=== PATIENT | male | born 1945 | race Caucasian/White ===

== ENCOUNTER → 2017-04-09 | Outpatient (CLI) | payer MEDICARE, BC ==
[2016-08-09 18:34] VITALS: BMI 31.9
[~2017-04-09] MED LIST: ACE325 PO; ACET500T68 PO; ALBU8.5H IH; ALLO100T70 PO; AMOX1TAB9 PO; ASP325 PO; ASP81 PO; ASPI-1471 PO; ASPI-715 PO; AUG875 PO; AZIT-17 PO; BIS10S PR; BUPR-136 PO; BUPR200T18 PO; CA C1TAB85 PO; CAR3.125 PO; CAR6.25 PO; CASP50VI2 IV; CEFT2FRO4 IV; CELE-1 PO; CHOL200074 PO; CLIN300C99 PO; CLO75 PO; DEXL60CA6 PO; DIA10 PO; DIA5 PO; DIAZ-308 PO; DIAZ-311 PO; DICL1TAB85 PO; DOC100 PO; DULO30CA35 PO; DULO60CA51 PO; DULOXETINE; ENOX40DI8 SQ; ESOM40CA42 PO; FEXO180T74 PO; FLU IM; FLUC200T56 PO; FLUT12HF2 IH; FLUT16SP20 NS; FLUT1DIS28 IH; GABA-549 PO; HYDR-5517 PO; ITRA10SO2 PO; KET10 PO; LANS30CA63 PO; LANS30TA PO; LEV500 PO; LEVO-85 PO; LEVO750T44 PO; LID5T TOP; LIDO10VI16 IB; LIS5 PO; LISI5TAB25 PO; LOR10/500 PO; LOR5/325; LORA-630 PO; LOSA100T67 PO; MELO-205 PO; METR-1 PO; MOM PO; MORP-18 PO; MORP-20 PO; MORP-21 PO; MORP60TA50 PO; MULT1TAB64 PO; NIF10 PO; NIFS30 PO; NIT4 SL; NYST100016 PO; OMEP40CA48 PO; ONDA4TAB PO; OXYC-373 PO; OXYC-375 PO; OXYC-865 PO; OXYC-870 PO; OXYC20TA77 PO; OXYC20TA86 PO; OXYC30TA3 PO; OXYC60TA PO; OXYGENHOME INH; PAN40 PO; PANT40TA65 PO; PER PO; POLY17PO25 PO; PRE50 PO; PRED-420 PO; PRED20TA6 PO; RANI-320 PO; ROS10 PO; SIMV-42 PO; SIMV-49 PO; TAMS0.4C25 PO; TAMS0.4C70 PO; TIO18R INH; TRAZ-163 PO; TRAZ150T61 PO; TRAZ50 PO; TRI40I IART; TRILPIX PO; VALA100062 PO; ZOLP-350 PO; [UNRECOGNIZED DRUG - CODE] PO; [UNRECOGNIZED DRUG - CODE] PO; oxygen
[2017-04-09 11:31] LABS: PLATELET COUNT, AUTOMATED 329 K/uL (150-450)
--- NOTE | 2017-04-09 11:52 | RADIOLOGY IMAGING REPORT ---
[place] [facility] [place] NAME: Jaswinder Hall : 1945 MR: [id number] V: [id number] EXAM DATE: ORDERING PHYSICIAN: LEANNE DOWNING TECHNOLOGIST: Location: [facility] Patient: Jaswinder Hall : 1945 Visit/Account:[id number] Date of Sevice: 04/09/2017 CHEST PA AND LAT Additional pertinent History: COPD dyspnea hypertension COMPARISON STUDIES: 03/15/2017 FINDINGS: Support lines and catheters: Oxygen tubing. There are stimulator leads extending into the mid thoraci c spine Lungs and Pleura: There are pleural reactive atelectatic and scarring changes at the left lung base. Blunting of both costophrenic angles compatible with small effusions left greater than right. When compared to previous study a central perihilar engorgement and a perihilar interstitial reticula r-nodular lung change is shown improvement. This likely represents improvement in what had been an el ement of pulmonary vascular congestion and interstitial pulmonary edema. Alternatively, an atypical b ilateral perihilar pneumonitis resolution is a possibility as well. Heart and vasculature: Negative. Yumi and Mediastinum: Negative. Bones and Chest wall: Negative. Upper Abdomen: Negative. IMPRESSION: 1. Persistent atelectatic and pleural reactive/scarring changes noted in both lung bases left greater than right. Interval clearing of what appear to have been a pulmonary vascular congestion and perihi lar interstitial pulmonary edema pattern. Recommend clinical correlation appropriate follow-up. Report Dictated By: Bjorn Clemens MD at 04/09/2017 11:43 AM Report E-Signed By: Bjorn Clemens MD at 04/09/2017 11:46 AM WSN:[id number]
--- NOTE | 2017-04-09 12:11 | EKG ---
FACILITY: [facility] [place] PATIENT NAME: YVES HERRING : [id number] MR: [id number] V: [id number] EXAM DATE: ORDERING PHYSICIAN: LEANNE DOWNING TECHNOLOGIST: KEENA Test Reason : CAD Blood Pressure : / mmHG Vent. Rate : 054 BPM Atrial Rate : 054 BPM P-R Int : 172 ms QRS Dur : 090 ms QT Int : 458 ms P-R-T Axes : 048 043 035 degrees QTc Int : 434 ms Sinus bradycardia Otherwise normal ECG Referred By: SALINA Confirmed By:
== END ==
LOC: LAB 10:38
PROVIDERS: ATTEND Internal Medicine
DX: J98.11 Atelectasis (principal); J98.4 Other disorders of lung; R00.1 Bradycardia, unspecified; J44.9 Chronic obstructive pulmonary disease, unspecified; G89.29 Other chronic pain; R06.00 Dyspnea, unspecified; I10 Essential (primary) hypertension; I25.10 Atherosclerotic heart disease of native coronary artery without angina pectoris
CPT/HCPCS: 36415; 71046; 82040; 82247; 82310; 82374; 82435; 82565; 82947; 84075; 84132; 84155; 84295; 84443; 84450; 84460; 84520; 85025

== ENCOUNTER 2017-04-10 00:16 | Observation (INO) | payer MEDICARE, BC ==
[2017-04-10] VITALS (15 sets, daily range): BP systolic 111–153; BP diastolic 55–95
[~2017-04-10] VITALS: Ht 172.7 cm; Wt 82.3 kg
[2017-04-10] MEDS ORDERED: ROPIVACAINE 0.2% 20 ML VIAL ONE (06:47)
[2017-04-10] MEDS ORDERED: NORMOSOL R SOLN(*) 1000 ML BAG 1,000 ML IV PRN (12:00)
[2017-04-10] MEDS ORDERED: MIDAZOLAM 2 MG/2 ML VIAL IVP ONE (12:00)
[2017-04-10] MEDS ORDERED: LIDOCAINE/SOD BICARB 8.4% SYR ID ONE (12:00)
[2017-04-10] MEDS ORDERED: ceFAZolin(*) 2GM/D5W 50ML 50 ML IVPB ONE (12:00)
[2017-04-10] MEDS ORDERED: BACITRACIN OINT 15 GM TUBE TP ONE (13:05)
[2017-04-10] MEDS ORDERED: ALBUTEROL/IPRATROPIUM 3 ML NEB ONE (13:11)
[2017-04-10] MEDS ORDERED: ROPIVACAINE 0.5% 20 ML VIAL ONE (13:27)
[2017-04-10] MEDS ORDERED: LIDOCAINE MPF 1% 5 ML VIAL ONE (13:28)
[2017-04-10] MEDS ORDERED: PROPOFOL EMUL(*) 10MG/ML 20 ML 20 ML ONE (13:28)
[2017-04-10] MEDS ORDERED: MIDAZOLAM 2 MG/2 ML VIAL ONE (13:48)
[2017-04-10] MEDS ORDERED: KETAMINE HCL 200 MG/20 ML MDV ONE (14:22)
[2017-04-10] MEDS ORDERED: PROMETHAZINE 25 MG/ML 1 ML AMP IVP PRN (15:55)
[2017-04-10] MEDS ORDERED: ONDANSETRON 4 MG/2 ML VIAL IVP PRN (15:55)
[2017-04-10] MEDS ORDERED: FLUSH 10 ML SYR IVP PRN (15:55)
[2017-04-10] MEDS: MORPHINE 4 MG/ML SYR IVP PRN ×2 (19:50→22:10)
[2017-04-10] MEDS: ceFAZolin 1 GM VIAL IVP SCH (21:06)
[2017-04-10] MEDS ORDERED: GABAPENTIN 300 MG CAP PO SCH ×2 (22:20→22:56)
[2017-04-10] MEDS: SALMETEROL/FLUTIC 250/50 1 INH INH SCH (22:20)
[2017-04-10] MEDS ORDERED: traZODone HCL 50 MG TAB PO PRN (22:20)
[2017-04-10] MEDS ORDERED: ALBUTEROL 2.5 MG/3 ML NEB NEB PRN (22:20)
--- NOTE | 2017-04-10 22:35 | Hospitalist Progress Note ---
Subjective Progress Notes Subjective No cp/sob. 1100cc of crystalloid, ketamine and versed given intra-op. Physical Exam Vital Signs Date Time Temp Pulse Resp B/P (MAP) Pulse Ox O2 Delivery O2 Flow Rate FiO2 04/10/17 22:00 66 133/66 (88) 93 04/10/17 20:17 98.2 16 04/10/17 19:22 Nasal Cannula 4.0 Intake and Output 04/11/17 07:00 Intake Total 1250 ml Output Total 600 ml Balance 650 ml Intake IV Total 1250 ml Output Urine Total 600 ml # Voids 1 General Appearance: Alert, Awake, No Acute Distress Cardiovascular: Regular Rate and Rhythm Respiratory: Clear to Auscultation Extremities: No Edema Assessment and Plan Problems: (1) Bimalleolar ankle fracture Status: Acute Assessment & Plan: He had an ORIF of the left ankle. No CV/pulmonary issues. (2) COPD (chronic obstructive pulmonary disease) Status: Chronic Assessment & Plan: Lungs are clear. He is chronically on Spiriva and Advair. Will restart both and give the Advair tonight. He will get albuterol prn. (3) Chronic back pain Status: Chronic Assessment & Plan: Continue MS Contin, Percocet, and Gabapentin. (4) GERD (gastroesophageal reflux disease) Status: Chronic Assessment & Plan: Continue Protonix. (5) BPH (benign prostatic hyperplasia) Status: Chronic Assessment & Plan: Continue Flomax. (6) Hypertension, benign Onset Date: 02/13/2014 Status: Chronic Assessment & Plan: Continue Coreg with parameters. (7) Coronary artery disease Status: Chronic Assessment & Plan: Continue ASA. Will hold Simvastatin for now. (8) Depression Status: Chronic Assessment & Plan: Continue Cymbalta. (9) Gout, unspecified Status: Chronic Assessment & Plan: Continue Allopurinol. Copies to: LEANNE DOWNING MD Exam Sepsis Risk: No Definite Risk DARYL RING MD Apr 10, 2017 22:35
--- NOTE | 2017-04-10 23:00 | OPERATIVE REPORT 1 ---
EVENT DATE: April 10, 2017 SURGEON: Jose Best MD SAFETY PERSON: RITA Mendoza ANESTHESIOLOGIST: Jason Cavazos MD ANESTHESIA: General PREOPERATIVE DIAGNOSIS Left bimalleolar ankle fracture. POSTOPERATIVE DIAGNOSIS Left bimalleolar ankle fracture. PROCEDURE PERFORMED Open reduction and internal fixation bimalleolar ankle fracture. ESTIMATED BLOOD LOSS Minimum. TOURNIQUET TIME Less than an hour. DESCRIPTION OF OPERATION The patient was brought to the operating room and placed in the supine position. She had a bump placed under her left hip. Her left lower extremity was prepped and draped in the normal sterile fashion using Prevail and a sterile stockinette. A sterile U-drape and a sterile extremity drape were placed over the lower extremity. The stockinette was incised right above the knee and held with Coban. An Esmarch was then used to exsanguinate the lower extremity, and the tourniquet was turned up to 300 mmHg. The first incision that was made was over the lateral malleolus. The skin was incised with a 15 blade and taken down to subcutaneous tissue. The subcutaneous tissue was bluntly dissected down to the fracture. The fracture was identified. There was marked scarring being four weeks out. Therefore, we spent a lot of time debriding the fracture site and all the scarring around the fracture, but nothing had actually healed. Once I was able to open this up, I was able to get it out to length with no issue. I then turned my attention to the medial malleolus. I opened up the medial side. There was almost a complete ulcer on that side. There was no evidence of any gross infection or drainage. I made an incision just over the medial malleolus. The skin was incised with a 15 blade and carried down to the subcutaneous tissue. The subcutaneous tissue was bluntly dissected down to the fracture. I then debrided this fracture because there was a lot of scarring, and I could not get complete reduction until I removed it. Once I had all of the scar removed, I was easily able to reduce the medial side as well as the lateral side. On the lateral side, I then placed a six-hole one-third tubular plate. I locked the distal screws first using three locking distal screws. I then placed a push-pull screw just proximally and then used a lamina team otr truck driver to push the plate out just to get exactly the length I wanted, and then I locked the proximal screws. The last screw I placed was the lag screw between the fracture using a 3.5/2.5 lag technique. I brought fluoroscopy in, checked the AP and lateral, and found to have excellent alignment of the fracture with hardware in good position. I then turned my attention to fixing the medial side. I was able to reduce the medial side using a two-part reduction clamp. I brought fluoroscopy in, AP and lateral, and found to have excellent alignment. I then placed two screws in a lag technique across it, using a 3.5/2.5 lag technique, both 40 mm in length. I brought fluoroscopy in, AP and lateral, and found to have excellent alignment in the lateral and the anterior x-rays. I closed using 3-0 Monocryl and talat , Adaptic, 4 x 4's, and Kenneth. The patient went to recovery with no complications. ELGIN
[2017-04-10] MEDS: MORPHINE 60 MG PO SCH (23:01)
[2017-04-10] MEDS: PANTOPRAZOLE SOD 40 MG TABEC PO SCH (23:02)
[2017-04-10] MEDS: buPROPion SR 150 MG TABCR PO SCH (23:02)
[2017-04-11] VITALS: BP 131/54
[2017-04-11 03:45] VITALS: BP 100/52
[2017-04-11] MEDS: MORPHINE 4 MG/ML SYR IVP PRN ×3 (04:14→11:49)
[2017-04-11] MEDS: ceFAZolin 1 GM VIAL IVP SCH ×2 (05:15→13:18)
[2017-04-11] MEDS: SALMETEROL/FLUTIC 250/50 1 INH INH SCH (05:49)
[2017-04-11] MEDS: GABAPENTIN 300 MG CAP PO SCH ×2 (05:53→11:48)
[2017-04-11] MEDS ORDERED: TIOTROPIUM BROM INH 18 MCG/CAP INH SCH (06:00)
[2017-04-11 07:37] VITALS: BP 105/48
[2017-04-11] MEDS: MORPHINE 60 MG PO SCH (08:23)
[2017-04-11] MEDS: buPROPion SR 150 MG TABCR PO SCH (08:23)
[2017-04-11] MEDS: PANTOPRAZOLE SOD 40 MG TABEC PO SCH (08:23)
[2017-04-11] MEDS: CARVEDILOL 3.125 MG TAB PO SCH ×2 (08:23→08:26)
--- NOTE | 2017-04-11 08:52 | Hospitalist Progress Note ---
Subjective Progress Notes Subjective No cp/sob. He is having more chronic back pain and the ankle is more painful this morning. Physical Exam Vital Signs Date Time Temp Pulse Resp B/P (MAP) Pulse Ox O2 Delivery O2 Flow Rate FiO2 04/11/17 08:07 91 Nasal Cannula 4.0 04/11/17 07:37 97.8 67 20 105/48 (67) General Appearance: Alert, Awake, No Acute Distress Respiratory: Clear to Auscultation Assessment and Plan Problems: (1) Bimalleolar ankle fracture Status: Acute Assessment & Plan: He had an ORIF of the left ankle. No CV/pulmonary issues. (2) COPD (chronic obstructive pulmonary disease) Status: Chronic Assessment & Plan: Lungs are clear. He is chronically on Spiriva and Advair. He is on O2 at 3-4 liters at home, baseline. He will get albuterol prn while in the hospital. (3) Chronic back pain Status: Chronic Assessment & Plan: Continue MS Contin, Percocet, and Gabapentin. (4) GERD (gastroesophageal reflux disease) Status: Chronic Assessment & Plan: Continue Protonix. (5) BPH (benign prostatic hyperplasia) Status: Chronic Assessment & Plan: Continue Flomax. (6) Hypertension, benign Onset Date: 02/13/2014 Status: Chronic Assessment & Plan: Continue Coreg with parameters while in the hospital. He is to restart it in 2 days if he goes home today. (7) Coronary artery disease Status: Chronic Assessment & Plan: Continue ASA. Will hold Simvastatin for now. (8) Depression Status: Chronic Assessment & Plan: Continue Cymbalta. (9) Gout, unspecified Status: Chronic Assessment & Plan: Continue Allopurinol. Exam Sepsis Risk: No Definite Risk DARYL RING MD Apr 11, 2017 08:52
[2017-04-11] MEDS ORDERED: TAMSULOSIN HCL 0.4 MG CAP PO SCH (09:00)
[2017-04-11] MEDS ORDERED: ALLOPURINOL 100 MG TAB PO SCH (09:00)
[2017-04-11] MEDS ORDERED: ASPIRIN 81 MG ENTERIC COATED PO SCH (09:00)
[2017-04-11] MEDS ORDERED: DULoxetine HCL 30 MG CAPCR PO SCH (09:00)
[2017-04-11 09:56] VITALS: Ht 172.7 cm; Wt 82.3 kg
[2017-04-11] MEDS ORDERED: OXYC-870 PO (13:27)
[2017-04-12] MEDS ORDERED: DULO30CA35 PO (14:12)
[2017-04-17] MEDS ORDERED: OXYC-375 PO (12:59)
[2017-04-17] MEDS ORDERED: MORP60TA50 PO (12:59)
== END 2017-04-11 13:14 | disposition home health service (06) ==
LOC: OR 00:16 → MED 16:55 → INTOOBSV 16:55
PROVIDERS: ADMIT Orthopaedic Surgery; ATTEND Orthopaedic Surgery
DX: S82.845A Nondisplaced bimalleolar fracture of left lower leg, initial encounter for closed fracture (principal)
CPT/HCPCS: 27814; 76000; 76942; 94640; 97116; 97161; 97530; A9270; C1713; G0378; J0690; J2001; J2250; J2270; J2704; J2795; J3490; J3535; J7620

== ENCOUNTER 2017-08-30 11:15 | Outpatient (RCR) | payer MEDICARE, BC ==
--- NOTE | 2017-08-10 13:56 | PT INITIAL EVALUATION ---
MEDICAL DIAGNOSIS: Left Ankle Bimalleolar Fracture with Medial Joint Granuloma TREATMENT DIAGNOSIS: Left Ankle Bimalleolar Fracture with Medial Joint Granuloma DATE OF ONSET: 03/18/17 SUBJECTIVE: Jaswinder is a 71 year-old male presenting to physical therapy 4 MO following surgical intervention for a bimalleolar fracture of the L ankle. Pt broke his ankle on 03/18/17, and had surgery on 04/10/17. Healing was complicated by the formation of a granuloma along the medial malleolus. Pt has been working on his ROM and mobility independently and is now fully ambulatory with occasional use of a cane or walker for balance and stability. Pt reports that the ankle has no pain currently and only hurts when he walks for a long time, goes up stairs, or twists on it. Pt has high back pain today and has a history of back pain and COPD. REHAB PROBLEM LIST: Increased Pain Decreased ROM Decreased Strength Impaired Transfers Decreased Endurance Decreased Function Decreased ADL's Decreased Mobility Decreased Gait PREVIOUS MEDICAL HISTORY: See EMR OCCUPATION: Retired from [employer] OBJECTIVE: Pt is on oxygen throughout session. Posture: Significant forward trunk lean with increased thoracic kyphosis. ROM: Ankle ROM (L,R): PF: 30, 40, DF: 2,2, Ever: 15,16, Inv: 11, 30. Strength: LE MMT (L,R): Hip: Flex: 4,5, Ext: 4+, 4+, Abd: 4+, 4+, Add: 5, 5. Knee: Ext: 4+, 4+, Flex: 5, 5. Ankle: PF: 4, 4+, DF: 4+, 4+, Ever: 4+, 5, Inv: 4+, 4+ Palpation: Pt is tender to palpation along medial malleolus with significant restrictions surrounding incision and tightness of skin and swelling and a small scab remaining mid portion. Lateral incision has good mobility. Gait: Forward trunk lean with wide NATALIE without hip ext. Balance: 4 Stage Balance: Narrow NATALIE: 25 sec with significant AP sway and onset of back pain Other Objective Findings: FOTO Ankle/Knee: 42/50 ASSESSMENT: Pt shows signs and symptoms consistent with generalized weakness and decreased motion secondary to L ankle fx with surgical intervention. Physical therapy is indicated to address the above listed impairments to improve pt function with ADL's and ambulation. Short Term Goals In 3 weeks pt will increase L hip and knee strength to equal to that of the R hip and knee for improved function with ADL's. In 3 weeks pt will be able to hearing aid consultant tandem stance B for > 10 seconds for improved balance with ADL's. In 6 weeks pt will increase FOTO ankle score to 46/50 for improved function with ADL's. In 6 weeks pt will improve L ankle ROM to equal to that of the R side for improved function with ADL's. Patient's Goals Improve function, strength and mobility. PLAN: Patient to be seen for Manual Therapy/STM/MET Strengthening/condition Ice/Heat Range of Motion Spinal Stabilization Ultrasound Stretching Iontophoresis Neuromuscular Re-ed Closed Chain Program Electrical Stim Posture/Body mechanics Gait Trg/Balance Trg Biofeedback Home Exercise Program Mech./Manual Traction Therapeutic Activities 2x/Week for 6 Weeks If you have any questions, comments, or concerns about this report or plan, please contact me at . Thank you, Hannah Prakash, PT, DPT, CLT ELGIN
[~2017-08-30 11:15] MED LIST changes: +DULO60CA56 PO; -OXYC-375 PO; +OXYC1TAB78 PO
[2017-08-31] MEDS ORDERED: DULO60CA7 PO (11:05)
== END 2017-08-30 18:00 | disposition home or self-care (01) ==
LOC: PT 11:15
PROVIDERS: ATTEND Orthopaedic Surgery
DX: Z47.89 Encounter for other orthopedic aftercare (principal); S82.842S Displaced bimalleolar fracture of left lower leg, sequela; R20.2 Paresthesia of skin; M62.81 Muscle weakness (generalized); M54.9 Dorsalgia, unspecified; X58.XXXS Exposure to other specified factors, sequela
CPT/HCPCS: 97162

== ENCOUNTER 2017-09-02 15:50 | Inpatient (IN) | payer MEDICARE, BC ==
[~2017-09-02] VITALS: Ht 172.7 cm; Wt 86.6 kg
--- NOTE | 2017-09-02 15:54 | ER Report ---
History and Physical Time Seen By MD: 15:54 HPI/ROS CHIEF COMPLAINT: chest pain/sob HISTORY OF PRESENT ILLNESS: Pt states that today at 11am started with sharp r sided chest pain that makes it difficult for him to take a deep breath. Pt unable to get comfortable. Pt has copd and hx of heart ds but states this feels different. no leg pain. no recent travel. PT called ems since not improving. Symptoms constant. ems states he was in the 70s on his usual 5 liters oxygen at home so put him on nonrebreather to bring him up to 90. Pt states he tried inhaler at home no relief. pt asking for somethinh for pain. REVIEW OF SYSTEMS: Constitutional: No fever, no chills. Eyes: No discharge. ENT: No sore throat. Cardiovascular: + right sided chest pain, no palpitations. Respiratory: No cough, + shortness of breath. Gastrointestinal: No abdominal pain, no vomiting. Genitourinary: No hematuria. Musculoskeletal: No back pain. Skin: No rashes. Neurological: No headache. Allergies: Coded Allergies: cyclobenzaprine (Verified Adverse Reaction, Intermediate, felt very sleepy and confused. , 08/31/17) Home Meds Active Scripts Allopurinol (ALLOPURINOL) 100 Mg Tablet, 1 TAB PO QDAY, #90 TAB 4 Refills TAKE 1 TABLET BY MOUTH EVERY DAY Prov:LEANNE DOWNING MD 08/22/17 Bupropion Hcl (BUPROPION HCL SR) 150 Mg Tablet.er, 1 TAB PO QDAY, #90 TAB 1 Refill Prov:LEANNE DOWNING MD 08/06/17 Oxycodone Hcl/Acetaminophen (OXYCODONE-ACETAMINOPHEN 10-325) 1 Each Tablet, 1 EACH PO TID Y for pain, #90 TAB refill 10/14/2017 Prov:LEANNE DOWNING MD 08/06/17 Morphine Sulfate (MORPHINE SULFATE ER) 60 Mg Tablet.er, 60 MG PO BID, #60 TAB 10/14/2017 Prov:LEANNE DOWNING MD 08/06/17 Tamsulosin Hcl (TAMSULOSIN HCL) 0.4 Mg Cap.er.24h, 2 CAP PO DAILY, #180 CAP 1 Refill Prov:LEANNE DOWNING MD 07/31/17 Trazodone Hcl (TRAZODONE HCL) 100 Mg Tablet, 100 MG PO QHS Y for insomnia, #30 TAB 6 Refills Prov:LEANNE DOWNING MD 07/30/17 Pantoprazole Sodium (PANTOPRAZOLE SODIUM) 40 Mg Tablet., 40 MG PO BID, #180 TAB.SR 3 Refills Prov:LEANNE DOWNING MD 03/29/17 Carvedilol (CARVEDILOL) 3.125 Mg Tab, 1 TAB PO BID, #180 TAB 3 Refills TAKE 1 TABLET BY MOUTH TWICE A DAY Prov:LEANNE DOWNING MD 01/22/17 Gabapentin (GABAPENTIN) 300 Mg Capsule, 300 MG PO TID, #120 CAPSULE 6 Refills Prov:ROBB RUSH JR, MD 11/24/16 Simvastatin (SIMVASTATIN) 20 Mg Tablet, 1 TAB PO HS, #60 TAB 6 Refills Prov:LEANNE DOWNING MD 07/20/16 Oxygen (OXYGEN) Inha, 4-5 L INH q daily, #4 L Oxygen at 4-5L continuous and may increase to 6L with activity Prov:AURE CUENCA MD 12/29/15 Reported Medications Duloxetine HCl (Duloxetine HCl) 60 Mg Capsule.dr, 1 TAB PO BID 08/31/17 Fluticasone/Salmeterol (ADVAIR HFA 115-21 MCG INHALER) 12 Gm Hfa.aer.ad, 2 PUFF IH BID 04/09/17 Aspirin (ASPIR 81) 81 Mg Tablet.dr, 81 MG PO QDAY, TAB 03/15/17 Tiotropium [place] (SPIRIVA) 18 Mcg/Cap Inh, 18 MCG INH DAILY, INH 12/28/15 Multivitamin (MULTI VITAMIN DAILY) 1 Each Tablet, 1 EACH PO DAILY 07/17/14 Discontinued Scripts Duloxetine Hcl (CYMBALTA) 60 Mg Capsule., 60 MG PO QDAY, #90 CAP 1 Refill Prov:LEANNE DOWNING MD 08/06/17 Past Medical/Surgical History Pmhx: depression, alcoholism, chronic renal insuff with CR 1.5, barretts esophagus, gerd, sciatica, cad, mi, htn, hyperlipid, copd, back pain Pshx: PTCA (2 stents 2007), wilfrido, esophageus dilatation, rectal fistula Reviewed Nurses Notes: Yes Old Medical Records Reviewed: Yes Hx Smoking: Yes (SMOKED 1 PPD FOR 30 YEARS) Smoking Status: Former Smoker Exposure to Second Hand Smoke?: No Hx Substance Use Disorder: No Hx Alcohol Use: Yes Constitutional Vital Sign - Last 24 Hours 09/02/17 09/02/17 09/02/17 09/02/17 15:50 15:54 15:54 16:00 Temp 97.5 Pulse ??? 105 Resp 20 B/P (MAP) 112/60 (77) 112/60 104/65 (78) Pulse Ox 95 O2 Delivery Non-Rebreather 09/02/17 09/02/17 09/02/17 09/02/17 16:05 16:16 16:20 16:30 Pulse 104 110 Resp 23 32 B/P (MAP) 119/66 (83) Pulse Ox 90 87 O2 Flow Rate 10.0 09/02/17 09/02/17 09/02/17 09/02/17 16:35 16:50 16:57 16:59 Pulse 101 108 Resp 35 29 B/P (MAP) 124/78 (93) 126/85 (99) Pulse Ox 92 09/02/17 09/02/17 09/02/17 09/02/17 17:05 17:08 17:20 17:30 Pulse 100 101 Resp 20 37 B/P (MAP) 110/61 (77) 109/60 (76) Pulse Ox 92 90 General Appearance: The patient is alert, has no immediate need for airway protection and no signs of toxicity. Eyes: Pupils equal and round no pallor or injection, EOMI ENT: no pharyngeal erythema or exudates, Mucous membranes are moist Respiratory: There are no retractions, lungs are clear to auscultation. Cardiovascular: Regular rate and rhythm. pulses are equal and symmetrical Gastrointestinal: Abdomen is soft and non tender, no masses, bowel sounds normal, no guarding, no rigidity or rebound Neurological: Cranial nerves II-XII grossly intact, no sensory or motor loss Skin: Warm and dry, no rashes. Musculoskeletal: Neck is supple non tender, no vertebral tenderness Extremities are nontender, non swollen and have full range of motion. DIFFERENTIAL DIAGNOSIS: After history and physical exam differential diagnosis was considered for pneumothorax, PE, pleurisy, cad, esophageal rupture Medical Decision Making Data Points Result Diagram: 09/02/17 1550 09/02/17 1550 Laboratory Hematology Test 09/02/17 15:50 Red Blood Count 3.79 M/uL (4.00-5.60) Mean Corpuscular Volume 88.3 fL (80.0-96.0) Mean Corpuscular Hemoglobin 29.3 pg (26.0-33.0) Mean Corpuscular Hemoglobin Concent 33.2 g/dL (32.0-36.0) Red Cell Distribution Width 17.6 % (11.5-14.5) Mean Platelet Volume 6.8 fL (7.2-11.1) Neutrophils (%) (Auto) 90.8 % (39.4-72.5) Lymphocytes (%) (Auto) 5.8 % (17.6-49.6) Monocytes (%) (Auto) 3.0 % (4.1-12.4) Eosinophils (%) (Auto) 0.1 % (0.4-6.7) Basophils (%) (Auto) 0.3 % (0.3-1.4) Nucleated RBC Relative Count (auto) 0.0 /100WBC Neutrophils # (Auto) 14.7 K/uL (2.0-7.4) Lymphocytes # (Auto) 0.9 K/uL (1.3-3.6) Monocytes # (Auto) 0.5 K/uL (0.3-1.0) Eosinophils # (Auto) 0.0 K/uL (0.0-0.5) Basophils # (Auto) 0.0 K/uL (0.0-0.1) Nucleated RBC Absolute Count (auto) 0.00 K/uL Prothrombin Time 14.1 seconds (12.0-14.4) Prothromb Time International Ratio 1.08 Activated Partial Thromboplast Time 30 seconds (23-35) D-Dimer Quantitative (PE/DVT) 2.61 ug/ml (0-0.50) Sodium Level 138 mmol/L (137-145) Potassium Level 3.9 mmol/L (3.5-5.0) Chloride Level 96 mmol/L (98-107) Carbon Dioxide Level 29 mmol/L (22-30) Blood Urea Nitrogen 12 mg/dl (9-21) Creatinine 0.90 mg/dl (0.66-1.25) Glomerular Filtration Rate Calc > 60.0 Random Glucose 126 mg/dl (75-110) Calcium Level 9.5 mg/dl (8.4-10.2) Total Bilirubin 0.5 mg/dl (0.2-1.3) Aspartate Amino Transf (AST/SGOT) 13 U/L (0-35) Alanine Aminotransferase (ALT/SGPT) 16 U/L (0-56) Alkaline Phosphatase 124 U/L (0-126) Troponin I < 0.012 ng/ml Total Protein 7.9 gm/dl (6.3-8.2) Albumin 3.6 g/dl (3.5-5.0) Chemistry Test 09/02/17 15:50 White Blood Count 16.2 k/uL (4.5-11.0) Red Blood Count 3.79 M/uL (4.00-5.60) Hemoglobin 11.1 g/dL (14.0-18.0) Hematocrit 33.5 % (42.0-52.0) Mean Corpuscular Volume 88.3 fL (80.0-96.0) Mean Corpuscular Hemoglobin 29.3 pg (26.0-33.0) Mean Corpuscular Hemoglobin Concent 33.2 g/dL (32.0-36.0) Red Cell Distribution Width 17.6 % (11.5-14.5) Platelet Count 403 K/uL (150-450) Mean Platelet Volume 6.8 fL (7.2-11.1) Neutrophils (%) (Auto) 90.8 % (39.4-72.5) Lymphocytes (%) (Auto) 5.8 % (17.6-49.6) Monocytes (%) (Auto) 3.0 % (4.1-12.4) Eosinophils (%) (Auto) 0.1 % (0.4-6.7) Basophils (%) (Auto) 0.3 % (0.3-1.4) Nucleated RBC Relative Count (auto) 0.0 /100WBC Neutrophils # (Auto) 14.7 K/uL (2.0-7.4) Lymphocytes # (Auto) 0.9 K/uL (1.3-3.6) Monocytes # (Auto) 0.5 K/uL (0.3-1.0) Eosinophils # (Auto) 0.0 K/uL (0.0-0.5) Basophils # (Auto) 0.0 K/uL (0.0-0.1) Nucleated RBC Absolute Count (auto) 0.00 K/uL Prothrombin Time 14.1 seconds (12.0-14.4) Prothromb Time International Ratio 1.08 Activated Partial Thromboplast Time 30 seconds (23-35) D-Dimer Quantitative (PE/DVT) 2.61 ug/ml (0-0.50) Glomerular Filtration Rate Calc > 60.0 Calcium Level 9.5 mg/dl (8.4-10.2) Total Bilirubin 0.5 mg/dl (0.2-1.3) Aspartate Amino Transf (AST/SGOT) 13 U/L (0-35) Alanine Aminotransferase (ALT/SGPT) 16 U/L (0-56) Alkaline Phosphatase 124 U/L (0-126) Troponin I < 0.012 ng/ml Total Protein 7.9 gm/dl (6.3-8.2) Albumin 3.6 g/dl (3.5-5.0) Coagulation Test 09/02/17 15:50 Prothrombin Time 14.1 seconds Prothromb Time International Ratio 1.08 Activated Partial Thromboplast Time 30 seconds D-Dimer Quantitative (PE/DVT) 2.61 ug/ml EKG/Imaging EKG Interpretation Sinus tach @104 with possible left atrial enlagement and incomplete RBBB; similar to prior however rate is now tachy compared to 03/2017 and 04/2017 Imaging cxr: pleural effusion right base CT: R lower lobe extensive colsolidation is suspicious pneumonia, no PE. moderate righ tpleural effusion, emphysema ED Course/Re-evaluation Clinical Indication for ER IV: IV Access ED Course 09/02/2017 4:27:31 pm Pts creatine is stable. will order the ct to rule out pe. Pt still having pain and unable to lie flat due to pain will remedicate patient and sent to ct. 09/02/2017 5:49:[address] shows pleural effusion and consolidation. Ordered blood cultures. Spoke with Dr. Cuenca who prefers us to hold antibiotics in the emergency department until he sees the patient up on the floor. Decision to Disposition Date: Sep 02, 2017 Decision to Disposition Time: 17:55 Depart Departure Latest Vital Signs Vital Signs Date Time Temp Pulse Resp B/P (MAP) Pulse Ox O2 Delivery O2 Flow Rate FiO2 09/02/17 17:30 109/60 (76) 09/02/17 17:20 101 37 90 09/02/17 16:16 10.0 09/02/17 15:54 97.5 Non-Rebreather Impression: Primary Impression: Pneumonia Additional Impressions: Pleural effusion on right Pleuritic chest pain Condition: Condition Unchanged Disposition: Admitted from ER Referrals: LEANNE DOWNING MD (PCP) Problem Qualifiers Primary Impression: Pneumonia Pneumonia type: due to unspecified organism Laterality: right Lung location : upper lobe of lung Qualified Codes: J18.1 - Lobar pneumonia, unspecified organism MIRNA MARK DO Sep 02, 2017 15:54
[2017-09-02] MEDS ORDERED: NS(*) 0.9% 500 ML BAG 500 ML IV ONE (15:58)
[2017-09-02] MEDS ORDERED: fentaNYL CITR 100 MCG/2 ML AMP IVP ONE ×2 (16:00→16:25)
[2017-09-02] MEDS ORDERED: ASPIRIN 81 MG CHEW PO ONE (16:00)
[2017-09-02 16:06] LABS: PLATELET COUNT, AUTOMATED 403 K/uL (150-450)
--- NOTE | 2017-09-02 16:24 | RADIOLOGY IMAGING REPORT ---
FACILITY: [facility] PATIENT NAME: Jaswinder Hall : 1945 MR: [id number] V: [id number] EXAM DATE: ORDERING PHYSICIAN: MIRNA MARK TECHNOLOGIST: Location: [facility] [place] Patient: Jaswinder Hall : 1945 Visit/Account:[id number] Date of Sevice: 09/02/2017 Examination: CHEST SINGLE AP Comparison: 04/09/2017 and earlier. History: Chest pain. Findings: Cardiac and hilar contour is mildly enlarged. Small moderate right and small left pleural e ffusions. The right pleural effusion has developed in the interval. Vascular congestion with indistin ctness of the vascular margins suggestive of edema. Right lung base density is favored to be volume l oss, less likely consolidation. No pneumothorax. Spinal cord stimulator leads as before. Osseous stru ctures are intact. IMPRESSION: The radiographic findings are most suggestive of congestive failure. Pneumonia is thought to be less likely. Report Dictated By: Oraico Arriola MD at 09/02/2017 4:17 PM Report E-Signed By: Oracio Arriola MD at 09/02/2017 4:20 PM WSN:[id number]
[2017-09-02 16:25] LABS: INR 1.08
[2017-09-02] MEDS ORDERED: KETAMINE HCL 200 MG/20 ML MDV IVP ONE (16:25)
[2017-09-02] MEDS ORDERED: NS 0.9% 25 ML BAG 50 ML ONE (16:41)
[2017-09-02] MEDS ORDERED: IOPAMIDOL 76% 75 ML INFUS BTL 75 ML ONE (16:41)
[2017-09-02] MEDS ORDERED: HYDROmorphone* 1 MG/ML 1 MG/ML ML IVP ONE (17:05)
--- NOTE | 2017-09-02 17:29 | RADIOLOGY IMAGING REPORT ---
FACILITY: [facility] - [place] PATIENT NAME: Jaswinder Hall : 1945 MR: [id number] V: [id number] EXAM DATE: ORDERING PHYSICIAN: MIRNA MARK TECHNOLOGIST: Location: [facility] Patient: Jaswinder Hall : 1945 Visit/Account:[id number] Date of Sevice: 09/02/2017 EXAMINATION: CT CHEST PULMONARY ANGIOGRAM COMPARISON: Chest x-ray same day and earlier. Chest CT 11/17/2016. HISTORY: Pleuritic chest pain. PROCEDURE: Pulmonary arterial phase imaging of the chest with 75 mL intravenous Isovue 370. Reconstru ction of the source data set includes multiplanar 2D in the sagittal and coronal planes, and 3D recon structed coronal slab MIP series. One of the following dose optimization techniques was utilized in the performance of this exam: Autom ated exposure control; adjustment of the mA and/or kV according to the patient's size; or use of an i terative reconstruction technique. Specific details can be referenced in the facility's radiology C T exam operational policy. FINDINGS: Pulmonary vasculature: There is good contrast opacification of the pulmonary arterial system. Mildly dilated 3.4 cm main pulmonary artery is unchanged. No pulmonary artery filling defect. Cardiac and mediastinum: Cardiac chamber size is normal. Mild coronary calcifications. No thoracic ao rtic aneurysm or dissection. Numerous mildly prominent mediastinal and hilar lymph nodes. Lungs and pleura: Left lower lobe and to lesser extent lingula chronic consolidation, small pleural e ffusion, and pleural thickening is minimally changed since 2017. No definite new or enlarging consoli dation is identified on the left. New moderate-sized simple appearing pleural effusion on the right w ith extensive consolidation in the right lower lobe. No pneumothorax or definite evidence of edema. M oderate emphysema as before. No new or enlarging nodule. Airways: No central airway occlusion. Scattered air bronchograms throughout the right lower lobe cons olidation. Upper abdomen: No evidence of acute disease within the visualized upper abdomen. Osseous structures: No acute changes. Spinal cord stimulator leads as before. IMPRESSION: 1. No pulmonary embolism. 2. Right lower lobe extensive consolidation is most suspicious for pneumonia. 3. Moderate right pleural effusion. 4. Small left pleural effusion and lower lung chronic consolidation/atelectasis is minimally changed since 08/08/2016. 5. Emphysema. Report Dictated By: Oracio Arriola MD at 09/02/2017 5:14 PM Report E-Signed By: Oracio Arriola MD at 09/02/2017 5:26 PM WSN:[id number]
[2017-09-02 18:20] VITALS: BP 115/76
[2017-09-02] MEDS ORDERED: KETOROLAC 30 MG/ML VIAL IVP ONE (18:30)
--- NOTE | 2017-09-02 18:34 | EKG ---
FACILITY: PATIENT NAME: YVES HERRING : [id number] MR: [id number] V: [id number] EXAM DATE: ORDERING PHYSICIAN: MIRNA MARK TECHNOLOGIST: TIN Schulz Reason : CP Blood Pressure : / mmHG Vent. Rate : 104 BPM Atrial Rate : 104 BPM P-R Int : 148 ms QRS Dur : 094 ms QT Int : 344 ms P-R-T Axes : 045 051 012 degrees QTc Int : 452 ms Sinus tachycardia Possible Left atrial enlargement Incomplete right bundle branch block Possible Inferior infarct , age undetermined Abnormal ECG Confirmed by AURE MULLINS ([id number]) on 09/02/2017 6:47:12 PM Referred By: TESSA Confirmed By:AURE MULLINS
[2017-09-02] MEDS ORDERED: FLUSH 10 ML SYR IVP PRN (18:35)
--- NOTE | 2017-09-02 18:58 | History & Physical ---
History of Present Illness Chief Complaint Short of breath/chest pain History of Present Illness 72yo male with PMHx significant for COPD, chronic back pain. He reports awakening this AM feeling "lousy" (no specific complaint), but began having sharp right-sided chest pain at about 1100AM. He states he had some cough with scant sputum, but "I always have a cough". He denied any fevers or chills. No LE swelling or pain. No N/V/diarrhea. No urinary complaints. No skin complaints/ rashes. He was evaluated in the ER and found to have elevated WBC count, increased O2 requirement, and right basilar consolidation with pleural effusion. No evidence of PE. He was recommended for admission. History Problems: (1) Status post ORIF of fracture of ankle Status: Resolved (2) Pulmonary hypertension Status: Chronic (3) Gout, unspecified Status: Chronic (4) Esophageal spasm Status: Chronic (5) COPD (chronic obstructive pulmonary disease) Status: Chronic (6) Constipation Status: Chronic (7) Anemia Onset Date: 09/07/2014 Status: Chronic (8) Perianal fistula Status: Acute (9) Mixed hyperlipidemia Onset Date: 02/13/2014 Status: Chronic (10) Depression Status: Chronic (11) Coronary artery disease Status: Chronic (12) Pulmonary nodule Status: Chronic (13) Chronic back pain Status: Chronic (14) Osteopenia Status: Chronic (15) Hypertension, benign Onset Date: 02/13/2014 Status: Chronic (16) BPH (benign prostatic hyperplasia) Status: Chronic (17) GERD (gastroesophageal reflux disease) Status: Chronic (18) Erosive esophagitis Status: Resolved (19) Hydrocele Status: Chronic (20) Inguinal hernia Status: Chronic (21) Syncope Status: Acute (22) History of lumbosacral spine surgery Status: Resolved (23) S/P cholecystectomy Status: Resolved Home Meds Active Scripts Allopurinol (ALLOPURINOL) 100 Mg Tablet, 1 TAB PO QDAY, #90 TAB 4 Refills TAKE 1 TABLET BY MOUTH EVERY DAY Prov:LEANNE DOWNING MD 08/22/17 Bupropion Hcl (BUPROPION HCL SR) 150 Mg Tablet.er, 1 TAB PO QDAY, #90 TAB 1 Refill Prov:LEANNE DOWNING MD 08/06/17 Oxycodone Hcl/Acetaminophen (OXYCODONE-ACETAMINOPHEN 10-325) 1 Each Tablet, 1 EACH PO TID Y for pain, #90 TAB refill 10/14/2017 Prov:LEANNE DOWNING MD 08/06/17 Morphine Sulfate (MORPHINE SULFATE ER) 60 Mg Tablet.er, 60 MG PO BID, #60 TAB 10/14/2017 Prov:LEANNE DOWNING MD 08/06/17 Tamsulosin Hcl (TAMSULOSIN HCL) 0.4 Mg Cap.er.24h, 2 CAP PO DAILY, #180 CAP 1 Refill Prov:LEANNE DOWNING MD 07/31/17 Trazodone Hcl (TRAZODONE HCL) 100 Mg Tablet, 100 MG PO QHS Y for insomnia, #30 TAB 6 Refills Prov:LEANNE DOWNING MD 07/30/17 Pantoprazole Sodium (PANTOPRAZOLE SODIUM) 40 Mg Tablet.dr, 40 MG PO BID, #180 TAB.SR 3 Refills Prov:LEANNE DOWNING MD 03/29/17 Carvedilol (CARVEDILOL) 3.125 Mg Tab, 1 TAB PO BID, #180 TAB 3 Refills TAKE 1 TABLET BY MOUTH TWICE A DAY Prov:LEANNE DOWNING MD 01/22/17 Gabapentin (GABAPENTIN) 300 Mg Capsule, 300 MG PO TID, #120 CAPSULE 6 Refills Prov:ROBB RUSH JR, MD 11/24/16 Simvastatin (SIMVASTATIN) 20 Mg Tablet, 1 TAB PO HS, #60 TAB 6 Refills Prov:LEANNE DOWNING MD 07/20/16 Oxygen (OXYGEN) Inha, 4-5 L INH q daily, #4 L Oxygen at 4-5L continuous and may increase to 6L with activity Prov:AURE MULLINS MD 12/29/15 Reported Medications Duloxetine HCl (Duloxetine HCl) 60 Mg Capsule.dr, 1 TAB PO BID 08/31/17 Fluticasone/Salmeterol (ADVAIR HFA 115-21 MCG INHALER) 12 Gm Hfa.aer.ad, 2 PUFF IH BID 04/09/17 Aspirin (ASPIR 81) 81 Mg Tablet.dr, 81 MG PO QDAY, TAB 03/15/17 Tiotropium [place] (SPIRIVA) 18 Mcg/Cap Inh, 18 MCG INH DAILY, INH 12/28/15 Multivitamin (MULTI VITAMIN DAILY) 1 Each Tablet, 1 EACH PO DAILY 07/17/14 Discontinued Scripts Duloxetine Hcl (CYMBALTA) 60 Mg Capsule.dr, 60 MG PO QDAY, #90 CAP 1 Refill Prov:LEANNE DOWNING MD 08/06/17 Allergies: Coded Allergies: cyclobenzaprine (Verified Adverse Reaction, Intermediate, felt very sleepy and confused. , 08/31/17) Patient History: FH: SD (myocardial infarction) MOTHER BROTHER OR SISTER FH: blindness FATHER FH: stroke MOTHER FHx: heart disease MOTHER Rectal cancer BROTHER OR SISTER Hx Smoking: Yes (SMOKED 1 PPD FOR 30 YEARS, QUIT 2002) Smoking Status: Former Smoker Exposure to Second Hand Smoke?: No Caffeine Intake: Coffee, Tea Caffeine/Cups Per Day: 3 CUPS COFFEE, 2 GLASSES TEA PER DAY Hx Alcohol Use: Yes Hx Substance Use Disorder: No Social Drug Use: Never Review of Systems Constitutional: No Fever, No Chills, No Night Sweats Neurological: No Syncope, No Confusion, No Weakness Eyes: No Vision Change, No Loss of Vision ENT: No Hearing Loss Cardiovascular: Chest Pain, No Palpitations, No Orthostatic Hypotension Respiratory: Shortness of Breath, Cough, No Wheezing Gastrointestinal: No Nausea, No Vomiting, No Diarrhea, No Dysphagia, No Hematemesis, No Hematochezia, No Melena, No Abdominal Pain Genitourinary: No Dysuria, No Hematuria, No Urinary Incontinence Musculoskeletal: Pain Psychiatric: Depression, Anxiety Exam Vital Signs Vital Signs Date Time Temp Pulse Resp B/P (MAP) Pulse Ox O2 Delivery O2 Flow Rate FiO2 09/02/17 18:20 98.2 105 24 115/76 (89) 89 Oxy Mask 11.0 General Appearance: Alert, Awake, Other (appears in significant pain) Neuro: No Gross deficits Eyes: PERRLA ENT: Oropharynx Clear Neck: No Masses Cardiovascular: No Edema, Other (Tachycardic regular distant tones) Respiratory: Other (diminished breath sounds at both bases with expiratory wheezes/prolonged expiratory phase) Chest: No Tenderness, Other (no rashes) GI: Abd Soft and Non-Tender : No CVA Tenderness Lymph: No Adenopathy Extremities: Warm, Perfused Integumentary: Other (no rashes noted) Psych: Alert & Oriented X3 Medical Decision Making Data Points Result Diagram: 09/02/17 1550 09/02/17 1550 EKG / Imaging Imaging PATIENT NAME: Jaswinder Hall : 1945 MR: [id number] V: [id number] EXAM DATE: ORDERING PHYSICIAN: MIRNA MARK TECHNOLOGIST: Location: [facility] Patient: Jaswinder Hall : 1945 Visit/Account:[id number] Date of Sevice: 09/02/2017 EXAMINATION: CT CHEST PULMONARY ANGIOGRAM COMPARISON: Chest x-ray same day and earlier. Chest CT 11/17/2016. HISTORY: Pleuritic chest pain. PROCEDURE: Pulmonary arterial phase imaging of the chest with 75 mL intravenous Isovue 370. Reconstruction of the source data set includes multiplanar 2D in the sagittal and coronal planes, and 3D reconstructed coronal slab MIP series. One of the following dose optimization techniques was utilized in the performance of this exam: Automated exposure control; adjustment of the mA and/ or kV according to the patient's size; or use of an iterative reconstruction technique. Specific details can be referenced in the facility's radiology CT exam operational policy. FINDINGS: Pulmonary vasculature: There is good contrast opacification of the pulmonary arterial system. Mildly dilated 3.4 cm main pulmonary artery is unchanged. No pulmonary artery filling defect. Cardiac and mediastinum: Cardiac chamber size is normal. Mild coronary calcifications. No thoracic aortic aneurysm or dissection. Numerous mildly prominent mediastinal and hilar lymph nodes. Lungs and pleura: Left lower lobe and to lesser extent lingula chronic consolidation, small pleural effusion, and pleural thickening is minimally changed since 2017. No definite new or enlarging consolidation is identified on the left. New moderate-sized simple appearing pleural effusion on the right with extensive consolidation in the right lower lobe. No pneumothorax or definite evidence of edema. Moderate emphysema as before. No new or enlarging nodule. Airways: No central airway occlusion. Scattered air bronchograms throughout the right lower lobe consolidation. Upper abdomen: No evidence of acute disease within the visualized upper abdomen. Osseous structures: No acute changes. Spinal cord stimulator leads as before. IMPRESSION: 1. No pulmonary embolism. 2. Right lower lobe extensive consolidation is most suspicious for pneumonia. 3. Moderate right pleural effusion. 4. Small left pleural effusion and lower lung chronic consolidation/atelectasis is minimally changed since 08/08/2016. 5. Emphysema. Report Dictated By: Oracio Arriola MD at 09/02/2017 5:14 PM Report E-Signed By: Oracio Arriola MD at 09/02/2017 5:26 PM WSN:[id number] Assessment and Plan Problems: (1) Pneumonia Status: Acute Assessment & Plan: He has a rather dense infiltrate with small-moderate pleural effusion at right base. Will admit for IV antibiotics, supplemental oxygen/respiratory treatments, pain control. Cultures have been obtained in the ER. If the pleural effusion enlarges it may need thoracentesis, but at this point it may be difficult to tap without possible complications. Watch closely. (2) Pleuritic chest pain Status: Acute Assessment & Plan: Will try some Toradol along with IV morphine to see if he can get some relief. Will continue his usual oral morphine as well. (3) COPD (chronic obstructive pulmonary disease) Status: Chronic Assessment & Plan: Will continue oxygen supplementation, Advair, albuterol. Will give a pulse of steroids as well. (4) Coronary artery disease Status: Chronic Assessment & Plan: Will continue his aspirin, statin, beta radha. (5) Chronic back pain Status: Chronic Assessment & Plan: Will continue his usual MS Contin 60mg PO BID, gabapentin, duloxetine. Copies to: LEANNE DOWNING MD Venous Thromboembolism Antithrombotics Is Pt On Any Antithrombotics?: Yes (LOvenox) Exam Sepsis Risk: No Definite Risk Problem Qualifiers (1) Pneumonia: Pneumonia type: due to unspecified organism Laterality: right Lung location : upper lobe of lung Qualified Codes: J18.1 - Lobar pneumonia, unspecified organism AURE MULLINS MD Sep 02, 2017 18:58
[2017-09-02] MEDS: MORPHINE 4 MG/ML SDV IVP PRN ×4 (19:44→23:05)
[2017-09-02] MEDS: methylPREDNIS SUCC 125 MG/2ML IVP SCH (19:44)
[2017-09-02] MEDS: NS(*) 0.9% 1000 ML BAG 1,000 ML IV PRN (19:45)
[2017-09-02] MEDS: DOXYCYCLINE HYCL 100 MG VIAL 100 MG in NS(*) 0.9% 250 ML BAG 250 ML IV SCH (19:49)
[2017-09-02] MEDS: cefTRIAXone(*) 1 GM VIAL 1 GM in NS(*) 0.9% 100 ML ADDVANT BAG 100 ML IVPB SCH (19:50)
[2017-09-02 20:31] VITALS: BP 110/64
[2017-09-02] MEDS: CARVEDILOL 3.125 MG TAB PO SCH (20:33)
[2017-09-02] MEDS: MORPHINE 60 MG PO SCH (20:33)
[2017-09-02] MEDS: SIMVASTATIN 20 MG TAB PO SCH (20:33)
[2017-09-02] MEDS: PANTOPRAZOLE SOD 40 MG TABEC PO SCH (20:33)
[2017-09-02] MEDS: guaiFENesin 600 MG TABCR PO SCH (20:33)
[2017-09-02] MEDS: GABAPENTIN 300 MG CAP PO SCH (20:33)
[2017-09-02] MEDS: DULoxetine HCL 30 MG CAPCR PO SCH (20:33)
[2017-09-03] MEDS: MORPHINE 4 MG/ML SDV IVP PRN ×8 (00:01→07:09)
[2017-09-03] MEDS: methylPREDNIS SUCC 125 MG/2ML IVP SCH ×3 (02:06→19:40)
[2017-09-03 03:04] VITALS: BP 116/71
[2017-09-03 05:42] LABS: PLATELET COUNT, AUTOMATED 371 K/uL (150-450)
[2017-09-03] MEDS: SALMETEROL/FLUTIC 100/50 1 INH INH SCH ×2 (05:45→16:49)
[2017-09-03] MEDS: TIOTROPIUM BROM INH 18 MCG/CAP INH SCH (05:45)
[2017-09-03] MEDS: ALBUTEROL 2.5 MG/3 ML NEB NEB PRN (05:54)
[2017-09-03 07:21] VITALS: BP 125/64
--- NOTE | 2017-09-03 07:41 | RADIOLOGY IMAGING REPORT ---
FACILITY: [facility] PATIENT NAME: Jaswinder Hall : 1945 MR: [id number] V: [id number] EXAM DATE: ORDERING PHYSICIAN: AURE MULLINS TECHNOLOGIST: Location: [facility] [place] Patient: Jaswinder Hall : 1945 Visit/Account:[id number] Date of Sevice: 09/03/2017 PORTABLE CHEST: Indication: Pneumonia and pleural effusion. Technique: A single frontal film was obtained. Comparison: 09/02/2017 Skeletal and soft tissue structures: Intact and unchanged. Heart and mediastinum: Stable. Lung asencio: There is increased parenchymal consolidation in the right lower lobe, compatible with pn eumonia. The left lung is unchanged. Pleural spaces: There are persistent bilateral effusions, right larger than left. Impression: There is increased parenchymal consolidation in the right lower lobe, compatible with pne umonia. Report Dictated By: Allen Burnette MD at 09/03/2017 7:35 AM Report E-Signed By: Allen Burnette MD at 09/03/2017 7:36 AM WSN:[id number]
[2017-09-03] MEDS: DOXYCYCLINE HYCL 100 MG VIAL 100 MG in NS(*) 0.9% 250 ML BAG 250 ML IV SCH ×2 (07:44→20:49)
--- NOTE | 2017-09-03 08:26 | Hospitalist Progress Note ---
Subjective Progress Notes Subjective The patient continues to have significant pleuritic chest pain. Physical Exam Vital Signs Date Time Temp Pulse Resp B/P (MAP) Pulse Ox O2 Delivery O2 Flow Rate FiO2 09/03/17 07:21 97.6 85 20 125/64 (84) 88 Aquinox 12.0 General Appearance: Alert, Awake, Other (In obvious distress due to chest pain with each breath. Diaphoretic.) Neuro: No Gross deficits Eyes: PERRLA Cardiovascular: Regular Rate and Rhythm Respiratory: Other (Decreased BS throughout. Expiratory wheezes heard anteriorly on the right.) GI: Soft and Non-Tender (BS+) Extremities: Warm, Pulses (Full and equal.), Perfused Integumentary: Skin Intact without Lesion / Mass Psych: Appropriate Mood & Affect Result Diagram: 09/03/1751409/03/17514 Assessment and Plan Problems: (1) Pneumonia Status: Acute Assessment & Plan: He has a rather dense infiltrate with small-moderate pleural effusion at right base. Will admit for IV antibiotics, supplemental oxygen/respiratory treatments, pain control. Cultures have been obtained in the ER. If the pleural effusion enlarges it may need thoracentesis, but at this point it may be difficult to tap without possible complications. Watch closely. (2) Pleuritic chest pain Status: Acute Assessment & Plan: Will try some Toradol along with IV morphine to see if he can get some relief. Will continue his usual oral morphine as well. Will add Ativan to see if this might augment his pain control. (3) COPD (chronic obstructive pulmonary disease) Status: Chronic Assessment & Plan: Will continue oxygen supplementation, Advair, albuterol. Will give a pulse of steroids as well. (4) Coronary artery disease Status: Chronic Assessment & Plan: Will continue his aspirin, statin, beta radha. (5) Chronic back pain Status: Chronic Assessment & Plan: Will continue his usual MS Contin 60mg PO BID, gabapentin, duloxetine. Time Spent on Plan of Care: < 30 min Exam Sepsis Risk: No Definite Risk Problem Qualifiers (1) Pneumonia: Pneumonia type: due to unspecified organism Laterality: right Lung location : upper lobe of lung Qualified Codes: J18.1 - Lobar pneumonia, unspecified organism SIMA MULLINS MD Sep 03, 2017 08:25
[2017-09-03] MEDS: ENOXAPARIN 40 MG/0.4ML SYR SC SCH (09:13)
[2017-09-03] MEDS: guaiFENesin 600 MG TABCR PO SCH ×2 (09:14→20:45)
[2017-09-03] MEDS: MORPHINE 60 MG PO SCH ×2 (09:14→20:45)
[2017-09-03] MEDS: GABAPENTIN 300 MG CAP PO SCH ×3 (09:14→20:45)
[2017-09-03] MEDS: ASPIRIN 81 MG ENTERIC COATED PO SCH (09:14)
[2017-09-03] MEDS: DULoxetine HCL 30 MG CAPCR PO SCH ×2 (09:14→20:45)
[2017-09-03] MEDS: ALLOPURINOL 100 MG TAB PO SCH (09:14)
[2017-09-03] MEDS: CARVEDILOL 3.125 MG TAB PO SCH ×2 (09:14→20:45)
[2017-09-03] MEDS: PANTOPRAZOLE SOD 40 MG TABEC PO SCH ×2 (09:14→20:45)
[2017-09-03] MEDS: buPROPion SR 150 MG TABCR PO SCH (09:14)
[2017-09-03] MEDS: LORazepam 2 MG/ML VIAL IVP PRN ×2 (09:15→14:28)
[2017-09-03] MEDS: KETOROLAC 30 MG/ML VIAL IVP PRN ×3 (09:16→20:46)
[2017-09-03 10:07] VITALS: Ht 172.7 cm; Wt 86.6 kg
[2017-09-03 10:52] VITALS: BP 107/57
[2017-09-03] MEDS: NS(*) 0.9% 1000 ML BAG 1,000 ML IV PRN (12:57)
[2017-09-03 15:16] VITALS: BP 116/69
[2017-09-03] MEDS: cefTRIAXone(*) 1 GM VIAL 1 GM in NS(*) 0.9% 100 ML ADDVANT BAG 100 ML IVPB SCH (19:40)
[2017-09-03 19:54] VITALS: BP 118/63
[2017-09-03] MEDS: SIMVASTATIN 20 MG TAB PO SCH (21:33)
[2017-09-04] MEDS: methylPREDNIS SUCC 125 MG/2ML IVP SCH (02:40)
[2017-09-04 02:41] VITALS: BP 121/60
[2017-09-04] MEDS: KETOROLAC 30 MG/ML VIAL IVP PRN ×4 (02:41→21:31)
[2017-09-04] MEDS: MORPHINE 4 MG/ML SDV IVP PRN (04:20)
[2017-09-04] MEDS: NS(*) 0.9% 1000 ML BAG 1,000 ML IV PRN (05:06)
[2017-09-04] MEDS: SALMETEROL/FLUTIC 100/50 1 INH INH SCH ×2 (05:51→17:05)
[2017-09-04] MEDS: TIOTROPIUM BROM INH 18 MCG/CAP INH SCH (05:51)
[2017-09-04 06:07] LABS: PLATELET COUNT, AUTOMATED 357 K/uL (150-450)
[2017-09-04 07:56] VITALS: BP 112/67
[2017-09-04] MEDS: DOXYCYCLINE HYCL 100 MG VIAL 100 MG in NS(*) 0.9% 250 ML BAG 250 ML IV SCH ×2 (08:08→20:27)
[2017-09-04] MEDS: predniSONE 20 MG TAB PO SCH (08:46)
[2017-09-04] MEDS: PANTOPRAZOLE SOD 40 MG TABEC PO SCH ×2 (08:46→20:27)
[2017-09-04] MEDS: ASPIRIN 81 MG ENTERIC COATED PO SCH (08:46)
[2017-09-04] MEDS: ENOXAPARIN 40 MG/0.4ML SYR SC SCH (08:46)
[2017-09-04] MEDS: ALLOPURINOL 100 MG TAB PO SCH (08:46)
[2017-09-04] MEDS: buPROPion SR 150 MG TABCR PO SCH (08:46)
[2017-09-04] MEDS: CARVEDILOL 3.125 MG TAB PO SCH ×2 (08:46→20:28)
[2017-09-04] MEDS: GABAPENTIN 300 MG CAP PO SCH ×3 (08:46→20:28)
[2017-09-04] MEDS: DULoxetine HCL 30 MG CAPCR PO SCH ×2 (08:46→20:27)
[2017-09-04] MEDS: guaiFENesin 600 MG TABCR PO SCH ×2 (08:47→20:28)
[2017-09-04] MEDS: MORPHINE 60 MG PO SCH ×2 (08:47→20:27)
[2017-09-04 10:56] VITALS: BP 129/69
--- NOTE | 2017-09-04 11:48 | Hospitalist Progress Note ---
Subjective Progress Notes Subjective This patient was admitted for pneumonia. He had no acute events overnight. Patient Complains of: Cardiovascular: No: Chest Pain Respiratory: No: Shortness of Breath Physical Exam Vital Signs Date Time Temp Pulse Resp B/P (MAP) Pulse Ox O2 Delivery O2 Flow Rate FiO2 09/04/17 10:56 97.6 78 32 129/69 (89) 93 Nasal Cannula 15.0 Intake and Output 09/05/17 06:59 Intake Total 851 ml Balance 851 ml Intake Oral 480 ml IV Total 371 ml Cardiovascular: Regular Rate and Rhythm Respiratory: Clear to Auscultation Result Diagram: 09/04/17 0540 09/04/17 0540 Assessment and Plan Problems: (1) Pneumonia Status: Acute Assessment & Plan: A CT scan has shown an infiltrate and effusion in the right lung. He is on empiric treatment with ceftriaxone and doxycycline. Blood cultures are pending. (2) Pleuritic chest pain Status: Acute Assessment & Plan: He is receiving Toradol and morphine. (3) COPD (chronic obstructive pulmonary disease) Status: Chronic Assessment & Plan: He is on chronic treatment with Advair and albuterol. He is also receiving oral prednisone. (4) Coronary artery disease Status: Chronic Assessment & Plan: He is on chronic treatment with aspirin and simvastatin. (5) Chronic back pain Status: Chronic Assessment & Plan: He is on chronic treatment with MS Contin 60mg PO BID, gabapentin, duloxetine. Exam Sepsis Risk: Sepsis Risk Problem Qualifiers (1) Pneumonia: Pneumonia type: due to unspecified organism Laterality: right Lung location : upper lobe of lung Qualified Codes: J18.1 - Lobar pneumonia, unspecified organism ISACC MARMOLEJO DO Sep 04, 2017 11:48
[2017-09-04 14:58] VITALS: BP 128/73
[2017-09-04 19:32] VITALS: BP 140/81
[2017-09-04] MEDS: cefTRIAXone(*) 1 GM VIAL 1 GM in NS(*) 0.9% 100 ML ADDVANT BAG 100 ML IVPB SCH (19:32)
[2017-09-04] MEDS: SIMVASTATIN 20 MG TAB PO SCH (20:27)
[2017-09-04] MEDS: ALBUTEROL 2.5 MG/3 ML NEB NEB PRN (20:42)
[2017-09-04] MEDS: LORazepam 2 MG/ML VIAL IVP PRN (21:32)
[2017-09-05] MEDS: traZODone HCL 50 MG TAB PO PRN ×2 (01:04→23:42)
[2017-09-05] MEDS: KETOROLAC 30 MG/ML VIAL IVP PRN ×3 (04:35→19:32)
[2017-09-05 05:54] LABS: PLATELET COUNT, AUTOMATED 366 K/uL (150-450)
[2017-09-05] MEDS: TIOTROPIUM BROM INH 18 MCG/CAP INH SCH (06:17)
[2017-09-05] MEDS: SALMETEROL/FLUTIC 100/50 1 INH INH SCH ×2 (06:17→16:47)
[2017-09-05 08:31] VITALS: BP 129/74
[2017-09-05] MEDS: CARVEDILOL 3.125 MG TAB PO SCH ×2 (08:32→21:04)
[2017-09-05] MEDS: PANTOPRAZOLE SOD 40 MG TABEC PO SCH ×2 (08:32→21:04)
[2017-09-05] MEDS: buPROPion SR 150 MG TABCR PO SCH (08:32)
[2017-09-05] MEDS: predniSONE 20 MG TAB PO SCH (08:32)
[2017-09-05] MEDS: MORPHINE 60 MG PO SCH ×2 (08:32→21:04)
[2017-09-05] MEDS: DULoxetine HCL 30 MG CAPCR PO SCH ×2 (08:32→21:04)
[2017-09-05] MEDS: guaiFENesin 600 MG TABCR PO SCH ×2 (08:32→21:04)
[2017-09-05] MEDS: ALLOPURINOL 100 MG TAB PO SCH (08:32)
[2017-09-05] MEDS: GABAPENTIN 300 MG CAP PO SCH ×3 (08:32→21:04)
[2017-09-05] MEDS: DOXYCYCLINE HYCL 100 MG VIAL 100 MG in NS(*) 0.9% 250 ML BAG 250 ML IV SCH ×2 (08:32→20:39)
[2017-09-05] MEDS: ASPIRIN 81 MG ENTERIC COATED PO SCH (08:32)
[2017-09-05] MEDS: ENOXAPARIN 40 MG/0.4ML SYR SC SCH (08:33)
[2017-09-05 10:55] VITALS: BP 148/78
--- NOTE | 2017-09-05 11:10 | Hospitalist Progress Note ---
Subjective Progress Notes Subjective He reports feeling much improved. Less pain. No fever. Physical Exam Vital Signs Date Time Temp Pulse Resp B/P (MAP) Pulse Ox O2 Delivery O2 Flow Rate FiO2 09/05/17 10:55 97.7 89 32 148/78 (101) 90 Oxy Mask 16.0 09/05/17 05:21 50.0 Intake and Output 09/06/17 06:59 Intake Total 1240 ml Balance 1240 ml Intake Oral 1240 ml # Voids 2 General Appearance: Alert, Awake Cardiovascular: Regular Rate and Rhythm Respiratory: Other (diminished breath sounds with a few rales at right base) Chest: No Tenderness GI: Soft and Non-Tender Extremities: Warm, Perfused Psych: Alert & Oriented X3 Result Diagram: 09/05/1752109/05/17521 Assessment and Plan Problems: (1) Pneumonia Status: Acute Assessment & Plan: CT scan has shown an infiltrate and pleural effusion on the right. He is on empiric treatment with IV ceftriaxone and doxycycline. Blood cultures are negative thus far. Overall, he appears to be improving. He still has fairly high O2 requirement. Will work with incentive spirometry. Will re- check CXR with PA/LAT to see if any complicating factors. (2) Pleuritic chest pain Status: Acute Assessment & Plan: Improved. He is receiving Toradol and morphine. (3) COPD (chronic obstructive pulmonary disease) Status: Chronic Assessment & Plan: He is on chronic treatment with Advair and albuterol. He is also receiving oral prednisone. (4) Coronary artery disease Status: Chronic Assessment & Plan: He is on chronic treatment with aspirin and simvastatin. (5) Chronic back pain Status: Chronic Assessment & Plan: He is on chronic treatment with MS Contin 60mg PO BID, gabapentin, duloxetine. Exam Sepsis Risk: Sepsis Risk Problem Qualifiers (1) Pneumonia: Pneumonia type: due to unspecified organism Laterality: right Lung location : upper lobe of lung Qualified Codes: J18.1 - Lobar pneumonia, unspecified organism AURE MULLINS MD Sep 05, 2017 11:10
--- NOTE | 2017-09-05 11:23 | RADIOLOGY IMAGING REPORT ---
FACILITY: [facility] PATIENT NAME: Jaswinder Hall : 1945 MR: [id number] V: [id number] EXAM DATE: ORDERING PHYSICIAN: AURE MULLINS TECHNOLOGIST: Location: [facility] - [place] Patient: Jaswinder Hall : 1945 Visit/Account:[id number] Date of Sevice: 09/05/2017 Exam type: CHEST PA AND LAT History: Right sided pneumonia/pleural effusion Comparison: September 03, 2017. Findings: The right pleural effusion is slightly increased in size. Airspace consolidation throughout the lung has also increased. This appears particularly dense in the right lung base and patchy in the right mid to upper lung zone. Slight improvement in consolidation in the left lung base. Blunting left costophrenic angle remains unchanged. The cardiac silhouette appears unchanged. Spinal stimulator noted over the thoracic spin e. IMPRESSION: 1. Increasing airspace consolidation throughout the right lung most prominent in the right lung base with slight increase in small right pleural effusion Slight improvement in the airspace consolidation in the left lung base and no interval change in the blunted left costophrenic angle Report Dictated By: Perla Darby MD at 09/05/2017 11:18 AM Report E-Signed By: Perla Darby MD at 09/05/2017 11:20 AM WSN:[email or web address]
[2017-09-05 15:21] VITALS: BP 139/67
[2017-09-05] MEDS: cefTRIAXone(*) 1 GM VIAL 1 GM in NS(*) 0.9% 100 ML ADDVANT BAG 100 ML IVPB SCH (19:31)
[2017-09-05] MEDS: SIMVASTATIN 20 MG TAB PO SCH (21:04)
[2017-09-05 23:50] VITALS: BP 143/81
[2017-09-06] VITALS (23 sets, daily range): BP systolic 113–159; BP diastolic 68–130
[2017-09-06] MEDS: KETOROLAC 30 MG/ML VIAL IVP PRN ×2 (04:24→23:42)
[2017-09-06] MEDS: TIOTROPIUM BROM INH 18 MCG/CAP INH SCH (05:29)
[2017-09-06] MEDS: SALMETEROL/FLUTIC 100/50 1 INH INH SCH ×2 (05:30→18:00)
[2017-09-06 05:50] LABS: PLATELET COUNT, AUTOMATED 375 K/uL (150-450)
[2017-09-06] MEDS ORDERED: IOPAMIDOL 76% 75 ML INFUS BTL 75 ML ONE (07:50)
[2017-09-06] MEDS: DOXYCYCLINE HYCL 100 MG VIAL 100 MG in NS(*) 0.9% 250 ML BAG 250 ML IV SCH ×2 (08:39→19:20)
[2017-09-06] MEDS: predniSONE 20 MG TAB PO SCH (08:39)
[2017-09-06] MEDS: PANTOPRAZOLE SOD 40 MG TABEC PO SCH ×2 (08:40→20:13)
[2017-09-06] MEDS: ASPIRIN 81 MG ENTERIC COATED PO SCH (08:40)
[2017-09-06] MEDS: CARVEDILOL 3.125 MG TAB PO SCH ×2 (08:40→20:14)
[2017-09-06] MEDS: GABAPENTIN 300 MG CAP PO SCH ×3 (08:40→20:14)
[2017-09-06] MEDS: MORPHINE 60 MG PO SCH ×2 (08:40→20:14)
[2017-09-06] MEDS: guaiFENesin 600 MG TABCR PO SCH ×2 (08:40→20:14)
[2017-09-06] MEDS: buPROPion SR 150 MG TABCR PO SCH (08:40)
[2017-09-06] MEDS: ALLOPURINOL 100 MG TAB PO SCH (08:41)
[2017-09-06] MEDS: ENOXAPARIN 40 MG/0.4ML SYR SC SCH (08:41)
[2017-09-06] MEDS: DULoxetine HCL 30 MG CAPCR PO SCH ×2 (09:00→20:14)
--- NOTE | 2017-09-06 10:54 | Hospitalist Progress Note ---
Subjective Progress Notes Subjective The patient states overall he feels better but remains very short of breath. Nursing reports difficulty keeping him adequately oxygenated over night. He was on VapoTherm or BiPAP to keep sats in the 90s. Today he is on a mask with high flow O2 at 15L as well as a nonrebreather at 15L and his sats are in the 80s. Physical Exam Vital Signs Date Time Temp Pulse Resp B/P (MAP) Pulse Ox O2 Delivery O2 Flow Rate FiO2 09/06/17 07:08 97.0 106 20 149/78 (101) 93 09/06/17 05:33 Bi-PAP 70.0 09/05/17 19:30 40.0 Intake and Output 09/07/17 06:59 # Voids 1 General Appearance: Alert, Awake, Other (Increased work of breathing.) Neuro: No Gross deficits Eyes: PERRLA Cardiovascular: Other (Tachy, regular.) Respiratory: Other (L lung with breath sounds throughout. Few rales. R lung with absent BS in base. Some rhonchi in mid and upper R lung field.) GI: Soft and Non-Tender Extremities: Warm, Perfused Psych: Appropriate Mood & Affect Result Diagram: 09/06/1751409/06/1715 Assessment and Plan Problems: (1) Pneumonia Status: Acute Assessment & Plan: On admission, CT scan showed an infiltrate and pleural effusion on the right. He was started on empiric treatment with IV ceftriaxone and doxycycline. Blood cultures are negative thus far. His oxygen requirements have increased overnight. A repeat CT scan is ordered for today. He may need to have thoracentesis to drain his right pleural effusion. He is currently on BiPAP at 100% with saturations in the mid 80s. Surgery has been consulted for possible thoracentesis. Will transfer to ICU for closer monitoring today. (2) Pleuritic chest pain Status: Acute Assessment & Plan: Improved. He is receiving Toradol and morphine. (3) COPD (chronic obstructive pulmonary disease) Status: Chronic Assessment & Plan: He is on chronic treatment with Advair and albuterol. He is also receiving oral prednisone. (4) Coronary artery disease Status: Chronic Assessment & Plan: He is on chronic treatment with aspirin and simvastatin. (5) Chronic back pain Status: Chronic Assessment & Plan: He is on chronic treatment with MS Contin 60mg PO BID, gabapentin, duloxetine. Time Spent on Plan of Care: < 30 min Exam Sepsis Risk: No Definite Risk Problem Qualifiers (1) Pneumonia: Pneumonia type: due to unspecified organism Laterality: right Lung location : upper lobe of lung Qualified Codes: J18.1 - Lobar pneumonia, unspecified organism SIMA MULLINS MD Sep 06, 2017 10:54
--- NOTE | 2017-09-06 13:05 | Post Operative Progress Note ---
Post Operative Progress Note Date: Sep 06, 2017 Time: 13:04 Surgeon: constantin Anesthesia: local Pre-Op Diagnosis: right pleural effusion Post-Op Diagnosis: same Procedure(s): right thoracentesis Specimen Removed:(May be N/A): 950 cc brown serous fluid EARNEST COON MD Sep 06, 2017 13:05
--- NOTE | 2017-09-06 13:07 | General Surgery Consultation ---
History of Present Illness Requesting Physician dr staci cool Reason for Consult right pleural effusion Chief Complaint shortness of breath History of Present Illness 72 yo male with pneumonia and has developed a right pleural effusion. History Home Meds Active Scripts Allopurinol (ALLOPURINOL) 100 Mg Tablet, 1 TAB PO QDAY, #90 TAB 4 Refills TAKE 1 TABLET BY MOUTH EVERY DAY Prov:LEANNE DOWNING MD 08/22/17 Bupropion Hcl (BUPROPION HCL SR) 150 Mg Tablet.er, 1 TAB PO QDAY, #90 TAB 1 Refill Prov:LEANNE DOWNING MD 08/06/17 Oxycodone Hcl/Acetaminophen (OXYCODONE-ACETAMINOPHEN 10-325) 1 Each Tablet, 1 EACH PO TID Y for pain, #90 TAB refill 10/14/2017 Prov:LEANNE DOWNING MD 08/06/17 Morphine Sulfate (MORPHINE SULFATE ER) 60 Mg Tablet.er, 60 MG PO BID, #60 TAB 10/14/2017 Prov:LEANNE DOWNING MD 08/06/17 Tamsulosin Hcl (TAMSULOSIN HCL) 0.4 Mg Cap.er.24h, 2 CAP PO DAILY, #180 CAP 1 Refill Prov:LEANNE DOWNING MD 07/31/17 Trazodone Hcl (TRAZODONE HCL) 100 Mg Tablet, 100 MG PO QHS Y for insomnia, #30 TAB 6 Refills Prov:LEANNE DOWNING MD 07/30/17 Pantoprazole Sodium (PANTOPRAZOLE SODIUM) 40 Mg Tablet.dr, 40 MG PO BID, #180 TAB.SR 3 Refills Prov:LEANNE DOWNING MD 03/29/17 Carvedilol (CARVEDILOL) 3.125 Mg Tab, 1 TAB PO BID, #180 TAB 3 Refills TAKE 1 TABLET BY MOUTH TWICE A DAY Prov:LEANNE DOWNING MD 01/22/17 Gabapentin (GABAPENTIN) 300 Mg Capsule, 300 MG PO TID, #120 CAPSULE 6 Refills Prov:ROBB RUSH JR, MD 11/24/16 Simvastatin (SIMVASTATIN) 20 Mg Tablet, 1 TAB PO HS, #60 TAB 6 Refills Prov:LEANNE DOWNING MD 07/20/16 Oxygen (OXYGEN) Inha, 4-5 L INH q daily, #4 L Oxygen at 4-5L continuous and may increase to 6L with activity Prov:AURE COOL MD 12/29/15 Reported Medications Duloxetine HCl (Duloxetine HCl) 60 Mg Capsule.dr, 1 TAB PO BID 08/31/17 Fluticasone/Salmeterol (ADVAIR HFA 115-21 MCG INHALER) 12 Gm Hfa.aer.ad, 2 PUFF IH BID 04/09/17 Aspirin (ASPIR 81) 81 Mg Tablet.dr, 81 MG PO QDAY, TAB 03/15/17 Tiotropium [place] (SPIRIVA) 18 Mcg/Cap Inh, 18 MCG INH DAILY, INH 12/28/15 Multivitamin (MULTI VITAMIN DAILY) 1 Each Tablet, 1 EACH PO DAILY 07/17/14 Discontinued Scripts Duloxetine Hcl (CYMBALTA) 60 Mg Capsule.dr, 60 MG PO QDAY, #90 CAP 1 Refill Prov:LEANNE DOWNING MD 08/06/17 Allergies: Coded Allergies: cyclobenzaprine (Verified Adverse Reaction, Intermediate, felt very sleepy and confused. , 08/31/17) Family History: FH: ND (myocardial infarction) MOTHER BROTHER OR SISTER FH: blindness FATHER FH: stroke MOTHER FHx: heart disease MOTHER Rectal cancer BROTHER OR SISTER Exam Vital Signs Vital Signs Date Time Temp Pulse Resp B/P (MAP) Pulse Ox O2 Delivery O2 Flow Rate FiO2 09/06/17 11:45 89 22 135/79 (97) 91 Bi-PAP 100.0 09/06/17 11:24 97.0 09/06/17 07:34 15.0 Medical Decision Making Data Points Result Diagram: 09/06/17 0515 09/06/17 0515 Assessment and Plan Problems: (1) Pleural effusion on right Status: Acute Assessment & Plan: will do thoracentesis for improved lung function and analysis Copies to: EARNEST COON MD Venous Thromboembolism Antithrombotics Is Pt On Any Antithrombotics?: Yes (LOvenox) EARNEST COON MD Sep 06, 2017 13:07
--- NOTE | 2017-09-06 13:35 | RADIOLOGY IMAGING REPORT ---
FACILITY: [facility] PATIENT NAME: Jaswinder Hall : 1945 MR: [id number] V: [id number] EXAM DATE: ORDERING PHYSICIAN: AURE MULLINS TECHNOLOGIST: Location: [facility] Patient: Jaswinder Hall : 1945 Visit/Account:[id number] Date of Sevice: 09/06/2017 CHEST W CONTRAST History: right basilar pneumonia/pleural effusion TECHNIQUE: Contiguous axial images were performed through the chest to the level of the adrenal gla nds following the administration of IV contrast. Coronal and sagittal reformatting was also perform ed. Dose Lowering Technique One of the following dose optimization techniques was utilized in the performance of this exam: Autom ated exposure control; adjustment of the mA and/or kV according to the patient's size; or use of an i terative reconstruction technique. Specific details can be referenced in the facility's radiology C T exam operational policy. Contrast: 75 mL Isovue-370 COMPARISON STUDIES: CTA chest September 02, 2017. Lungs / Pleura: There is a at least moderate size right pleural effusion which has increased in siz e when compared the prior study. Extensive consolidation in the right lower lobe appears similar to the prior examination.. Since the prior study there has been development of diffuse septal thickenin g and honeycombing seen throughout the right middle lobe and much of the right upper lobe and within patchy areas of the left upper lobe. Multiple peripheral bulla are again seen throughout the lungs. There is a small posterior layering left pleural effusion with enhancement and calcifications the ad jacent pleura that appears similar to the prior study and airspace consolidation in the left lower lo be and inferior lingula that appears stable Mediastinum/nodes: Mildly prominent mediastinal lymph nodes appear relatively unchanged Heart and vessels: Coronary artery calcifications are present Musculoskeletal / Body wall: There are spondylotic changes in the thoracic spine and spinal stimula tor in place Upper abdomen: Calcified granulomas in the spleen IMPRESSION: At least moderate right-sided pleural effusion has increased in size when compared the prior study. The extensive consolidation right lower lobe appears similar to the prior examination consistent with pneumonia and/or atelectasis Since prior study there is been development of diffuse septal thickening and honeycombing throughout the right middle lobe and much of the right upper lobe and within patchy areas of the left upper lobe . Due to the relatively rapid appearance is likely represents an acute infectious/inflammatory proce ss. Small left pleural effusion with adjacent pleural enhancement and calcifications and airspace consoli dation left lower lobe and inferior lingula appears stable Mediastinal adenopathy appears stable Report Dictated By: Perla Darby MD at 09/06/2017 1:16 PM Report E-Signed By: Perla Darby MD at 09/06/2017 1:31 PM WSN:[email or web address]
--- NOTE | 2017-09-06 13:36 | RADIOLOGY IMAGING REPORT ---
[place] [facility] [place]IENT NAME: Jaswinder Hall : 1945 MR: [id number] V: [id number] EXAM DATE: ORDERING PHYSICIAN: EARNEST COON TECHNOLOGIST: Location: [facility] [place] Patient: Jaswinder Hall : 1945 Visit/Account:[id number] Date of Sevice: 09/06/2017 Exam type: CHEST SINGLE AP History: post thorocentesis Comparison: September 05, 2017. Findings: There has been interval decrease in right pleural effusion which now appears small. No pneumothorax is seen. Chronic blunting left costophrenic angle is unchanged. There is been further increase in t he patchy airspace consolidation throughout both lungs. The cardiac silhouette is unchanged. Spinal stimulator projects over the midthoracic spine IMPRESSION: 1. Interval decrease in size of the right pleural effusion which now appears small with no pneumotho rax Chronic blunting left costophrenic angle unchanged Patchy airspace consolidation throughout the lungs has advanced worrisome for multifocal pneumonia Report Dictated By: Perla Darby MD at 09/06/2017 1:31 PM Report E-Signed By: Perla Darby MD at 09/06/2017 1:33 PM WSN:[email or web address]
[2017-09-06] MEDS: IMIPENEM/CILASTA(*) 500MG VIAL 500 MG in NS(*) 0.9% 100 ML BAG 100 ML IVPB SCH ×2 (18:02→23:26)
[2017-09-06] MEDS ORDERED: SALINE 0.65% NAS SPR 44 ML BTL PRN (18:15)
[2017-09-06] MEDS: SIMVASTATIN 20 MG TAB PO SCH (20:14)
[2017-09-06] MEDS: ALBUTEROL 2.5 MG/3 ML NEB NEB PRN (21:06)
[2017-09-06] MEDS: LORazepam 2 MG/ML VIAL IVP PRN (23:43)
[2017-09-07] VITALS (23 sets, daily range): BP systolic 127–180; BP diastolic 34–115
[2017-09-07 05:12] LABS: PLATELET COUNT, AUTOMATED 339 K/uL (150-450)
[2017-09-07] MEDS: IMIPENEM/CILASTA(*) 500MG VIAL 500 MG in NS(*) 0.9% 100 ML BAG 100 ML IVPB SCH ×4 (05:22→23:23)
[2017-09-07] MEDS: TIOTROPIUM BROM INH 18 MCG/CAP INH SCH (05:43)
[2017-09-07] MEDS: SALMETEROL/FLUTIC 100/50 1 INH INH SCH ×2 (05:43→17:00)
[2017-09-07] MEDS: DOXYCYCLINE HYCL 100 MG VIAL 100 MG in NS(*) 0.9% 250 ML BAG 250 ML IV SCH ×2 (08:31→20:35)
--- NOTE | 2017-09-07 09:25 | SLP BEDSIDE SWALLOW EVALUATION ---
DYSPHAGIA telephone cleaner: Tenisha Murphy MS, CCC-SHEET METAL INSTALLER Type of Assessment: Dysphagia Evaluation Patient: Jaswinder Hall : 1945, 72yrs Evaluation Date: 09/07/2017 BACKGROUND The patient is a 72yo old male admitted to [facility] following ER visit on 09/02 w/ complaints of sharp, R sided chest pain and SOB. CXR was significant for dense infiltrate with small-moderate pleural effusion at right base. Thoracentesis was completed on 09/06 w/ 950 cc of brown serous fluid removed. An ST swallow evaluation was ordered to further evaluate swallow structure and function and make appropriate diet recommendations 2/2 hx of dysphagia, pneumonia diagnosis, and nursing reports of significant coughing w/ thin liquids. Of note, pt w/ hx of MBS in 2015 and 2016, with significant increase in severity noted over time. No oropharyngeal dysphagia, penetration, or aspiration was witnessed during the study in 2015. Approximately 1 year later, pt presented with moderately severe neurologic dysphagia including lingual pumping, delayed swallow initation, and reduced airway protection with immediate aspiration of thin liquids. Improvement was noted w/ nectar thick liquids, w/ penetration observed but no aspiration. Primary Medical Diagnosis: pneumonia. Medical hx: COPD, esophageal spasms, erosive esophagus, heart disease. Pain Scale (0-10): Patient w/ no reports of pain. LOC / Participation: alert, cooperative, high anxiety 2/2 breathing difficulties. Follows instructions: yes, no difficulty. Orientation: A&O x4. Functional Communication Deficits impact swallow function/safety, or response to therapy: no; adequate cognitive communicative skills to comprehend and execute safe swallow strategies. Pt may benefit from intermittent reminders for aspiration precautions if cognitive overload is observed 2/2 heightened anxiety. VOICE Vocal Deficits: WFL. DYSPHAGIA Sialorrhea: No Xerostomia: Yes Supplemental Oxygen Use: Yes. Nonrebreather at 15L. Oxygen Saturation: 81-93%. Highly variable throughout assessment procedures. No increased irregularity noted w/ PO intake. Respiratory Rate: 18-39. Highly variable throughout assessment procedures. No increased irregularity noted w/ PO intake. COPD Dx: Yes Pain with Swallow: Denies Oropharyngeal Structure and Function: Oromotor exam was unremarkable w/ adequate strength, ROM, and coordination of all oral musculature. Patient w/ all natural teeth, but reported suspicion that theyre all about to fall out. I was supposed to see a dentist before all of this went down. Pt able to elicit strong protective cough when prompted. However, cough was notably thick and wet. Hyolaryngeal elevation and excursion was mildly delayed, with mild to moderately diminished ROM to palpation. Administered PO trials of ice chips, thin liquids via tsp, nectar thick liquids via tsp, cup sip, and straw, soft solids, mixed solids, and regular solids. Single ice chips were administered via tsp, and tolerated w/ out difficulty. Advancing to thin liquids, pt demonstrated immediate cough w/ tsp presentation across 3/3 attempts. Pt also indicated perception that material was going down the wrong way. [place] thick liquids were subsequently administered via tsp, advancing to cup sip and straw sip. No overt s/sx of aspiration observed. Pt demonstrated notable difficulty coordinating respiration/mastication/ deglutition during trials of solid textures, w/ tendency to hold material in oral cavity while focusing on inhalation. Mastication was somewhat prolonged d/ t to this behavior, particularly with dry, crunchy consistencies. Pt demonstrated appropriate bolus formation, a-p transit, and no oral residue across solid trials. All solids (soft, mixed, regular) were tolerated w/ no overt s/sx of aspiration. Pt was encouraged to avoid problematic foods if increased SOB or fatigue was observed 2/2 difficulty w/ mastication. Respiratory/Swallow Coordination: Very poor coordination. Difficulty ceasing breathing pattern to initiate pharyngeal swallow. Difficulty w/ respiration during mastication of solid textures. Difficulties appeared to be exacerbated by high levels of anxiety and strong desire to focus on breathing and request information re: O2 saturation levels.. ST ASSESSMENT SUMMARY Recommendations: Diet: regular solids, nectar thick liquids, single ice chips OK. Medications: pills whole, one at a time; pair w/ nectar thick liquid or puree per pt preference. Compensatory strategies: upright positioning during PO intake, upright positioning 45 min after PO intake, regular oral care, limit distractions during meals, one bite/sip at a time, provide ample time to participate in meals , take rest breaks for respiration. Supervision during PO intake: monitor respiration. MBS may be warranted following stabilization in general health status, respiratory status, and anxiety. Pt reports that he was scheduled to undergo esophageal dilation on 09/06; however, procedure was cancelled d/t medical instability. Pt w/ hx of esophageal stricture and repeated balloon dilation. Pt also w/ hx of MBS x2. Please refer to EMR for details. Aspiration Risk: moderately increased 2nd compromised respiratory status, overt s/sx of aspiration with thin liquids, hx of esophageal dysphagia. Speech Therapy Need ST will continue to analyze oropharyngeal swallow status and make appropriate diet advancement recommendations. ST will also continue to provide educational information re: compensatory strategies to minimize risk for aspiration pneumonia and promote safe, efficient tolerance of least restrictive diet. PLAN OF CARE Short Term Goals 1. Patient and caregivers will receive ongoing education re: safe swallow precautions, diet modification recommendations, and compensatory techniques, and will provide verbal/visual demonstration of comprehension with 100% accuracy. 2. The patient will participate in food/liquid trials with ST to advance diet as indicated for safe oral intake. Chcf Goals 1. The patient will safely and efficiently tolerate regular diet and thin liquids with independent implementation of safe swallow strategies and minimized s/s of dysphagia. Rehabilitation Prognosis: Good. Strong family support. Good cognition. Thank you for this referral. Tenisha Murphy M.S., CCC-SHEET METAL INSTALLER Speech Therapist Physician Signature Date [*] MTDD
[2017-09-07] MEDS: predniSONE 20 MG TAB PO SCH (09:45)
[2017-09-07] MEDS: ASPIRIN 81 MG ENTERIC COATED PO SCH (09:45)
[2017-09-07] MEDS: PANTOPRAZOLE SOD 40 MG TABEC PO SCH ×2 (09:45→20:36)
[2017-09-07] MEDS: guaiFENesin 600 MG TABCR PO SCH ×2 (09:45→20:36)
[2017-09-07] MEDS: CARVEDILOL 3.125 MG TAB PO SCH ×2 (09:45→20:35)
[2017-09-07] MEDS: DULoxetine HCL 30 MG CAPCR PO SCH ×2 (09:45→20:36)
[2017-09-07] MEDS: GABAPENTIN 300 MG CAP PO SCH ×3 (09:45→20:36)
[2017-09-07] MEDS: MORPHINE 60 MG PO SCH ×2 (09:45→20:36)
[2017-09-07] MEDS: ALLOPURINOL 100 MG TAB PO SCH (09:46)
[2017-09-07] MEDS: ENOXAPARIN 40 MG/0.4ML SYR SC SCH (09:46)
[2017-09-07] MEDS: buPROPion SR 150 MG TABCR PO SCH (09:56)
--- NOTE | 2017-09-07 10:23 | Hospitalist Progress Note ---
Subjective Progress Notes Subjective This patient was admitted for pneumonia. He was transferred to the ICU yesterday secondary to worsening hypoxia. Patient Complains of: Cardiovascular: No: Chest Pain Respiratory: Shortness of Breath Physical Exam Vital Signs Date Time Temp Pulse Resp B/P (MAP) Pulse Ox O2 Delivery O2 Flow Rate FiO2 09/07/17 08:00 94 09/07/17 07:10 90 Non-Rebreather 15.0 09/07/17 06:00 97.4 21 162/83 (109) 09/07/17 03:00 75.0 Neuro: No Gross deficits Eyes: PERRLA Cardiovascular: Regular Rate and Rhythm Respiratory: Other (Bilateral rhonchi.) Result Diagram: 09/07/17 0505 09/07/17 0505 Imaging Chest x-ray reviewed. Assessment and Plan Problems: (1) Pneumonia Status: Acute Assessment & Plan: A CT scan bilateral infiltrates and an effusion on the right. He was started on empiric treatment with IV ceftriaxone and doxycycline. Blood cultures have been negative. His antibiotics were changed to Primaxin and doxycycline yesterday. (2) ARDS (adult respiratory distress syndrome) Assessment & Plan: He has had worsening oxygen requirements over the last 24hrs. He has not tolerated BiPAP or Vapotherm. He is currently on 15L by both nasal canula and oxy mask. He is on steroids. (3) COPD (chronic obstructive pulmonary disease) Status: Chronic Assessment & Plan: He is on chronic treatment with Advair and albuterol. He is also receiving oral prednisone. (4) Coronary artery disease Status: Chronic Assessment & Plan: He is on chronic treatment with aspirin and simvastatin. (5) Chronic back pain Status: Chronic Assessment & Plan: He is on chronic treatment with MS Contin 60mg PO BID, gabapentin, duloxetine. Exam Sepsis Risk: Sepsis Risk Problem Qualifiers (1) Pneumonia: Pneumonia type: due to unspecified organism Laterality: right Lung location : upper lobe of lung Qualified Codes: J18.1 - Lobar pneumonia, unspecified organism ISACC MARMOLEJO DO Sep 07, 2017 10:23
--- NOTE | 2017-09-07 10:56 | Medical Nutrition Therapy ---
Nutrition Anthropometrics Height (Inches): 68.00 Height (Calculated Centimeters: 172.221068 Weight (Pounds): 203 Weight (Calculated Kilograms): 92.334 Ezekiel Nutrition Score: Adequate Ezekiel Nutrition Risk Score: 18 Dietary Referral Nutrition Risk Factors: Nutrition Risk Comment: Physical Findings Physical Appearance: Obese BMI 30-39 Skin Appearance Skin Appearance: Edema Edema Location Modifier: Both Edema Location: Type of Edema: Degree of Edema: Gastrointestinal Symptoms GI Symtoms: Tube Present: Bowel Sounds: Recent Bowel Pattern: Stool Characteristics: Nutritional Diagnosis Nutritional Risk Acuity 2: Swallowing Problem Nutritional Risk Acuity 3: COPD Unstable Nutritional Risk Acuity 4: Good Appetite Past Medical History: COPD, chronic back pain, GERD, BPH, HTN, CAD, depression, gout, pneumonia, anemia, bilateral groin pain, testical pain Nutritional Acuity: 2-Moderate Nutrition Etiology: Physiological Causes Nutrition Problem/Etiology/Sym: Unintended weight gain related to physiological causes as evidence by 13lb weight gain since admission. Energy Requirement: 1892 (Meier Benedic adj kcal with BMI >27.5) Protein Requirement: 92 (1g/kg) Fluid Requirement: 1892 (1ml/kcal) Diet Type: Diet as Tolerated IMMANUEL/REG, Thickened Liquid (nectar thicken recommended by speech) Nutrition Intervention: Cont diet as ordered, Encourage intake Diet Comment To RSA: ADD PROTEIN PWDER TO APPROPRIATE MEALS Nutrition Monitoring & Eval Nutrition Goals: Eat 75-100% Meal RD Patient Assessment Time: [address] Assessment Type: RD Assessment Patient Nutrition Acuity: 2-Moderate Follow Up Date: Sep 11, 2017 Nutritional Comment: 09/03 Pt admitted for chest pain and shortness of breath. Pt has PMHx significant for COPD, chronic back pain. Pt is on IMMANUEL/REG diet with 50% oral intake. Alb (2.8) and elevated random blood glucose (141). Continue to monitor pt progress, labs and encourage intake. MT 09/07 Pt continues on regular diet with 100% oral intake. Pt states that he does have a hard time swallowing liquids. Pt was observed by speech, they had recommended nectar thicken liquids. Pt has had a unintentional wt gain of 13#. Possible wt gain could be caused by fluid retention. Continue to monitor wt. Pt H/H has decreased, along with alb (2.1) and total protein (5.2). Add protein powered to appropriate foods, to help increase alb levels. Blood glucose has stabilized. Continue to monitor pt clinical progress, wt, labs and encourage intake. HARSH MOSQUEDA Sep 07, 2017 10:32
[2017-09-07] MEDS: KETOROLAC 30 MG/ML VIAL IVP PRN (17:19)
[2017-09-07] MEDS: SIMVASTATIN 20 MG TAB PO SCH (20:35)
[2017-09-08] VITALS (15 sets, daily range): BP systolic 130–172; BP diastolic 69–95
[2017-09-08 05:14] LABS: PLATELET COUNT, AUTOMATED 374 K/uL (150-450)
[2017-09-08] MEDS: SALMETEROL/FLUTIC 100/50 1 INH INH SCH ×2 (05:44→16:47)
[2017-09-08] MEDS: TIOTROPIUM BROM INH 18 MCG/CAP INH SCH (05:44)
[2017-09-08] MEDS: IMIPENEM/CILASTA(*) 500MG VIAL 500 MG in NS(*) 0.9% 100 ML BAG 100 ML IVPB SCH ×3 (05:52→17:46)
--- NOTE | 2017-09-08 06:14 | RADIOLOGY IMAGING REPORT ---
FACILITY: [facility] - [place] PATIENT NAME: Jaswinder Hall : 1945 MR: [id number] V: [id number] EXAM DATE: ORDERING PHYSICIAN: ISACC MARMOLEJO TECHNOLOGIST: [place] [facility] [place] Patient: Jaswinder Hall : 1945 Visit/Account:[id number] Date of Sevice: 09/08/2017 CHEST SINGLE AP 09/08/2017 05:48 hours. HISTORY: Pneumonia. Follow-up. COMPARISON: 09/06/2017 and studies dating to 10/27/2005. TECHNIQUE: Portable AP view of the chest. FINDINGS: Tubes/lines/hardware: There are external chest leads. There is a spinal stimulator. Lead terminates a t T7. Pulmonary: No change in the bilateral airspace opacities. Small right pleural effusion has increased in size. Small left pleural effusion is stable. No pneumothorax. Cardiomediastinal: Cardiac and mediastinal silhouettes are within normal limits. There is mild aortic calcification. Bones/soft tissues: No acute osseous abnormality. The visible abdomen is normal. IMPRESSION: 1. No change in the bilateral airspace opacities or of the small left pleural effusion. 2. Interval increase in size of the small right pleural effusion. Report Dictated By: Akua Navarro at 09/08/2017 6:09 AM Report E-Signed By: Akua Navarro at 09/08/2017 6:10 AM WSN:[id number]
[2017-09-08] MEDS ORDERED: FUROSEMIDE 40 MG/4 ML VIAL IVP ONE (07:50)
[2017-09-08] MEDS: LORazepam 2 MG/ML VIAL IVP PRN (08:13)
[2017-09-08] MEDS: DOXYCYCLINE HYCL 100 MG VIAL 100 MG in NS(*) 0.9% 250 ML BAG 250 ML IV SCH ×2 (08:15→19:38)
--- NOTE | 2017-09-08 08:23 | Hospitalist Progress Note ---
Subjective Progress Notes Subjective He reports continued SOB. He feels like the pleural effusion is coming back. Staff reports desaturations with any ambulation and he is just barely maintaining saturations at rest with NC and mask. He is refusing BiPAP and Vapotherm. Physical Exam Vital Signs Date Time Temp Pulse Resp B/P (MAP) Pulse Ox O2 Delivery O2 Flow Rate FiO2 09/08/17 06:00 90 09/08/17 06:00 25 171/87 (115) 87 High-Flow Nasal Cannula 30.0 09/08/17 03:00 97.2 09/07/17 03:00 75.0 General Appearance: Alert, Awake, No Acute Distress Respiratory: Other (Trace exp wheezes. Decreased BS bilaterally) Extremities: No Edema Result Diagram: 09/08/1745509/08/17455 Imaging CXR - 1. No change in the bilateral airspace opacities or of the small left pleural effusion. 2. Interval increase in size of the small right pleural effusion. Assessment and Plan Problems: (1) Pneumonia Status: Acute Assessment & Plan: A CT scan bilateral infiltrates and an effusion on the right. He had over 900cc drained on 09/08. It appears to be an exudate. No growth from culture. CXR today shows reaccumulation and the patient feels "it coming back". Will ask Surgery to place a chest tube. He was on empiric treatment with IV ceftriaxone and doxycycline. Blood cultures have been negative. His antibiotics were changed to Primaxin and doxycycline on 09/07. (2) ARDS (adult respiratory distress syndrome) Assessment & Plan: He has had worsening oxygen requirements over the last 24hrs. He has not tolerated BiPAP or Vapotherm. He is currently on 15L by both nasal canula and oxy mask. He is on steroids. Will give a dose of Lasix. (3) COPD (chronic obstructive pulmonary disease) Status: Chronic Assessment & Plan: He is on chronic treatment with Advair and albuterol. He is also receiving oral prednisone. (4) Coronary artery disease Status: Chronic Assessment & Plan: He is on chronic treatment with aspirin and simvastatin. (5) Chronic back pain Status: Chronic Assessment & Plan: He is on chronic treatment with MS Contin 60mg PO BID, gabapentin, duloxetine. Exam Sepsis Risk: Sepsis Risk Problem Qualifiers (1) Pneumonia: Pneumonia type: due to unspecified organism Laterality: right Lung location : upper lobe of lung Qualified Codes: J18.1 - Lobar pneumonia, unspecified organism DARYL RING MD Sep 08, 2017 08:23
[2017-09-08] MEDS: MORPHINE 4 MG/ML SDV IVP PRN ×2 (09:14→22:42)
--- NOTE | 2017-09-08 09:16 | General Surgery Progress Note ---
Subjective Progress Notes Subjective Patient with recurrent pleural effusion after thoracentesis two days ago. Worsening hypoxia and SOB. Patient Complains of: Respiratory: Shortness of Breath Physical Exam Vital Signs Date Time Temp Pulse Resp B/P (MAP) Pulse Ox O2 Delivery O2 Flow Rate FiO2 09/08/17 06:00 90 09/08/17 06:00 25 171/87 (115) 87 High-Flow Nasal Cannula 30.0 09/08/17 03:00 97.2 09/07/17 03:00 75.0 General Appearance: Alert, Awake, No Acute Distress Neuro: No Gross deficits Eyes: PERRLA ENT: Moist Mucous Membranes Cardiovascular: Regular Rate and Rhythm Respiratory: Other (Decreased breath sounds right greater than left, + increased work of breathing) Chest: No Masses GI: Soft and Non-Tender Extremities: Soft and Non Tender, Warm Result Diagram: 09/08/17 0456 09/08/17 0456 Monitor Interpretation: Normal Sinus Rhythm Assessment and Plan Problems: (1) Pleural effusion on right Status: Acute Assessment & Plan: Patient with recurrent right pleural effusion and ongoing pneumonia. Will plan to place right chest tube. The procedure was explained to the patient and informed consent was obtained. Sheryl Turner MD Time Spent: > 30 min Exam Sepsis Risk: Sepsis Risk SHERYL TURNER MD Sep 08, 2017 09:16
--- NOTE | 2017-09-08 09:18 | Procedure Note ---
Arthrocentesis Procedure Note Copies to: DARYL RING MD Cardioversion Procedure Note Copies to: DARYL RING MD ART Line Procedure Note Copies to: DARYL RING MD Central Line Procedure Note Copies to: DAYRL RING MD Intubation Procedure Note Copies to: DARYL RING MD Paracentesis Procedure Note Copies to: DARYL RING MD Thoracentesis Procedure Note Copies to: DARYL RING MD Chest Tube Procedure Note Reason for Chest Tube 72 year old male with pneumonia and recurrent right pleural effusion, with associated worsening hypoxia and shortness of breath. Consent Signed: Yes Chest Tube Location: Right Lung Complications: None Anesthesia Used: 1% Lidocaine CC's of Anesthesia: 20 Chest Tube Size Fr.: 24 Chest Tube Suction: Pleura-Vac Chest Tube Secured: 0 Silk Suture Post Procedure Xray Ordered: Yes Comment No complications, ~1000mL of fluid evacuated. Fluid sample sent for analysis. Copies to: DARYL RING MD Ultrasound Note Copies to: DARYL RING MD Additional Procedures Copies to: DARYL RING MD, HEATHER L MD Sep 08, 2017 09:18
--- NOTE | 2017-09-08 09:51 | RADIOLOGY IMAGING REPORT ---
FACILITY: [facility] PATIENT NAME: Jaswinder Hall : 1945 MR: [id number] V: [id number] EXAM DATE: ORDERING PHYSICIAN: JOHN TURNER TECHNOLOGIST: Location: [facility] - [place] Patient: Jaswinder Hall : 1945 Visit/Account:[id number] Date of Sevice: 09/08/2017 CHEST SINGLE AP History: Chest tube placement FINDINGS: Comparison studies: Comparison study same date at 5:48 AM Tubes and Lines: Interval placement of a right sided chest tube which projects over the right lower lung field. Spinal stimulator again noted. Lungs and pleura: Again seen widespread mixed interstitial airspace opacities through both lungs. T he right-sided pleural effusion persists although is slightly decreased in size status post right yamileth st tube placement. No evidence of right-sided pneumothorax. Mediastinum: normal. Cardiac silhouette: Partially obscured. Upper normal limits in size. Osseous structures: Unremarkable for age . IMPRESSION: Status post right chest tube placement there is a slight decrease in the size of the right pleural effusion. Exam otherwise is unchanged. Report Dictated By: Magnus Avina MD at 09/08/2017 9:43 AM Report E-Signed By: Magnus Avina MD at 09/08/2017 9:47 AM WSN:[id number]
[2017-09-08] MEDS: MORPHINE 60 MG PO SCH ×2 (10:50→21:12)
[2017-09-08] MEDS: CARVEDILOL 3.125 MG TAB PO SCH ×2 (10:51→21:12)
[2017-09-08] MEDS: ALLOPURINOL 100 MG TAB PO SCH (10:51)
[2017-09-08] MEDS: DULoxetine HCL 30 MG CAPCR PO SCH ×2 (10:51→21:12)
[2017-09-08] MEDS: buPROPion SR 150 MG TABCR PO SCH (10:51)
[2017-09-08] MEDS: ASPIRIN 81 MG ENTERIC COATED PO SCH (10:51)
[2017-09-08] MEDS: PANTOPRAZOLE SOD 40 MG TABEC PO SCH ×2 (10:51→21:12)
[2017-09-08] MEDS: guaiFENesin 600 MG TABCR PO SCH ×2 (10:51→21:12)
[2017-09-08] MEDS: predniSONE 20 MG TAB PO SCH (10:51)
[2017-09-08] MEDS: ENOXAPARIN 40 MG/0.4ML SYR SC SCH (10:52)
[2017-09-08] MEDS: GABAPENTIN 300 MG CAP PO SCH ×3 (11:06→21:12)
[2017-09-08] MEDS: ACETAMINOPHEN 500 MG TAB PO PRN (17:00)
[2017-09-08] MEDS ORDERED: POLYETHYLENE GLYCOL 17 GM PKT PO PRN (20:55)
[2017-09-08] MEDS ORDERED: MAGNESIUM HYDROXIDE* 30ML UDCP PO PRN (20:55)
[2017-09-08] MEDS ORDERED: BISACODYL 10 MG SUPP PR PRN (20:55)
[2017-09-08] MEDS: DOCUSATE SODIUM 100 MG CAP PO SCH (21:12)
[2017-09-08] MEDS: SIMVASTATIN 20 MG TAB PO SCH (21:12)
[2017-09-08] MEDS ORDERED: NS(*) 0.9% 500 ML BAG 500 ML ONE (21:27)
[2017-09-09] VITALS (9 sets, daily range): BP systolic 101–142; BP diastolic 59–78
[2017-09-09] MEDS: IMIPENEM/CILASTA(*) 500MG VIAL 500 MG in NS(*) 0.9% 100 ML BAG 100 ML IVPB SCH ×4 (00:04→17:59)
[2017-09-09] MEDS: MORPHINE 4 MG/ML SDV IVP PRN ×2 (03:20→06:03)
[2017-09-09 05:32] LABS: PLATELET COUNT, AUTOMATED 405 K/uL (150-450)
[2017-09-09] MEDS: TIOTROPIUM BROM INH 18 MCG/CAP INH SCH (05:55)
[2017-09-09] MEDS: SALMETEROL/FLUTIC 100/50 1 INH INH SCH ×2 (05:55→17:19)
--- NOTE | 2017-09-09 06:20 | RADIOLOGY IMAGING REPORT ---
FACILITY: [facility] PATIENT NAME: Jaswinder Hall : 1945 MR: [id number] V: [id number] EXAM DATE: ORDERING PHYSICIAN: DARYL RING TECHNOLOGIST: Location: [facility] Patient: Jaswinder Hall : 1945 Visit/Account:[id number] Date of Sevice: 09/09/2017 CHEST SINGLE AP 09/09/2017 06:00 hours. HISTORY: Pneumonia. Follow-up. COMPARISON: 09/08/2017 and studies dating to 10/27/2005. TECHNIQUE: Portable AP view of the chest. FINDINGS: Tubes/lines/hardware: There are external chest leads. There is a right chest tube. Spinal stimulator lead terminates at the level of T7. Pulmonary: There has been mild improvement in the bilateral airspace opacities. No pneumothorax. Ther e are small bilateral pleural effusions. The left is stable but the right has mildly decreased. Cardiomediastinal: Cardiac and mediastinal silhouettes are within normal limits. There is mild aortic calcification. Bones/soft tissues: No acute osseous abnormality. The visible abdomen is normal. IMPRESSION: 1. Mild improvement in aeration of the lungs. 2. Mild decrease in size of the small right pleural effusion. The small left pleural effusion is unch anged. Report Dictated By: Akua Navarro at 09/09/2017 6:14 AM Report E-Signed By: Akua Navarro at 09/09/2017 6:17 AM WSN:[id number]
--- NOTE | 2017-09-09 06:36 | General Surgery Progress Note ---
Subjective Progress Notes Subjective Complaining of pain at chest tube site. Patient Complains of: Cardiovascular: No: Chest Pain Respiratory: Cough, No: Shortness of Breath Physical Exam Vital Signs Date Time Temp Pulse Resp B/P (MAP) Pulse Ox O2 Delivery O2 Flow Rate FiO2 09/09/17 05:30 72 09/09/17 03:30 93 High-Flow Nasal Cannula 15.0 09/09/17 03:23 97.0 18 135/78 (97) 09/07/17 03:00 75.0 General Appearance: Alert, Awake, Other (On face mask) Neuro: No Gross deficits ENT: Moist Mucous Membranes Cardiovascular: Regular Rate and Rhythm Chest: Other (chest tube in place, right chest; serosanguinous fluid, no air leak) GI: Soft and Non-Tender Extremities: Warm, Pulses, Perfused Result Diagram: 09/09/1751309/09/17513 Monitor Interpretation: Normal Sinus Rhythm Assessment and Plan Problems: (1) Pleural effusion on right Status: Acute Assessment & Plan: Patient with recurrent right pleural effusion and ongoing pneumonia s/p R chest tube on 09/08/17. Oxygen saturations improved immediately with chest tube placement. ~350ml over past 24 hours after initial 1000ml with insertion. Could place to water seal, resume suction if problems with drainage. Sheryl Turner MD Time Spent: < 30 min Exam Sepsis Risk: Sepsis Risk SHERYL TURNER MD Sep 09, 2017 06:35
[2017-09-09] MEDS: ACETAMINOPHEN 500 MG TAB PO PRN (07:22)
[2017-09-09] MEDS ORDERED: FUROSEMIDE 40 MG/4 ML VIAL IVP ONE (07:45)
[2017-09-09] MEDS: DOCUSATE SODIUM 100 MG CAP PO SCH ×2 (08:42→20:32)
[2017-09-09] MEDS: predniSONE 20 MG TAB PO SCH (08:42)
[2017-09-09] MEDS: MORPHINE 60 MG PO SCH ×2 (08:42→20:32)
[2017-09-09] MEDS: DOXYCYCLINE HYCL 100 MG VIAL 100 MG in NS(*) 0.9% 250 ML BAG 250 ML IV SCH ×2 (08:42→19:29)
[2017-09-09] MEDS: ALLOPURINOL 100 MG TAB PO SCH (08:42)
[2017-09-09] MEDS: guaiFENesin 600 MG TABCR PO SCH ×2 (08:42→20:32)
[2017-09-09] MEDS: DULoxetine HCL 30 MG CAPCR PO SCH ×2 (08:42→20:32)
[2017-09-09] MEDS: ASPIRIN 81 MG ENTERIC COATED PO SCH (08:43)
[2017-09-09] MEDS: PANTOPRAZOLE SOD 40 MG TABEC PO SCH ×2 (08:43→20:32)
[2017-09-09] MEDS: buPROPion SR 150 MG TABCR PO SCH (08:43)
[2017-09-09] MEDS: ENOXAPARIN 40 MG/0.4ML SYR SC SCH (08:43)
[2017-09-09] MEDS: LORazepam 0.5 MG TAB PO PRN ×2 (08:43→16:38)
[2017-09-09] MEDS: CARVEDILOL 3.125 MG TAB PO SCH ×2 (08:43→20:31)
[2017-09-09] MEDS: GABAPENTIN 300 MG CAP PO SCH ×3 (08:43→20:32)
--- NOTE | 2017-09-09 09:39 | Hospitalist Progress Note ---
Subjective Progress Notes Subjective The patient states he is feeling better than yesterday. He has a chest tube in place on the right side now. He remains on high flow O2 with 15L NC and 15L per mask to maintain his saturations. He refuses BiPAP and VapoTherm. Physical Exam Vital Signs Date Time Temp Pulse Resp B/P (MAP) Pulse Ox O2 Delivery O2 Flow Rate FiO2 09/09/17 08:56 99 09/09/17 08:00 High-Flow Nasal Cannula 15.0 09/09/17 07:15 97.4 25 141/72 (95) 87 09/07/17 03:00 75.0 Intake and Output 09/10/17 06:59 Output Total 100 ml Balance -100 ml Output Urine Total 100 ml General Appearance: Alert, Awake, Afebrile, Other (Mild increased work of breathing.) Neuro: No Gross deficits Eyes: PERRLA Cardiovascular: Regular Rate and Rhythm Respiratory: Other (Some rhonchi bilaterally, R>L.) GI: Soft and Non-Tender Extremities: Warm, Perfused Psych: Appropriate Mood & Affect Result Diagram: 09/09/17 0509/09/17 05 Monitor Interpretation: Normal Sinus Rhythm Assessment and Plan Problems: (1) Pneumonia Status: Acute Assessment & Plan: A CT scan 09/06 showed bilateral infiltrates and an effusion on the right. He had over 900cc drained on 09/06. It appeared to be an exudate. Culture is now showing rare gram positive cocci. ID and sensitivity is pending. CXR 09/08 showed reaccumulation of the R pleural effusion and the patient felt "it coming back". Surgery placed a chest tube 09/08. He was initially on empiric treatment with IV ceftriaxone and doxycycline. Blood cultures have been negative. His antibiotics were changed to Primaxin and doxycycline on 09/07. He remains afebrile. WBC continues to improve. (2) ARDS (adult respiratory distress syndrome) Assessment & Plan: He had worsening oxygen requirements over the evening of 09/07. He had not tolerated BiPAP or Vapotherm. He was given a one time dose of IV Lasix 40mg and had good output. His O2 requirements did improve a bit but worsneded again overnight. He is currently on 15L by both nasal canula and oxy mask. He is on steroids. Will give another one time dose of Lasix. (3) COPD (chronic obstructive pulmonary disease) Status: Chronic Assessment & Plan: He is on chronic treatment with Advair and albuterol. He is also receiving oral prednisone. (4) Coronary artery disease Status: Chronic Assessment & Plan: He is on chronic treatment with aspirin and simvastatin. (5) Chronic back pain Status: Chronic Assessment & Plan: He is on chronic treatment with MS Contin 60mg PO BID, gabapentin, duloxetine. Will add back Percocet for breakthrough pain. Time Spent on Plan of Care: < 30 min Exam Sepsis Risk: No Definite Risk Problem Qualifiers (1) Pneumonia: Pneumonia type: due to unspecified organism Laterality: right Lung location : upper lobe of lung Qualified Codes: J18.1 - Lobar pneumonia, unspecified organism SIMA MULLINS MD Sep 09, 2017 09:39
[2017-09-09] MEDS: SIMVASTATIN 20 MG TAB PO SCH (20:32)
[2017-09-10] VITALS (9 sets, daily range): BP systolic 121–148; BP diastolic 64–76
[2017-09-10] MEDS: IMIPENEM/CILASTA(*) 500MG VIAL 500 MG in NS(*) 0.9% 100 ML BAG 100 ML IVPB SCH ×5 (00:28→23:32)
[2017-09-10 05:12] LABS: PLATELET COUNT, AUTOMATED 361 K/uL (150-450)
[2017-09-10] MEDS: TIOTROPIUM BROM INH 18 MCG/CAP INH SCH (05:56)
--- NOTE | 2017-09-10 06:20 | RADIOLOGY IMAGING REPORT ---
FACILITY: [facility] PATIENT NAME: Jaswinder Hall : 1945 MR: [id number] V: [id number] EXAM DATE: ORDERING PHYSICIAN: SIMA MULLINS TECHNOLOGIST: Location: [facility] Patient: Jaswinder Hall : 1945 Visit/Account:[id number] Date of Sevice: 09/10/2017 CHEST SINGLE AP 09/10/2017 06:00 hours. HISTORY: Pneumonia. Follow-up COMPARISON: 09/09/2017 and studies dating to 10/27/2005. TECHNIQUE: Portable AP view of the chest. FINDINGS: Tubes/lines/hardware: There are external chest leads. Unchanged spinal stimulator lead. There is a ri ght chest tube, unchanged. Pulmonary: There has been mild improvement in aeration of the left lung. No significant change in aer ation of the right lung. No pneumothorax. Small bilateral pleural effusions are unchanged. Cardiomediastinal: Cardiac and mediastinal silhouettes are within normal limits. There is mild aortic calcification. Bones/soft tissues: No acute osseous abnormality. The visible abdomen is normal. IMPRESSION: 1. Mild improvement in aeration of the left lung. 2. No change in aeration of the right lung. 3. Stable small pleural effusions. Report Dictated By: Akua Navarro at 09/10/2017 6:13 AM Report E-Signed By: Akua Navarro at 09/10/2017 6:16 AM WSN:[id number]
[2017-09-10] MEDS: SALMETEROL/FLUTIC 100/50 1 INH INH SCH ×2 (07:45→17:45)
[2017-09-10] MEDS: DOXYCYCLINE HYCL 100 MG VIAL 100 MG in NS(*) 0.9% 250 ML BAG 250 ML IV SCH ×2 (07:56→19:56)
--- NOTE | 2017-09-10 07:58 | General Surgery Progress Note ---
Subjective Progress Notes Subjective complains of some left chest pain with inspiration. Physical Exam Vital Signs Date Time Temp Pulse Resp B/P (MAP) Pulse Ox O2 Delivery O2 Flow Rate FiO2 09/10/17 07:46 91 Oxy Mask 15.0 09/10/17 07:11 97.6 77 20 148/70 (96) 09/07/17 03:00 75.0 Intake and Output 09/11/17 07:00 Output Total 5 ml Balance -5 ml Chest Tube Drainage Total 5 ml General Appearance: Alert, Awake Chest: Other (not much out chest tube in last 24 hours) Result Diagram: 09/10/17 0503 09/10/17 0503 Monitor Interpretation: Normal Sinus Rhythm Assessment and Plan Problems: (1) Pleural effusion on right Status: Acute Assessment & Plan: will do thoracentesis for improved lung function and analysis 09/10/17 in pt does not get much output from chest tube will remove it this afternoon Exam Sepsis Risk: No Definite Risk EARNEST COON MD Sep 10, 2017 07:58
--- NOTE | 2017-09-10 08:02 | Hospitalist Progress Note ---
Subjective Progress Notes Subjective He complains of pain on right with deep breathing/chest tube. No fever. Physical Exam Vital Signs Date Time Temp Pulse Resp B/P (MAP) Pulse Ox O2 Delivery O2 Flow Rate FiO2 09/10/17 07:46 91 Oxy Mask 15.0 09/10/17 07:11 97.6 77 20 148/70 (96) 09/07/17 03:00 75.0 Intake and Output 09/11/17 07:00 Output Total 5 ml Balance -5 ml Chest Tube Drainage Total 5 ml General Appearance: Alert, Awake Cardiovascular: Regular Rate and Rhythm (distant tones), No Edema Respiratory: Other (diminished breath sounds and few rales at bases) Extremities: Warm, Perfused Psych: Alert & Oriented X3 Result Diagram: 09/10/17 0503 09/10/17 0503 Monitor Interpretation: Normal Sinus Rhythm Assessment and Plan Problems: (1) Pneumonia Status: Acute Assessment & Plan: CT scan 09/06 showed bilateral infiltrates and an effusion on the right. He had over 900cc drained on 09/06. It appeared possibly to be an exudate (protein >50% of serum level). Culture is growing rare gram positive cocci. ID and sensitivity is pending - suspect this could easily be a contaminant. CXR 09/08 showed re-accumulation of the R pleural effusion and the patient felt "it coming back". Surgery placed a chest tube 09/08 - output has been slowing. He was initially on empiric treatment with IV ceftriaxone and doxycycline. Blood cultures have been negative. His antibiotics were changed to Primaxin and doxycycline on 09/07. He remains afebrile. WBC continues to improve. Hopefully, chest tube will come out soon. (2) ARDS (adult respiratory distress syndrome) Assessment & Plan: He had worsening oxygen requirements over the evening of 09/07. He had not tolerated BiPAP or Vapotherm. He has been receiving intermittent doses of IV Lasix with some improvements in his O2 requirement and CXR. Will repeat dose of Lasix 40mg IV today. (3) COPD (chronic obstructive pulmonary disease) Status: Chronic Assessment & Plan: He is on chronic treatment with Advair and albuterol. He is also receiving oral prednisone. (4) Coronary artery disease Status: Chronic Assessment & Plan: He is on chronic treatment with aspirin and simvastatin. (5) Chronic back pain Status: Chronic Assessment & Plan: He is on chronic treatment with MS Contin 60mg PO BID, gabapentin, duloxetine. We have added back Percocet for breakthrough pain. Exam Sepsis Risk: No Definite Risk Problem Qualifiers (1) Pneumonia: Pneumonia type: due to unspecified organism Laterality: right Lung location : upper lobe of lung Qualified Codes: J18.1 - Lobar pneumonia, unspecified organism AURE MULLINS MD Sep 10, 2017 08:02
[2017-09-10] MEDS: DULoxetine HCL 30 MG CAPCR PO SCH ×2 (08:19→20:22)
[2017-09-10] MEDS: MORPHINE 60 MG PO SCH ×2 (08:19→20:22)
[2017-09-10] MEDS: guaiFENesin 600 MG TABCR PO SCH ×2 (08:20→20:22)
[2017-09-10] MEDS: GABAPENTIN 300 MG CAP PO SCH ×3 (08:20→20:22)
[2017-09-10] MEDS: predniSONE 20 MG TAB PO SCH (08:20)
[2017-09-10] MEDS: POTASSIUM CHL 10 MEQ TABCR PO SCH ×2 (08:21→17:02)
[2017-09-10] MEDS: ALLOPURINOL 100 MG TAB PO SCH (08:23)
[2017-09-10] MEDS: CARVEDILOL 3.125 MG TAB PO SCH ×2 (08:23→20:22)
[2017-09-10] MEDS: DOCUSATE SODIUM 100 MG CAP PO SCH ×2 (08:23→20:22)
[2017-09-10] MEDS: PANTOPRAZOLE SOD 40 MG TABEC PO SCH ×2 (08:26→20:22)
[2017-09-10] MEDS: ASPIRIN 81 MG ENTERIC COATED PO SCH (08:26)
[2017-09-10] MEDS: buPROPion SR 150 MG TABCR PO SCH (08:26)
[2017-09-10] MEDS: ENOXAPARIN 40 MG/0.4ML SYR SC SCH (08:26)
[2017-09-10] MEDS ORDERED: FUROSEMIDE 40 MG/4 ML VIAL IVP ONE (09:00)
--- NOTE | 2017-09-10 17:07 | General Surgery Progress Note ---
Subjective Progress Notes Subjective no complaints Physical Exam Vital Signs Date Time Temp Pulse Resp B/P (MAP) Pulse Ox O2 Delivery O2 Flow Rate FiO2 09/10/17 16:16 97.6 77 32 134/68 (90) 85 High-Flow Nasal Cannula 15.0 09/07/17 03:00 75.0 Intake and Output 09/11/17 07:00 Intake Total 1166 ml Output Total 2530 ml Balance -1364 ml Intake Oral 780 ml IV Total 386 ml Output Urine Total 2525 ml Chest Tube Drainage Total 5 ml Chest: Other (essentially no drainage, chest tube removed) Result Diagram: 09/10/17 0503 09/10/17 0503 Monitor Interpretation: Normal Sinus Rhythm Assessment and Plan Problems: (1) Pleural effusion on right Status: Acute Assessment & Plan: will do thoracentesis for improved lung function and analysis 09/10/17 in pt does not get much output from chest tube will remove it this afternoon 09/10/17 chest tube removed Exam Sepsis Risk: No Definite Risk EARNEST COON MD Sep 10, 2017 17:07
[2017-09-10] MEDS: SIMVASTATIN 20 MG TAB PO SCH (20:23)
[2017-09-10] MEDS: LORazepam 0.5 MG TAB PO PRN (23:32)
[2017-09-11] VITALS (9 sets, daily range): BP systolic 109–151; BP diastolic 53–85
[2017-09-11] MEDS: ACETAMINOPHEN 325 MG TAB PO PRN ×2 (04:58→21:50)
[2017-09-11 05:05] LABS: PLATELET COUNT, AUTOMATED 400 K/uL (150-450)
[2017-09-11] MEDS: IMIPENEM/CILASTA(*) 500MG VIAL 500 MG in NS(*) 0.9% 100 ML BAG 100 ML IVPB SCH ×4 (05:38→23:52)
[2017-09-11] MEDS: SALMETEROL/FLUTIC 100/50 1 INH INH SCH ×2 (05:39→17:59)
[2017-09-11] MEDS: TIOTROPIUM BROM INH 18 MCG/CAP INH SCH (05:40)
--- NOTE | 2017-09-11 05:51 | RADIOLOGY IMAGING REPORT ---
FACILITY: [facility] [place] PATIENT NAME: Jaswinder Hall : 1945 MR: [id number] V: [id number] EXAM DATE: ORDERING PHYSICIAN: AURE MULLINS TECHNOLOGIST: Location: [facility] - [place] Patient: Jaswinder Hall : 1945 Visit/Account:[id number] Date of Sevice: 09/11/2017 EXAMINATION: Portable AP Chest 09/11/2017 5:00 AM HISTORY: pneumonia/chest tube COMPARISON: 09/10/2017 FINDINGS: Cardiomediastinal contours: Stable cardiomegaly. Atherosclerosis. Patient is not intubated. Lungs and pleura: Reticular prominence in both lungs persists. Patchy airspace opacities in the right base and retrocardiac consolidation on the left. Small bilateral effusions. Right chest tube is been removed. No significant pneumothorax. Bones/soft tissues: Spinal stimulator lead in place. IMPRESSION: 1. Interval right chest tube removal. No significant pneumothorax. 2. Persistent reticular prominence in the lungs suggesting edema. Small effusions. Airspace opacity i n the bases may be atelectasis or infiltrate. Report Dictated By: Anthony Fragoso MD at 09/11/2017 5:45 AM Report E-Signed By: Anthony Fragoso MD at 09/11/2017 5:48 AM WSN:[id number]
[2017-09-11] MEDS: DOXYCYCLINE HYCL 100 MG VIAL 100 MG in NS(*) 0.9% 250 ML BAG 250 ML IV SCH ×2 (08:00→19:17)
[2017-09-11] MEDS ORDERED: FUROSEMIDE 40 MG/4 ML VIAL IVP ONE (08:10)
[2017-09-11] MEDS: ENOXAPARIN 40 MG/0.4ML SYR SC SCH (08:34)
[2017-09-11] MEDS: PANTOPRAZOLE SOD 40 MG TABEC PO SCH ×2 (08:35→20:41)
[2017-09-11] MEDS: MORPHINE 60 MG PO SCH ×2 (08:35→20:41)
[2017-09-11] MEDS: ASPIRIN 81 MG ENTERIC COATED PO SCH (08:35)
[2017-09-11] MEDS: buPROPion SR 150 MG TABCR PO SCH (08:35)
[2017-09-11] MEDS: guaiFENesin 600 MG TABCR PO SCH ×2 (08:35→20:41)
[2017-09-11] MEDS: CARVEDILOL 3.125 MG TAB PO SCH ×2 (08:35→20:41)
[2017-09-11] MEDS: predniSONE 20 MG TAB PO SCH (08:35)
[2017-09-11] MEDS: ALLOPURINOL 100 MG TAB PO SCH (08:35)
[2017-09-11] MEDS: POTASSIUM CHL 10 MEQ TABCR PO SCH ×2 (08:35→17:15)
[2017-09-11] MEDS: GABAPENTIN 300 MG CAP PO SCH ×3 (08:35→20:41)
[2017-09-11] MEDS: DOCUSATE SODIUM 100 MG CAP PO SCH ×2 (08:35→20:41)
[2017-09-11] MEDS: DULoxetine HCL 30 MG CAPCR PO SCH ×2 (08:36→20:41)
--- NOTE | 2017-09-11 09:14 | Hospitalist Progress Note ---
Subjective Progress Notes Subjective Mr. Hall is a 72yo male with PMHx of COPD due to long standing smoking , CAD, HTN, Pulmonary HTN, BPH, Gout, Depression, GERD and Chronic back pain. He presented with acute dyspnea and pleuritic chest pain on 09/02/17. He found to have RLL pneumonia with pleural effusion. He received IV Primaxin and Doxycycline. He also underwent thoracentesis with chest tube also; 1L exudative fluid removed with high protein and high WBC but gram stain is negative yet. His WBC down from 25K to 13.7 today and he is afebrile. He is currently on Primaxin and Doxycycline. He is still requiring high oxygenation. He is up on the chair today and seems depressed due to his chronic diseases. He still has cough otherwise stable. Patient Complains of: Neurological: No: Confusion, Weakness, Dizziness Cardiovascular: No: Chest Pain, Palpitations Respiratory: Cough, Congestion, Shortness of Breath, No: Wheezing Gastrointestinal: No Nausea, No Vomiting, No Flatus Genitourinary: No Dysuria, No Hematuria Musculoskeletal: No: Pain, Sprain, Strain Physical Exam Vital Signs Date Time Temp Pulse Resp B/P (MAP) Pulse Ox O2 Delivery O2 Flow Rate FiO2 09/11/17 07:50 70 09/11/17 07:00 98.2 17 145/73 (97) 88 High-Flow Nasal Cannula 7.0 Intake and Output 09/12/17 07:00 Intake Total 106 ml Balance 106 ml IV Total 106 ml General Appearance: Alert, Awake, No Acute Distress, Afebrile Neuro: No Gross deficits Eyes: PERRLA ENT: Normal Cardiovascular: Normal Rhythm & Peripheral Pulses Respiratory: Other (mild respiratory distress and positive bibasilar rales R>L) GI: Soft and Non-Tender Extremities: Soft and Non Tender Psych: Alert & Oriented X3, Other (depressed) Result Diagram: 09/11/17 0455 09/11/17 0455 Monitor Interpretation: Normal Sinus Rhythm Assessment and Plan Problems: (1) Pneumonia Status: Acute Assessment & Plan: CT scan 09/06 showed bilateral infiltrates and an effusion on the right. He had over 900cc drained on 09/06. It appeared possibly to be an exudate (protein >50% of serum level). Culture is growing rare gram positive cocci. ID and sensitivity is pending - suspect this could easily be a contaminant. CXR 09/08 showed re-accumulation of the R pleural effusion and the patient felt "it coming back". Surgery placed a chest tube 09/08 - output has been slowing. He was initially on empiric treatment with IV ceftriaxone and doxycycline. Blood cultures have been negative. His antibiotics were changed to Primaxin and doxycycline on 09/07. He remains afebrile. WBC continues to improve. Hopefully, chest tube will come out soon. 09/11: I will continue his Primaxin and Doxycycline, I will try Lasix 40mg IV one dose and repeat CMP in am. I will check his BNP, CBC, Mag level in am. I will encourage ambulation today and possible transfer to medical floor in am. I will repeat CXR in am. (2) ARDS (adult respiratory distress syndrome) Status: Acute Assessment & Plan: He had worsening oxygen requirements over the evening of 09/07. He had not tolerated BiPAP or Vapotherm. He has been receiving intermittent doses of IV Lasix with some improvements in his O2 requirement and CXR. Will repeat dose of Lasix 40mg IV today. 09/11: I will give Lasix 40mg IV one dose today. (3) COPD (chronic obstructive pulmonary disease) Status: Chronic Assessment & Plan: He is on chronic treatment with Advair and albuterol. He is also receiving oral prednisone. 09/11: I will start chest and pulse therapy in am by respiratory. (4) Coronary artery disease Status: Chronic Assessment & Plan: He is on chronic treatment with aspirin and simvastatin. (5) Chronic back pain Status: Chronic Assessment & Plan: He is on chronic treatment with MS Contin 60mg PO BID, gabapentin, duloxetine. We have added back Percocet for breakthrough pain. Central Venous Access Medical Necessity for Access: Hemodynamic Monitoring, IV Access, Medication Administration Condition gradual improvement Time Spent on Plan of Care: > 30 min Copies to: LEANNE DOWNING MD Exam Sepsis Risk: No Definite Risk Problem Qualifiers (1) Pneumonia: Pneumonia type: due to unspecified organism Laterality: right Lung location : upper lobe of lung Qualified Codes: J18.1 - Lobar pneumonia, unspecified organism SERA VUONG MD Sep 11, 2017 09:14
--- NOTE | 2017-09-11 12:52 | Medical Nutrition Therapy ---
Nutrition Anthropometrics Height (Inches): 68.00 Height (Calculated Centimeters: 172.528678 Weight (Pounds): 190 Weight (Calculated Kilograms): 86.183 Ezekiel Nutrition Score: Probably Inadequate Ezekiel Nutrition Risk Score: 18 Dietary Referral Nutrition Risk Factors: Nutrition Risk Comment: Physical Findings Physical Appearance: Overweight BMI 25-29 Skin Appearance Skin Appearance: Edema Edema Location Modifier: Both Edema Location: Type of Edema: Degree of Edema: Gastrointestinal Symptoms GI Symtoms: Appetite Changes Tube Present: Bowel Sounds: Recent Bowel Pattern: Stool Characteristics: Nutritional Diagnosis Nutritional Risk Acuity 2: Swallowing Problem Nutritional Risk Acuity 3: COPD Unstable Nutritional Risk Acuity 4: Good Appetite Past Medical History: COPD, chronic back pain, GERD, BPH, HTN, CAD, depression, gout, pneumonia, anemia, bilateral groin pain, testical pain, ARDS Nutritional Acuity: 2-Moderate Nutrition Etiology: Physiological Causes Nutrition Problem/Etiology/Sym: Unintended weight loss related to physiological causes as evidence by 13lb weight loss since 09/07. Inaquate protein intake related to physiological causes as evidence by alb (2.2). Energy Requirement: 1892 (Meier Benedic adj kcal with BMI >27.5) Protein Requirement: 92 (1g/kg) Fluid Requirement: 1892 (1ml/kcal) Diet Type: Diet as Tolerated IMMANUEL/REG, Thickened Liquid (nectar thicken recommended by speech) Nutrition Intervention: Cont diet as ordered, Encourage intake Diet Comment To RSA: ADD PROTEIN POWDER TO APPROPRIATE MEALS Nutrition Monitoring & Eval Nutrition Goals: Eat 75-100% Meal RD Patient Assessment Time: [address] Assessment Type: RD Assessment Patient Nutrition Acuity: 2-Moderate Follow Up Date: Sep 15, 2017 Nutritional Comment: 09/03 Pt admitted for chest pain and shortness of breath. Pt has PMHx significant for COPD, chronic back pain. Pt is on IMMANUEL/REG diet with 50% oral intake. Alb (2.8) and elevated random blood glucose (141). Continue to monitor pt progress, labs and encourage intake. MT 09/07 Pt continues on regular diet with 100% oral intake. Pt states that he does have a hard time swallowing liquids. Pt was observed by speech, they had recommended nectar thicken liquids. Pt has had a unintentional wt gain of 13#. Possible wt gain could be caused by fluid retention. Continue to monitor wt. Pt H/H has decreased, along with alb (2.1) and total protein (5.2). Add protein powered to appropriate foods, to help increase alb levels. Blood glucose has stabilized. Continue to monitor pt clinical progress, wt, labs and encourage intake. MT 09/11 Pt has had an a change to his diet. Pt will continue on a regular diet with thicken liquids. Pt has had hard time swallowing liquids, but has refused thicken liquids. Pt has been educated several times on the importance of drinking a thicken liquid rather than normal. Pt is consuming 100% of his meals, with both small and regular portion sizes. Pt continues to experience chest pain and has had fluid removed from his lungs several times. Pt had a chest tube placed on his right side. The tube was removed yesterday (09/10). Pt WBC has improved. BUN (22) and alb (2.2). Continue to add protein to appropriate foods to ensure pt meet protein needs and healing. Pt has had a wt loss of 6.5% since (09/07) possible wt loss could be caused by fluid loss. Continue to monitor pt progress, labs and encourage intake. -HARSH MOSQUEDA Sep 11, 2017 09:30
[2017-09-11] MEDS ORDERED: NS(*) 0.9% 50 ML BAG 50 ML ONE (20:14)
[2017-09-11] MEDS: SIMVASTATIN 20 MG TAB PO SCH (20:41)
[2017-09-11] MEDS: NYSTATIN 5 ML UDCUP PO SCH (20:41)
[2017-09-11] MEDS: traZODone HCL 50 MG TAB PO PRN (21:50)
[2017-09-12] VITALS (7 sets, daily range): BP systolic 103–139; BP diastolic 55–86
[2017-09-12 05:10] LABS: PLATELET COUNT, AUTOMATED 421 K/uL (150-450)
[2017-09-12] MEDS: IMIPENEM/CILASTA(*) 500MG VIAL 500 MG in NS(*) 0.9% 100 ML BAG 100 ML IVPB SCH ×4 (05:21→23:39)
[2017-09-12] MEDS: SALMETEROL/FLUTIC 100/50 1 INH INH SCH ×2 (05:49→18:07)
[2017-09-12] MEDS: TIOTROPIUM BROM INH 18 MCG/CAP INH SCH (05:49)
--- NOTE | 2017-09-12 07:28 | RADIOLOGY IMAGING REPORT ---
FACILITY: [facility] - [place] PATIENT NAME: Jaswinder Hall : 1945 MR: [id number] V: [id number] EXAM DATE: ORDERING PHYSICIAN: SERA VUONG TECHNOLOGIST: Location: [facility] - [place], [place] Patient: Jaswinder Hall : 1945 Visit/Account:[id number] Date of Sevice: 09/12/2017 Single view of the chest Indication: Pneumonia. Comparison: X-ray examination chest X 2017 Findings: Cardiac silhouette is unchanged. There is persistent patchy opacity left lateral base with small left effusion. Airspace consolidation is seen extending from the inferior left hilum and left lower lobe, unchanged. Persistent interstitial and alveolar infiltrate right base. Small right effusion, unchang ed. There is a convex appearance right lateral pleura indicative of some degree of loculation, unchan ged. Perihilar linear prominence of the interstitium is unchanged. No pneumothorax. IMPRESSION: 1. Compared to x-ray examination from 09/11/2017, no change. Report Dictated By: Aj Troy MD at 09/12/2017 7:21 AM Report E-Signed By: Aj Troy MD at 09/12/2017 7:24 AM WSN:[id number]
[2017-09-12] MEDS: DOXYCYCLINE HYCL 100 MG VIAL 100 MG in NS(*) 0.9% 250 ML BAG 250 ML IV SCH ×2 (07:50→20:38)
[2017-09-12] MEDS: ALLOPURINOL 100 MG TAB PO SCH (09:00)
[2017-09-12] MEDS ORDERED: FUROSEMIDE 20 MG/2 ML VIAL IVP ONE (09:00)
[2017-09-12] MEDS: MORPHINE 60 MG PO SCH ×2 (09:00→20:39)
[2017-09-12] MEDS: POTASSIUM CHL 10 MEQ TABCR PO SCH ×2 (09:00→17:18)
[2017-09-12] MEDS: ASPIRIN 81 MG ENTERIC COATED PO SCH (09:00)
[2017-09-12] MEDS: GABAPENTIN 300 MG CAP PO SCH ×3 (09:00→20:39)
[2017-09-12] MEDS: DULoxetine HCL 30 MG CAPCR PO SCH ×2 (09:01→20:39)
[2017-09-12] MEDS: predniSONE 20 MG TAB PO SCH (09:01)
[2017-09-12] MEDS: PANTOPRAZOLE SOD 40 MG TABEC PO SCH ×2 (09:01→20:38)
[2017-09-12] MEDS: CARVEDILOL 3.125 MG TAB PO SCH ×2 (09:02→20:39)
[2017-09-12] MEDS: DOCUSATE SODIUM 100 MG CAP PO SCH ×2 (09:02→20:39)
[2017-09-12] MEDS: buPROPion SR 150 MG TABCR PO SCH (09:02)
[2017-09-12] MEDS: ENOXAPARIN 40 MG/0.4ML SYR SC SCH (09:02)
[2017-09-12] MEDS: guaiFENesin 600 MG TABCR PO SCH ×2 (09:02→20:39)
[2017-09-12] MEDS: NYSTATIN 5 ML UDCUP PO SCH ×4 (09:03→20:59)
--- NOTE | 2017-09-12 09:35 | Hospitalist Progress Note ---
Subjective Progress Notes Subjective 09/11: Mr. Hall is a 72yo male with PMHx of COPD due to long standing smoking , CAD, HTN, Pulmonary HTN, BPH, Gout, Depression, GERD and Chronic back pain. He presented with acute dyspnea and pleuritic chest pain on 09/02/17. He found to have RLL pneumonia with pleural effusion. He received IV Primaxin and Doxycycline. He also underwent thoracentesis with chest tube also; 1L exudative fluid removed with high protein and high WBC but gram stain is negative yet. His WBC down from 25K to 13.7 today and he is afebrile. He is currently on Primaxin and Doxycycline. He is still requiring high oxygenation. He is up on the chair today and seems depressed due to his chronic diseases. He still has cough otherwise stable. 09/12: He slept well and feels better. He is afebrile and hemodynamically stable without any sig. complaint. His WBC are still high and he is on Primaxin, Doxycycline and Prednisone. His all cultures are negative. His BNP is 149. He responded well to the Lasix yesterday and his oxygenation has also improved. His current weight is 85kg. Patient Complains of: Neurological: No: Confusion, Weakness, Dizziness Cardiovascular: No: Chest Pain, Palpitations Respiratory: Shortness of Breath (mild to moderate ), No: Cough, Congestion Gastrointestinal: No Nausea, No Vomiting Genitourinary: No Dysuria, No Hematuria Musculoskeletal: No: Pain, Sprain, Strain Physical Exam Vital Signs Date Time Temp Pulse Resp B/P (MAP) Pulse Ox O2 Delivery O2 Flow Rate FiO2 09/12/17 09:23 88 High-Flow Nasal Cannula 13.0 09/12/17 08:46 97.6 77 20 129/62 (84) 09/12/17 04:08 75.0 General Appearance: Alert, Awake, No Acute Distress, Afebrile Neuro: No Gross deficits Eyes: PERRLA ENT: Normal Cardiovascular: Normal Rhythm & Peripheral Pulses Respiratory: Other (mild respiratory distress with basilar rales) GI: Soft and Non-Tender Extremities: Soft and Non Tender Psych: Alert & Oriented X3, Appropriate Mood & Affect Result Diagram: 09/12/17 0505 09/12/17 0505 Monitor Interpretation: Normal Sinus Rhythm Assessment and Plan Problems: (1) Pneumonia Status: Acute Assessment & Plan: CT scan 09/06 showed bilateral infiltrates and an effusion on the right. He had over 900cc drained on 09/06. It appeared possibly to be an exudate (protein >50% of serum level). Culture is growing rare gram positive cocci. ID and sensitivity is pending - suspect this could easily be a contaminant. CXR 09/08 showed re-accumulation of the R pleural effusion and the patient felt "it coming back". Surgery placed a chest tube 09/08 - output has been slowing. He was initially on empiric treatment with IV ceftriaxone and doxycycline. Blood cultures have been negative. His antibiotics were changed to Primaxin and doxycycline on 09/07. He remains afebrile. WBC continues to improve. Hopefully, chest tube will come out soon. 09/11: I will continue his Primaxin and Doxycycline, I will try Lasix 40mg IV one dose and repeat CMP in am. I will check his BNP, CBC, Mag level in am. I will encourage ambulation today and possible transfer to medical floor in am. I will repeat CXR in am. 09/12; I will continue his antibiotics and decrease his Prednisone to 10mg po qd. I will use Lasix 20mg IV today. I will get CBC, BMP and CXR in am. I will transfer the patient to medical floor today for further management. (2) ARDS (adult respiratory distress syndrome) Status: Resolved Assessment & Plan: He had worsening oxygen requirements over the evening of 09/07. He had not tolerated BiPAP or Vapotherm. He has been receiving intermittent doses of IV Lasix with some improvements in his O2 requirement and CXR. Will repeat dose of Lasix 40mg IV today. 09/11: I will give Lasix 40mg IV one dose today. (3) COPD (chronic obstructive pulmonary disease) Status: Chronic Assessment & Plan: He is on chronic treatment with Advair and albuterol. He is also receiving oral prednisone. 09/11: I will start chest and pulse therapy in am by respiratory. (4) Coronary artery disease Status: Chronic Assessment & Plan: He is on chronic treatment with aspirin and simvastatin. (5) Chronic back pain Status: Chronic Assessment & Plan: He is on chronic treatment with MS Contin 60mg PO BID, gabapentin, duloxetine. We have added back Percocet for breakthrough pain. Central Venous Access Medical Necessity for Access: Hemodynamic Monitoring, IV Access, Medication Administration Condition improving Time Spent on Plan of Care: > 30 min Copies to: LEANNE DOWNING MD Exam Sepsis Risk: No Definite Risk Problem Qualifiers (1) Pneumonia: Pneumonia type: due to unspecified organism Laterality: right Lung location : upper lobe of lung Qualified Codes: J18.1 - Lobar pneumonia, unspecified organism SERA VUONG MD Sep 12, 2017 09:35
[2017-09-12] MEDS: ALBUTEROL 2.5 MG/3 ML NEB NEB PRN ×2 (10:06→23:59)
[2017-09-12] MEDS ORDERED: LIDOCAINE/SOD BICARB 8.4% SYR ONE (16:50)
[2017-09-12] MEDS: NS(*) 0.9% 250 ML BAG 250 ML IV PRN (18:38)
[2017-09-12] MEDS: SIMVASTATIN 20 MG TAB PO SCH (20:38)
[2017-09-12] MEDS: traZODone HCL 50 MG TAB PO PRN (23:39)
[2017-09-13 03:56] VITALS: BP 128/73
[2017-09-13] MEDS: SALMETEROL/FLUTIC 100/50 1 INH INH SCH ×2 (05:15→17:07)
[2017-09-13] MEDS: TIOTROPIUM BROM INH 18 MCG/CAP INH SCH (05:15)
[2017-09-13] MEDS: ALBUTEROL 2.5 MG/3 ML NEB NEB PRN (05:15)
[2017-09-13] MEDS: IMIPENEM/CILASTA(*) 500MG VIAL 500 MG in NS(*) 0.9% 100 ML BAG 100 ML IVPB SCH ×3 (05:32→18:00)
[2017-09-13 06:28] LABS: PLATELET COUNT, AUTOMATED 400 K/uL (150-450)
--- NOTE | 2017-09-13 06:31 | RADIOLOGY IMAGING REPORT ---
FACILITY: [facility] PATIENT NAME: Jaswinder Hall : 1945 MR: [id number] V: [id number] EXAM DATE: ORDERING PHYSICIAN: SERA VUONG TECHNOLOGIST: Location: [facility] Patient: Jaswinder Hall : 1945 Visit/Account:[id number] Date of Sevice: 09/13/2017 CHEST SINGLE AP 09/13/2017 06:00 hours. HISTORY: Pneumonia. Follow-up. COMPARISON: 09/12/2017 and studies dating to 10/27/2005. TECHNIQUE: Portable AP view of the chest. FINDINGS: Tubes/lines/hardware: Spinal stimulator lead terminates at the level of T7. Pulmonary: Small bilateral pleural effusions and bibasilar opacities are unchanged. Interstitial prom inence is unchanged. No pneumothorax. Cardiomediastinal: Cardiac and mediastinal silhouettes are within normal limits. There is mild aortic calcification. Bones/soft tissues: No acute osseous abnormality. The visible abdomen is normal. IMPRESSION: 1. No significant interval change. Report Dictated By: Akua Navarro at 09/13/2017 6:24 AM Report E-Signed By: Akua Navarro at 09/13/2017 6:26 AM WSN:[id number]
[2017-09-13 08:05] VITALS: BP 131/67
[2017-09-13] MEDS: ALLOPURINOL 100 MG TAB PO SCH (08:21)
[2017-09-13] MEDS: POTASSIUM CHL 10 MEQ TABCR PO SCH ×2 (08:21→17:03)
[2017-09-13] MEDS: MORPHINE 60 MG PO SCH ×2 (08:21→20:13)
[2017-09-13] MEDS: ASPIRIN 81 MG ENTERIC COATED PO SCH (08:21)
[2017-09-13] MEDS: buPROPion SR 150 MG TABCR PO SCH (08:21)
[2017-09-13] MEDS: GABAPENTIN 300 MG CAP PO SCH ×3 (08:22→20:13)
[2017-09-13] MEDS: predniSONE 20 MG TAB PO SCH (08:22)
[2017-09-13] MEDS: DOCUSATE SODIUM 100 MG CAP PO SCH ×2 (08:22→20:14)
[2017-09-13] MEDS: CARVEDILOL 3.125 MG TAB PO SCH ×2 (08:22→20:14)
[2017-09-13] MEDS: guaiFENesin 600 MG TABCR PO SCH ×2 (08:22→20:13)
[2017-09-13] MEDS: PANTOPRAZOLE SOD 40 MG TABEC PO SCH ×2 (08:22→20:14)
[2017-09-13] MEDS: DULoxetine HCL 30 MG CAPCR PO SCH ×2 (08:22→20:13)
[2017-09-13] MEDS: ENOXAPARIN 40 MG/0.4ML SYR SC SCH (08:23)
[2017-09-13] MEDS: DOXYCYCLINE HYCL 100 MG VIAL 100 MG in NS(*) 0.9% 250 ML BAG 250 ML IV SCH ×2 (08:29→20:14)
[2017-09-13] MEDS ORDERED: POTASSIUM CHL 10 MEQ TABCR PO ONE (08:50)
[2017-09-13] MEDS: NYSTATIN 5 ML UDCUP PO SCH ×4 (10:20→20:14)
[2017-09-13] MEDS: FUROSEMIDE 40 MG/4 ML VIAL IVP SCH ×2 (10:21→14:34)
--- NOTE | 2017-09-13 10:26 | Hospitalist Progress Note ---
Subjective Progress Notes Subjective He reports continued pleuritic chest pain on the right. Not reporting worsening SOB. Physical Exam Vital Signs Date Time Temp Pulse Resp B/P (MAP) Pulse Ox O2 Delivery O2 Flow Rate FiO2 09/13/17 08:05 97.8 66 16 131/67 (88) 97 High-Flow Nasal Cannula 11.0 09/12/17 04:08 75.0 Intake and Output 09/14/17 07:00 Intake Total 260 ml Balance 260 ml Intake Oral 260 ml General Appearance: Alert, Awake, No Acute Distress Respiratory: Other (Insp crackles in the left base. Moving air fairly well to bases ) Result Diagram: 09/13/17 0555 09/13/17 0555 Monitor Interpretation: Normal Sinus Rhythm Assessment and Plan Problems: (1) Pneumonia Status: Acute Assessment & Plan: CT scan 09/06 showed bilateral infiltrates and an effusion on the right. He had over 900cc drained on 09/06. It appeared possibly to be an exudate (protein >50% of serum level). Culture is growing rare gram positive cocci. ID and sensitivity is pending - suspect this could easily be a contaminant. CXR 09/08 showed re-accumulation of the R pleural effusion and the patient felt "it coming back". Surgery placed a chest tube 09/08 - output has been slowing. He was initially on empiric treatment with IV ceftriaxone and doxycycline. Blood cultures have been negative. His antibiotics were changed to Primaxin and doxycycline on 09/07. He remains afebrile. WBC continues to improve. Hopefully, chest tube will come out soon. 09/11: I will continue his Primaxin and Doxycycline, I will try Lasix 40mg IV one dose and repeat CMP in am. I will check his BNP, CBC, Mag level in am. I will encourage ambulation today and possible transfer to medical floor in am. I will repeat CXR in am. 09/12; I will continue his antibiotics and decrease his Prednisone to 10mg po qd. I will use Lasix 20mg IV today. I will get CBC, BMP and CXR in am. I will transfer the patient to medical floor today for further management. 09/13: Afebrile. WBC slowly trending down. CXR about the same. Chest tube has been out since 09/10. Will continue Primaxin (started 09/06) and Doxycycline (started ). Will get a PICC line for presumed 7 more days of abx, and blood draws because staff is having difficulty getting IV's placed. Will ask OT/PT to see because of prolonged hospitalization and weakness. (2) ARDS (adult respiratory distress syndrome) Status: Resolved Assessment & Plan: He had worsening oxygen requirements over the evening of 09/07. He had not tolerated BiPAP or Vapotherm. He has been receiving intermittent doses of IV Lasix with some improvements in his O2 requirement and CXR. Will repeat dose of Lasix 40mg IV today. 09/11: I will give Lasix 40mg IV one dose today. 09/13: Will start scheduled Lasix 40mg IV bidd. Potassium increased to help with presumed loss related to increasing Lasix. (3) COPD (chronic obstructive pulmonary disease) Status: Chronic Assessment & Plan: He is on chronic treatment with Advair and albuterol. He is also receiving oral prednisone. 09/11: I will start chest and pulse therapy in am by respiratory. 09/13: Continue prednisone. (4) Coronary artery disease Status: Chronic Assessment & Plan: He is on chronic treatment with aspirin and simvastatin. (5) Chronic back pain Status: Chronic Assessment & Plan: He is on chronic treatment with MS Contin 60mg PO BID, gabapentin, duloxetine. We have added back Percocet for breakthrough pain. Central Venous Access Medical Necessity for Access: Hemodynamic Monitoring, IV Access, Medication Administration Exam Sepsis Risk: No Definite Risk Problem Qualifiers (1) Pneumonia: Pneumonia type: due to unspecified organism Laterality: right Lung location : upper lobe of lung Qualified Codes: J18.1 - Lobar pneumonia, unspecified organism DARYL RING MD Sep 13, 2017 10:26
[2017-09-13 11:30] VITALS: BP 128/87
--- NOTE | 2017-09-13 14:06 | Medical Nutrition Therapy ---
Nutritional Education Nutrition Education Topic: Other Response to Teaching: Verbalize understanding Teaching Recipient: Patient Nutrition Counseling: Pt admitted with aspiration pneumonia with recommendation for thicken liquid diet from [facility]. Pt is not tolerating thicken liquids and is refusing. Discussed with pt importance of thicken liquids to avoid further aspiration and possible pneumonia. Pt was aware of risk but is requesting the diet changed to regular liquids. Recommend pt stick with naturally thicken foods like thick stews ,creamed soup, and carbonated beverages which may not contribute as readily to aspiration issues. Discussed with Inpt CONSUMER AFFAIRS DIRECTOR and Dr Lemus and they agreed with pt's awareness that by continuing to to drink thin liquids he has increased risk for aspiration pneumonia. Pt stated he understood risk. BK Nutrition Monitoring & Eval RD Patient Assessment Time: [address] Assessment Type: RD Education Patient Nutrition Acuity: 2-Moderate Follow Up Date: Sep 17, 2017 Nutritional Comment: 09/03 Pt admitted for chest pain and shortness of breath. Pt has PMHx significant for COPD, chronic back pain. Pt is on IMMANUEL/REG diet with 50% oral intake. Alb (2.8) and elevated random blood glucose (141). Continue to monitor pt progress, labs and encourage intake. MT 09/07 Pt continues on regular diet with 100% oral intake. Pt states that he does have a hard time swallowing liquids. Pt was observed by speech, they had recommended nectar thicken liquids. Pt has had a unintentional wt gain of 13#. Possible wt gain could be caused by fluid retention. Continue to monitor wt. Pt H/H has decreased, along with alb (2.1) and total protein (5.2). Add protein powered to appropriate foods, to help increase alb levels. Blood glucose has stabilized. Continue to monitor pt clinical progress, wt, labs and encourage intake. MT 09/11 Pt has had an a change to his diet. Pt will continue on a regular diet with thicken liquids. Pt has had hard time swallowing liquids, but has refused thicken liquids. Pt has been educated several times on the importance of drinking a thicken liquid rather than normal. Pt is consuming 100% of his meals, with both small and regular portion sizes. Pt continues to experience chest pain and has had fluid removed from his lungs several times. Pt had a chest tube placed on his right side. The tube was removed yesterday (09/10). Pt WBC has improved. BUN (22) and alb (2.2). Continue to add protein to appropriate foods to ensure pt meet protein needs and healing. Pt has had a wt loss of 6.5% since (09/07) possible wt loss could be caused by fluid loss. Continue to monitor pt progress, labs and encourage intake. -MT 09/13 Diet changed to Regular diet without thickening agent. KAITLYNN HUI Sep 13, 2017 14:06
--- NOTE | 2017-09-13 14:30 | Miscellaneous Provider Note ---
Miscellaneous Provider Note Note Pt is refusing thickened liquids. See dietary's notes for details. Will change to thin liquids, per his request. DARYL RING MD Sep 13, 2017 14:30
[2017-09-13 14:31] VITALS: BP 114/75
--- NOTE | 2017-09-13 15:07 | RADIOLOGY IMAGING REPORT ---
FACILITY: [facility] PATIENT NAME: Jaswinder Hall : 1945 MR: [id number] V: [id number] EXAM DATE: ORDERING PHYSICIAN: DARYL RING TECHNOLOGIST: Location: [facility] [place] Patient: Jaswinder Hall : 1945 Visit/Account:[id number] Date of Sevice: 09/13/2017 Exam type: PICC LINE INSERTION, PICC LINE PLACEMENT History: Need for IV therapy Comparison: None. Findings: Informed consent was obtained. The patient's left arm was prepped and draped in usual sterile fashio n. Local anesthesia was accomplished with 1% lidocaine. Utilizing both sonographic and fluoroscopic guidance a 40 cm long trimmed 5 [place] double lumen power PICC was inserted via the patent left basi lic vein with the distal tip resting in superior vena cava. Both lumens of the power PICC were flush ed with 5 mL of saline flush. The proximal portion PICC line was adhered patient's arm the sterile d ressing. The procedure was accomplished without apparent complication. Sonographic images were save d to PACS. The fluoroscopy dose area product was 20.91 micro-Brock per meter squared. IMPRESSION: 1. Successful placement of a 40 cm long trimmed 5 Yakut double lumen power PICC inserted via the pa tent left basilic vein with the distal tip resting in superior vena cava. Report Dictated By: Perla Darby MD at 09/13/2017 3:00 PM Report E-Signed By: Perla Darby MD at 09/13/2017 3:02 PM WSN:[email or web address]
--- NOTE | 2017-09-13 15:07 | RADIOLOGY IMAGING REPORT ---
FACILITY: [facility] PATIENT NAME: Jaswinder Hall : 1945 MR: [id number] V: [id number] EXAM DATE: ORDERING PHYSICIAN: DARYL RING TECHNOLOGIST: Location: [facility] Patient: Jaswinder Hall : 1945 Visit/Account:[id number] Date of Sevice: 09/13/2017 Exam type: PICC LINE INSERTION, PICC LINE PLACEMENT History: Need for IV therapy Comparison: None. Findings: Informed consent was obtained. The patient's left arm was prepped and draped in usual sterile fashio n. Local anesthesia was accomplished with 1% lidocaine. Utilizing both sonographic and fluoroscopic guidance a 40 cm long trimmed 5 Malay double lumen power PICC was inserted via the patent left basi lic vein with the distal tip resting in superior vena cava. Both lumens of the power PICC were flush ed with 5 mL of saline flush. The proximal portion PICC line was adhered patient's arm the sterile d ressing. The procedure was accomplished without apparent complication. Sonographic images were save d to PACS. The fluoroscopy dose area product was 20.91 micro-Brock per meter squared. IMPRESSION: 1. Successful placement of a 40 cm long trimmed 5 Malay double lumen power PICC inserted via the pa tent left basilic vein with the distal tip resting in superior vena cava. Report Dictated By: Perla Darby MD at 09/13/2017 3:00 PM Report E-Signed By: Perla Darby MD at 09/13/2017 3:02 PM WSN:[email or web address]
[2017-09-13 19:24] VITALS: BP 121/78
[2017-09-13] MEDS: SIMVASTATIN 20 MG TAB PO SCH (20:14)
[2017-09-13] MEDS: traZODone HCL 50 MG TAB PO PRN (22:39)
[2017-09-14] MEDS: IMIPENEM/CILASTA(*) 500MG VIAL 500 MG in NS(*) 0.9% 100 ML BAG 100 ML IVPB SCH ×5 (00:42→23:26)
[2017-09-14 02:38] VITALS: BP 106/61
[2017-09-14] MEDS: TIOTROPIUM BROM INH 18 MCG/CAP INH SCH (05:35)
[2017-09-14] MEDS: SALMETEROL/FLUTIC 100/50 1 INH INH SCH ×2 (05:35→17:05)
[2017-09-14 06:07] LABS: PLATELET COUNT, AUTOMATED 428 K/uL (150-450)
[2017-09-14 07:31] VITALS: BP 106/65
[2017-09-14] MEDS: POTASSIUM CHL 10 MEQ TABCR PO SCH ×2 (07:43→17:23)
[2017-09-14] MEDS: DOXYCYCLINE HYCL 100 MG VIAL 100 MG in NS(*) 0.9% 250 ML BAG 250 ML IV SCH ×2 (07:47→20:10)
[2017-09-14] MEDS: NS(*) 0.9% 250 ML BAG 250 ML IV PRN (09:11)
[2017-09-14] MEDS: ENOXAPARIN 40 MG/0.4ML SYR SC SCH (09:29)
[2017-09-14] MEDS: ASPIRIN 81 MG ENTERIC COATED PO SCH (09:30)
[2017-09-14] MEDS: FUROSEMIDE 40 MG/4 ML VIAL IVP SCH ×2 (09:30→14:06)
[2017-09-14] MEDS: NYSTATIN 5 ML UDCUP PO SCH ×4 (09:30→21:21)
[2017-09-14] MEDS: ALLOPURINOL 100 MG TAB PO SCH (09:31)
[2017-09-14] MEDS: GABAPENTIN 300 MG CAP PO SCH ×3 (09:31→21:21)
[2017-09-14] MEDS: MORPHINE 60 MG PO SCH ×2 (09:31→21:21)
[2017-09-14] MEDS: predniSONE 5 MG TAB PO SCH (09:31)
[2017-09-14] MEDS: DOCUSATE SODIUM 100 MG CAP PO SCH ×2 (09:31→21:00)
[2017-09-14] MEDS: guaiFENesin 600 MG TABCR PO SCH ×2 (09:31→21:21)
[2017-09-14] MEDS: DULoxetine HCL 30 MG CAPCR PO SCH ×2 (09:31→21:21)
[2017-09-14] MEDS: CARVEDILOL 3.125 MG TAB PO SCH ×2 (09:31→21:21)
[2017-09-14] MEDS: PANTOPRAZOLE SOD 40 MG TABEC PO SCH ×2 (09:31→21:21)
[2017-09-14] MEDS: buPROPion SR 150 MG TABCR PO SCH (09:31)
[2017-09-14 12:06] VITALS: BP 107/62
[2017-09-14 14:53] VITALS: BP 124/68
[2017-09-14 19:12] VITALS: BP 123/79
--- NOTE | 2017-09-14 20:03 | Hospitalist Progress Note ---
Subjective Progress Notes Subjective 09/11: Mr. Hall is a 72yo male with PMHx of COPD due to long standing smoking , CAD, HTN, Pulmonary HTN, BPH, Gout, Depression, GERD and Chronic back pain. He presented with acute dyspnea and pleuritic chest pain on 09/02/17. He found to have RLL pneumonia with pleural effusion. He received IV Primaxin and Doxycycline. He also underwent thoracentesis with chest tube also; 1L exudative fluid removed with high protein and high WBC but gram stain is negative yet. His WBC down from 25K to 13.7 today and he is afebrile. He is currently on Primaxin and Doxycycline. He is still requiring high oxygenation. He is up on the chair today and seems depressed due to his chronic diseases. He still has cough otherwise stable. 09/12: He slept well and feels better. He is afebrile and hemodynamically stable without any sig. complaint. His WBC are still high and he is on Primaxin, Doxycycline and Prednisone. His all cultures are negative. His BNP is 149. He responded well to the Lasix yesterday and his oxygenation has also improved. His current weight is 85kg. 09/14: He is feeling better today. He is afebrile and hemodynamically stable. He is on Primaxin and Doxycycline. He is getting his nebs and metanebs treatments. Patient Complains of: Neurological: No: Confusion, Weakness, Dizziness Cardiovascular: No: Chest Pain, Palpitations Respiratory: Cough, Shortness of Breath, No: Congestion Gastrointestinal: No Nausea, No Vomiting Genitourinary: No Dysuria, No Hematuria Musculoskeletal: No: Pain, Sprain, Strain Physical Exam Vital Signs Date Time Temp Pulse Resp B/P (MAP) Pulse Ox O2 Delivery O2 Flow Rate FiO2 09/14/17 19:12 97.8 78 22 123/79 (94) 89 High-Flow Nasal Cannula 8.0 09/12/17 04:08 75.0 Intake and Output 09/15/17 07:00 Intake Total 1432 ml Output Total 2125 ml Balance -693 ml Intake Oral 840 ml IV Total 592 ml Output Urine Total 2125 ml # Voids 1 General Appearance: Alert, Awake, No Acute Distress, Afebrile Neuro: No Gross deficits Eyes: PERRLA ENT: Normal Cardiovascular: Normal Rhythm & Peripheral Pulses Respiratory: Other (Bilateral basilar rales with decrease BS) Chest: No Masses GI: Soft and Non-Tender Extremities: Soft and Non Tender, Warm, Edema Integumentary: Generalized Fragile Skin Psych: Alert & Oriented X3, Appropriate Mood & Affect Result Diagram: 09/14/17 0551 09/14/17 0551 Monitor Interpretation: Normal Sinus Rhythm Assessment and Plan Problems: (1) Pneumonia Status: Acute Assessment & Plan: CT scan 09/06 showed bilateral infiltrates and an effusion on the right. He had over 900cc drained on 09/06. It appeared possibly to be an exudate (protein >50% of serum level). Culture is growing rare gram positive cocci. ID and sensitivity is pending - suspect this could easily be a contaminant. CXR 09/08 showed re-accumulation of the R pleural effusion and the patient felt "it coming back". Surgery placed a chest tube 09/08 - output has been slowing. He was initially on empiric treatment with IV ceftriaxone and doxycycline. Blood cultures have been negative. His antibiotics were changed to Primaxin and doxycycline on 09/07. He remains afebrile. WBC continues to improve. Hopefully, chest tube will come out soon. 09/11: I will continue his Primaxin and Doxycycline, I will try Lasix 40mg IV one dose and repeat CMP in am. I will check his BNP, CBC, Mag level in am. I will encourage ambulation today and possible transfer to medical floor in am. I will repeat CXR in am. 09/12; I will continue his antibiotics and decrease his Prednisone to 10mg po qd. I will use Lasix 20mg IV today. I will get CBC, BMP and CXR in am. I will transfer the patient to medical floor today for further management. 09/13: Afebrile. WBC slowly trending down. CXR about the same. Chest tube has been out since 09/10. Will continue Primaxin (started 09/06) and Doxycycline (started ). Will get a PICC line for presumed 7 more days of abx, and blood draws because staff is having difficulty getting IV's placed. Will ask OT/PT to see because of prolonged hospitalization and weakness. 09/14: I will continue his Lasix 40mg IV bid I will get BMP and CBC in am I will get CXR in am I will decrease his Prednisone to 5mg po qd I will continue his resp. management I will arrange home antibiotics and WATCH INSPECTOR Possible d/c in am (2) ARDS (adult respiratory distress syndrome) Status: Resolved Assessment & Plan: He had worsening oxygen requirements over the evening of 09/07. He had not tolerated BiPAP or Vapotherm. He has been receiving intermittent doses of IV Lasix with some improvements in his O2 requirement and CXR. Will repeat dose of Lasix 40mg IV today. 09/11: I will give Lasix 40mg IV one dose today. 09/13: Will start scheduled Lasix 40mg IV bidd. Potassium increased to help with presumed loss related to increasing Lasix. (3) COPD (chronic obstructive pulmonary disease) Status: Chronic Assessment & Plan: He is on chronic treatment with Advair and albuterol. He is also receiving oral prednisone. 09/11: I will start chest and pulse therapy in am by respiratory. 09/13: Continue prednisone. (4) Coronary artery disease Status: Chronic Assessment & Plan: He is on chronic treatment with aspirin and simvastatin. (5) Chronic back pain Status: Chronic Assessment & Plan: He is on chronic treatment with MS Contin 60mg PO BID, gabapentin, duloxetine. We have added back Percocet for breakthrough pain. Central Venous Access Medical Necessity for Access: Hemodynamic Monitoring, IV Access, Medication Administration Time Spent on Plan of Care: < 30 min Copies to: LEANNE DOWNING MD Exam Sepsis Risk: No Definite Risk Problem Qualifiers (1) Pneumonia: Pneumonia type: due to unspecified organism Laterality: right Lung location : upper lobe of lung Qualified Codes: J18.1 - Lobar pneumonia, unspecified organism SERA VUONG MD Sep 14, 2017 20:03
[2017-09-14] MEDS: SIMVASTATIN 20 MG TAB PO SCH (21:21)
[2017-09-15 04:07] VITALS: BP 104/51
[2017-09-15] MEDS: SALMETEROL/FLUTIC 100/50 1 INH INH SCH (05:25)
[2017-09-15] MEDS: TIOTROPIUM BROM INH 18 MCG/CAP INH SCH (05:25)
--- NOTE | 2017-09-15 05:59 | RADIOLOGY IMAGING REPORT ---
FACILITY: [facility] [place] PATIENT NAME: Jaswinder Hall : 1945 MR: [id number] V: [id number] EXAM DATE: ORDERING PHYSICIAN: SERA VUONG TECHNOLOGIST: Location: [facility] Patient: Jaswinder Hall : 1945 Visit/Account:[id number] Date of Sevice: 09/15/2017 PORTABLE CHEST: Indication: Follow-up evaluation of pneumonia. Technique: A single frontal film was obtained. Comparison: 09/13/2017 Lines and tubes: A PICC line is now present in the left upper extremity. The tip of the PICC line is in the SVC. Skeletal and soft tissue structures: Intact and unchanged. Heart and mediastinum: Stable. Lung asencio: There is persistent parenchymal consolidation at the right base, compatible with pneumon ia. There is minimal left basilar opacity. No new parenchymal abnormalities are identified. Pleural spaces: There is a persistent small right effusion. There is no evidence of pneumothorax. Impression: The new PICC line is in satisfactory position. The lung asencio are not significantly moscoso ged. Report Dictated By: Allen Burnette MD at 09/15/2017 5:53 AM Report E-Signed By: Allen Burnette MD at 09/15/2017 5:55 AM WSN:[id number]
[2017-09-15] MEDS: IMIPENEM/CILASTA(*) 500MG VIAL 500 MG in NS(*) 0.9% 100 ML BAG 100 ML IVPB SCH ×2 (06:02→12:00)
[2017-09-15 06:27] LABS: PLATELET COUNT, AUTOMATED 420 K/uL (150-450)
[2017-09-15] MEDS: DOXYCYCLINE HYCL 100 MG VIAL 100 MG in NS(*) 0.9% 250 ML BAG 250 ML IV SCH (08:39)
[2017-09-15] MEDS: POTASSIUM CHL 10 MEQ TABCR PO SCH (08:44)
[2017-09-15 08:48] VITALS: BP 112/63
[2017-09-15] MEDS: DOCUSATE SODIUM 100 MG CAP PO SCH (09:00)
[2017-09-15] MEDS: GABAPENTIN 300 MG CAP PO SCH (09:08)
[2017-09-15] MEDS: CARVEDILOL 3.125 MG TAB PO SCH (09:08)
[2017-09-15] MEDS: MORPHINE 60 MG PO SCH (09:08)
[2017-09-15] MEDS: predniSONE 5 MG TAB PO SCH (09:08)
[2017-09-15] MEDS: guaiFENesin 600 MG TABCR PO SCH (09:08)
[2017-09-15] MEDS: ASPIRIN 81 MG ENTERIC COATED PO SCH (09:08)
[2017-09-15] MEDS: ALLOPURINOL 100 MG TAB PO SCH (09:08)
[2017-09-15] MEDS: NYSTATIN 5 ML UDCUP PO SCH (09:09)
[2017-09-15] MEDS: FUROSEMIDE 40 MG/4 ML VIAL IVP SCH (09:09)
[2017-09-15] MEDS: ENOXAPARIN 40 MG/0.4ML SYR SC SCH (09:09)
[2017-09-15] MEDS: DULoxetine HCL 30 MG CAPCR PO SCH (09:09)
[2017-09-15] MEDS: PANTOPRAZOLE SOD 40 MG TABEC PO SCH (09:09)
[2017-09-15] MEDS: buPROPion SR 150 MG TABCR PO SCH (09:09)
[2017-09-15] MEDS ORDERED: POTA20TA10 PO (11:00)
[2017-09-15] MEDS ORDERED: CEF300 PO (11:00)
[2017-09-15] MEDS ORDERED: DOCU-202 PO (11:00)
[2017-09-15] MEDS ORDERED: PRED20TA6 PO (11:00)
[2017-09-15] MEDS ORDERED: [UNRECOGNIZED DRUG - CODE] IV (11:00)
--- NOTE | 2017-09-15 11:08 | Hospitalist Depart ---
Discharge Summary Reason for Hosp/Final Diag: (1) Pneumonia Status: Acute Hospital Course & Plan: Mr. Hall is a 72yo male with PMHx of COPD due to long standing smoking , CAD, HTN, Pulmonary HTN, BPH, Gout, Depression, GERD and Chronic back pain. He presented with acute dyspnea and pleuritic chest pain on 09/02/17. He found to have RLL pneumonia with pleural effusion. He received IV Primaxin and Doxycycline. He also underwent thoracentesis with chest tube also; 1L exudative fluid removed with high protein and high WBC but gram stain is negative yet. His WBC down from 25K to 13.7 today and he is afebrile. He is currently on Primaxin and Doxycycline. He is still requiring high oxygenation. He is up on the chair today and seems depressed due to his chronic diseases. He still has cough otherwise stable. 09/12: He slept well and feels better. He is afebrile and hemodynamically stable without any sig. complaint. His WBC are still high and he is on Primaxin, Doxycycline and Prednisone. His all cultures are negative. His BNP is 149. He responded well to the Lasix yesterday and his oxygenation has also improved. His current weight is 85kg. 09/14: He is feeling better today. He is afebrile and hemodynamically stable. He is on Primaxin and Doxycycline. He is getting his nebs and metanebs treatments. CT scan 09/06 showed bilateral infiltrates and an effusion on the right. He had over 900cc drained on 09/06. It appeared possibly to be an exudate (protein >50% of serum level). Culture is growing rare gram positive cocci. ID and sensitivity is pending - suspect this could easily be a contaminant. CXR 09/08 showed re-accumulation of the R pleural effusion and the patient felt "it coming back". Surgery placed a chest tube 09/08 - output has been slowing. He was initially on empiric treatment with IV ceftriaxone and doxycycline. Blood cultures have been negative. His antibiotics were changed to Primaxin and doxycycline on 09/07. He remains afebrile. WBC continues to improve. Hopefully, chest tube will come out soon. Plan: 09/11: I will continue his Primaxin and Doxycycline, I will try Lasix 40mg IV one dose and repeat CMP in am. I will check his BNP, CBC, Mag level in am. I will encourage ambulation today and possible transfer to medical floor in am. I will repeat CXR in am. 09/12; I will continue his antibiotics and decrease his Prednisone to 10mg po qd. I will use Lasix 20mg IV today. I will get CBC, BMP and CXR in am. I will transfer the patient to medical floor today for further management. 09/13: Afebrile. WBC slowly trending down. CXR about the same. Chest tube has been out since 09/10. Will continue Primaxin (started 09/06) and Doxycycline (started ). Will get a PICC line for presumed 7 more days of abx, and blood draws because staff is having difficulty getting IV's placed. Will ask OT/PT to see because of prolonged hospitalization and weakness. 09/14: I will continue his Lasix 40mg IV bid I will get BMP and CBC in am I will get CXR in am I will decrease his Prednisone to 5mg po qd I will continue his resp. management I will arrange home antibiotics and [employer] Possible d/c in am 09/15: He is afebrile and hemodynamically stable today without any significant complaint. He is feeling much better and back to his baseline status. He is being d/c'd to home with [employer]. He willl be d/c'd on Cefdinir 300mg po bid x7 days, Doxy 100mg po bidx7 days, Lasix 40mg po qd KCL 20meq po qd He should resume his home medications He should follow his PCP in 1-2 weeks (2) ARDS (adult respiratory distress syndrome) Status: Resolved Hospital Course & Plan: He had worsening oxygen requirements over the evening of 09/07. He had not tolerated BiPAP or Vapotherm. He has been receiving intermittent doses of IV Lasix with some improvements in his O2 requirement and CXR. Will repeat dose of Lasix 40mg IV today. 09/11: I will give Lasix 40mg IV one dose today. 09/13: Will start scheduled Lasix 40mg IV bidd. Potassium increased to help with presumed loss related to increasing Lasix. (3) COPD (chronic obstructive pulmonary disease) Status: Chronic Hospital Course & Plan: He is on chronic treatment with Advair and albuterol. He is also receiving oral prednisone. 09/11: I will start chest and pulse therapy in am by respiratory. 09/13: Continue prednisone. 09/15: He will continue Prednisone 5mg po qd for 10 days and stop. He should continue his home COPD meds (4) Coronary artery disease Status: Chronic Hospital Course & Plan: He is on chronic treatment with aspirin and simvastatin. (5) Chronic back pain Status: Chronic Hospital Course & Plan: He is on chronic treatment with MS Contin 60mg PO BID, gabapentin, duloxetine. We have added back Percocet for breakthrough pain. Departure Weight (Pounds): 191 Weight (Ounces): 9.0 Result Diagram: 09/15/1760109/15/17601 Condition: Improved Discharge: Home, Home Health PT/OT Follow Up For: PT For Strengthening, OT For ADL's, ST Evaluation and Treat Home Health RN Follow Up For: Nursing Assessment Home Health [facility] Follow Up For: ADL Assistance Time Spent: > 30 min Discharge Instructions Home Meds Active Scripts Allopurinol (ALLOPURINOL) 100 Mg Tablet, 1 TAB PO QDAY, #90 TAB 4 Refills TAKE 1 TABLET BY MOUTH EVERY DAY Prov:LEANNE DOWNING MD 08/22/17 Bupropion Hcl (BUPROPION HCL SR) 150 Mg Tablet.er, 1 TAB PO QDAY, #90 TAB 1 Refill Prov:LEANNE DOWNING MD 08/06/17 Oxycodone Hcl/Acetaminophen (OXYCODONE-ACETAMINOPHEN 10-325) 1 Each Tablet, 1 EACH PO TID Y for pain, #90 TAB refill 10/14/2017 Prov:LEANNE DOWNING MD 08/06/17 Morphine Sulfate (MORPHINE SULFATE ER) 60 Mg Tablet.er, 60 MG PO BID, #60 TAB 10/14/2017 Prov:LEANNE DOWNING MD 08/06/17 Tamsulosin Hcl (TAMSULOSIN HCL) 0.4 Mg Cap.er.24h, 2 CAP PO DAILY, #180 CAP 1 Refill Prov:LEANNE DOWNING MD 07/31/17 Trazodone Hcl (TRAZODONE HCL) 100 Mg Tablet, 100 MG PO QHS Y for insomnia, #30 TAB 6 Refills Prov:LEANNE DOWNING MD 4/30/18 Pantoprazole Sodium (PANTOPRAZOLE SODIUM) 40 Mg Tablet.dr, 40 MG PO BID, #180 TAB.SR 3 Refills Prov:LEANNE DOWNING MD 03/29/17 Carvedilol (CARVEDILOL) 3.125 Mg Tab, 1 TAB PO BID, #180 TAB 3 Refills TAKE 1 TABLET BY MOUTH TWICE A DAY Prov:LEANNE DOWNING MD 01/22/17 Gabapentin (GABAPENTIN) 300 Mg Capsule, 300 MG PO TID, #120 CAPSULE 6 Refills Prov:ROBB RUSH JR, MD 11/24/16 Simvastatin (SIMVASTATIN) 20 Mg Tablet, 1 TAB PO HS, #60 TAB 6 Refills Prov:LEANNE DOWNING MD 07/20/16 Oxygen (OXYGEN) Inha, 4-5 L INH q daily, #4 L Oxygen at 4-5L continuous and may increase to 6L with activity Prov:AURE MULLINS MD 12/29/15 Reported Medications Duloxetine HCl (Duloxetine HCl) 60 Mg Capsule.dr, 1 TAB PO BID 08/31/17 Fluticasone/Salmeterol (ADVAIR HFA 115-21 MCG INHALER) 12 Gm Hfa.aer.ad, 2 PUFF IH BID 04/09/17 Aspirin (ASPIR 81) 81 Mg Tablet.dr, 81 MG PO QDAY, TAB 03/15/17 Tiotropium Sheldon (SPIRIVA) 18 Mcg/Cap Inh, 18 MCG INH DAILY, INH 12/28/15 Multivitamin (MULTI VITAMIN DAILY) 1 Each Tablet, 1 EACH PO DAILY 07/17/14 Diet: Regular Activity: As Tolerated Copies to: LEANNE DOWNING MD; ISACC HU MD Venous Thromboembolism Antithrombotics Is Pt On Any Antithrombotics?: Yes (LOvenox) Problem Qualifiers (1) Pneumonia: Pneumonia type: due to unspecified organism Laterality: right Lung location : upper lobe of lung Qualified Codes: J18.1 - Lobar pneumonia, unspecified organism SERA VUONG MD Sep 15, 2017 11:08
[2017-09-15] MEDS ORDERED: FURO40TA35 PO (11:12)
[2017-09-15] MEDS ORDERED: [UNRECOGNIZED DRUG - CODE] PO (11:17)
== END 2017-09-15 13:05 | disposition home health service (06) | DRG 190 ==
LOC: ER 15:56 → MED 18:02 → ICU 09-06 11:19 → MED 09-12 13:15
PROVIDERS: ADMIT Internal Medicine; ATTEND Internal Medicine
PROC: 5A09357 Assistance with Respiratory Ventilation, Less than 24 Consecutive Hours, Continuous Positive Airway Pressure (ICD-10-PCS; 2017-09-05)
PROC: 0W9930Z Drainage of Right Pleural Cavity with Drainage Device, Percutaneous Approach (ICD-10-PCS; principal; 2017-09-08)
PROC: 02HV33Z Insertion of Infusion Device into Superior Vena Cava, Percutaneous Approach (ICD-10-PCS; 2017-09-13)
PROC: B548ZZA Ultrasonography of Superior Vena Cava, Guidance (ICD-10-PCS; 2017-09-13)
DX: J44.0 Chronic obstructive pulmonary disease with (acute) lower respiratory infection (principal); J18.1 Lobar pneumonia, unspecified organism; J80 Acute respiratory distress syndrome; J91.8 Pleural effusion in other conditions classified elsewhere; I25.10 Atherosclerotic heart disease of native coronary artery without angina pectoris; G89.29 Other chronic pain; E78.2 Mixed hyperlipidemia; F32.9 Major depressive disorder, single episode, unspecified; K59.09 Other constipation; D64.9 Anemia, unspecified; I12.9 Hypertensive chronic kidney disease with stage 1 through stage 4 chronic kidney disease, or unspecified chronic kidney disease; N18.9 Chronic kidney disease, unspecified; R91.1 Solitary pulmonary nodule; M85.80 Other specified disorders of bone density and structure, unspecified site; N40.0 Benign prostatic hyperplasia without lower urinary tract symptoms; N43.3 Hydrocele, unspecified; M1A.9XX0 Chronic gout, unspecified, without tophus (tophi); K40.90 Unilateral inguinal hernia, without obstruction or gangrene, not specified as recurrent; I27.20 Pulmonary hypertension, unspecified; K22.70 Barrett's esophagus without dysplasia; K21.9 Gastro-esophageal reflux disease without esophagitis; I25.2 Old myocardial infarction; Z88.8 Allergy status to other drugs, medicaments and biological substances; Z95.5 Presence of coronary angioplasty implant and graft; Z90.49 Acquired absence of other specified parts of digestive tract; Z87.891 Personal history of nicotine dependence
CPT/HCPCS: 36415; 36569; 71045; 71046; 71260; 71275; 76937; 82040; 82150; 82247; 82310; 82374; 82435; 82565; 82947; 83735; 83880; 83986; 84075; 84132; 84155; 84157; 84295; 84450; 84460; 84484; 84520; 85025; 85379; 85610; 85730; 87040; 87071; 87073; 87116; 87205; 88305; 89050; 93005; 93306; 94640; 94660; 94667; 94668; 97161; 97165; 99285; C1751; J0696; J0743; J1170; J1650; J1885; J1940; J2060; J2270; J2930; J3010; J3490; J3535; J7030; J7040; J7050; J7512; J7613; Q9967

== ENCOUNTER → 2017-09-02 | Outpatient (CLI) | payer MEDICARE, BC ==
[~2017-09-02] MED LIST changes: +DULO60CA7 PO
[2017-09-03 10:07] VITALS: BMI 28.9
== END ==
LOC: AMB 15:32
PROVIDERS: ATTEND Nurse Practitioner
DX: R07.1 Chest pain on breathing (principal); M54.9 Dorsalgia, unspecified; R09.02 Hypoxemia
CPT/HCPCS: A0425; A0427

== ENCOUNTER 2017-09-03 16:09 | Outpatient (RCR) | payer MEDICARE, BC ==
[2017-09-03 10:07] VITALS: BMI 28.9
[~2017-09-03 16:09] MED LIST changes: -TRAZ-163 PO; +TRAZ100T31 PO
[2017-09-15] MEDS ORDERED: PRED20TA6 PO (11:00)
[2017-09-15] MEDS ORDERED: CEF300 PO (11:00)
[2017-09-15] MEDS ORDERED: DOCU-202 PO (11:00)
[2017-09-15] MEDS ORDERED: POTA20TA10 PO (11:00)
[2017-09-15] MEDS ORDERED: [UNRECOGNIZED DRUG - CODE] IV (11:00)
[2017-09-15] MEDS ORDERED: FURO40TA35 PO (11:12)
[2017-09-15] MEDS ORDERED: [UNRECOGNIZED DRUG - CODE] PO (11:17)
--- NOTE | 2017-09-18 13:50 | Transitional Care Management ---
Assessment Visit Type: Telephone Visit Spoke with: Jaswinder Cardiac: WNL Respiratory: WNL Except Respiratory Comment: 09/18 He is on 7L O2, get SOB with activity, but is able to do what he needs around the house, taking frequent rest periods. He states that he recovers quickly. GI: Nutrition: WNL Wt Gain/Loss: WNL Weight Comment: 09/18 Taking lasix as ordered. Constipation?: No : WNL Comment: 09/18 Frequency due to lasix. Musculoskeletal, Exercise: WNL Except Musculoskeletal, Excercise Com: 09/18 Gets SOB with activity. He limits his activity and allows rest as needed. Mobility/Falls: WNL Mobility Comment: 09/18 Uses a walker safely. Integumentary: WNL Feeling of Well Being: WNL Socialization: WN Socialization Comment: 09/18 Lives at home with his . Pain/Management: WNL Pain/Management Comment: 09/18 Chronic pain. Scheduled Follow-Up with Provi: Yes (09/18 Calling his college administrator today.) Questions for Future PCP Visit: 09/18 Verify Advair schedule. Following Discharge Instructio: Yes TCM Discharge Criteria Medication Knowledge: 09/18 We reviewed his discharge medications. Transitional Care Comment: =09/03 pt uncomfortable at this time but agrees to program. Left him some information adn will visit w him in AM. 09/18 He is glad to be at home. On 7L O2, getting SOB with activity, but recovers quickly, we reviewed his home meds, and symptoms to notify a MD for, or return to the ER. He refused the home visit, "I am not really feeling up to having company." Copies to: LEANNE DOWNING MD, MICHAEL K Jun 19, 2018 13:50
--- NOTE | 2017-09-28 11:00 | Transitional Care Management ---
Assessment Cardiac: WNL Respiratory: WNL Except Respiratory Comment: 09/18 He is on 7L O2, get SOB with activity, but is able to do what he needs around the house, taking frequent rest periods. He states that he recovers quickly. GI: Nutrition: WNL Wt Gain/Loss: WNL Weight Comment: 09/18 Taking lasix as ordered. Constipation?: No : WNL Comment: 09/18 Frequency due to lasix. Musculoskeletal, Exercise: WNL Except Musculoskeletal, Excercise Com: 09/18 Gets SOB with activity. He limits his activity and allows rest as needed. Mobility/Falls: WN Mobility Comment: 09/18 Uses a walker safely. Integumentary: WNL Feeling of Well Being: WN Socialization: WN Socialization Comment: 09/18 Lives at home with his . Pain/Management: WN Pain/Management Comment: 09/18 Chronic pain. Scheduled Follow-Up with Provi: Yes (09/18 Calling his pulley man today.) Questions for Future PCP Visit: 09/18 Verify Advair schedule. Following Discharge Instructio: Yes TCM Discharge Criteria Medication Knowledge: 09/18 We reviewed his discharge medications. Transitional Care Comment: =09/03 pt uncomfortable at this time but agrees to program. Left him some information adn will visit w him in AM. 09/18 He is glad to be at home. On 7L O2, getting SOB with activity, but recovers quickly, we reviewed his home meds, and symptoms to notify a MD for, or return to the ER. He refused the home visit, "I am not really feeling up to having company." 09/21/ PVR post CODE Blue 09/25 No answer. 09/28 Unable to contact DEMI LIRA Sep 28, 2017 11:00
--- NOTE | 2017-10-15 14:03 | Transitional Care Management ---
Assessment Visit Type: Telephone Visit (10/15) Cardiac: WNL Respiratory: WNL Except Respiratory Comment: 09/18 He is on 7L O2, get SOB with activity, but is able to do what he needs around the house, taking frequent rest periods. He states that he recovers quickly. 10/15 O2 5L 24/7 Always SOB but "think I'm doing better" "I need freq rest periods. I Have inhalers that I can use and that helps most of the time" GI: Nutrition: WNL Wt Gain/Loss: WNL Weight Comment: 09/18 Taking lasix as ordered. 10/15 cont w Lasix as directed Constipation?: No : WNL Comment: 09/18 Frequency due to lasix. Musculoskeletal, Exercise: WNL Except Musculoskeletal, Excercise Com: 09/18 Gets SOB with activity. He limits his activity and allows rest as needed. 10/15 feeling very weak and is doing PT for strengthening . I guess I'm doing better-still need to limit activity and rest freq" Mobility/Falls: WNL Mobility Comment: 09/18 Uses a walker safely. 10/18 continues use of walker for stability and safety Integumentary: WNL Feeling of Well Being: WNL Socialization: WNL Socialization Comment: 09/18 Lives at home with his . Pain/Management: WNL Pain/Management Comment: 09/18 Chronic pain. 10/15 chronic px and I use the pain meds as directed Scheduled Follow-Up with Provi: Yes (09/18 Calling his pallet assembler today. Appt w Dr Rodriguez 10/17 ) Questions for Future PCP Visit: 09/18 Verify Advair schedule. Following Discharge Instructio: Yes TCM Discharge Criteria Medication Knowledge: 09/18 We reviewed his discharge medications. Transitional Care Comment: =09/03 pt uncomfortable at this time but agrees to program. Left him some information adn will visit w him in AM. 09/18 He is glad to be at home. On 7L O2, getting SOB with activity, but recovers quickly, we reviewed his home meds, and symptoms to notify a MD for, or return to the ER. He refused the home visit, "I am not really feeling up to having company." 09/21/to PVR post CODE Blue 09/25 No answer. 09/28 Unable to contact 10/15 Pt was sent to [facility] last of August and then was transferred to [facility]-he is not sure why but when asked what they did for him he stated-"changed some of my meds and did lots of teaching on breathing, PT and when at rest. Not real sure I was transferred to [place]. I have been home a little over a week and to see Dr Rodriguez later this week." When questioned how he was feeling his comment is "nothing has really changed-still have difficult times w my breathing need to rest freeeeeequently and use my inhalers. " Copies to: LEANNE RODRIGUEZ MD, JOAN Oct 15, 2017 14:03
--- NOTE | 2017-10-25 13:05 | Transitional Care Management ---
Assessment Cardiac: WNL Respiratory: WNL Except Respiratory Comment: 09/18 He is on 7L O2, get SOB with activity, but is able to do what he needs around the house, taking frequent rest periods. He states that he recovers quickly. 10/15 O2 5L 24/7 Always SOB but "think I'm doing better" "I need freq rest periods. I Have inhalers that I can use and that helps most of the time" GI: Nutrition: WNL Wt Gain/Loss: WNL Weight Comment: 09/18 Taking lasix as ordered. 10/15 cont w Lasix as directed Constipation?: No : WNL Comment: 09/18 Frequency due to lasix. Musculoskeletal, Exercise: WNL Except Musculoskeletal, Excercise Com: 09/18 Gets SOB with activity. He limits his activity and allows rest as needed. 10/15 feeling very weak and is doing PT for strengthening . I guess I'm doing better-still need to limit activity and rest freq" Mobility/Falls: WNL Mobility Comment: 09/18 Uses a walker safely. 10/18 continues use of walker for stability and safety Integumentary: WNL Feeling of Well Being: WNL Socialization: WNL Socialization Comment: 09/18 Lives at home with his . Pain/Management: WNL Pain/Management Comment: 09/18 Chronic pain. 10/15 chronic px and I use the pain meds as directed Scheduled Follow-Up with Provi: Yes (09/18 Calling his advertising sales executive today. Appt w Dr Rodriguez 10/17 ) Questions for Future PCP Visit: 09/18 Verify Advair schedule. Following Discharge Instructio: Yes TCM Discharge Criteria Medication Knowledge: 09/18 We reviewed his discharge medications. Transitional Care Comment: =09/03 pt uncomfortable at this time but agrees to program. Left him some information adn will visit w him in AM. 09/18 He is glad to be at home. On 7L O2, getting SOB with activity, but recovers quickly, we reviewed his home meds, and symptoms to notify a MD for, or return to the ER. He refused the home visit, "I am not really feeling up to having company." 09/21/to PVR post CODE Blue 09/25 No answer. 09/28 Unable to contact 10/15 Pt was sent to [facility] last of August and then was transferred to [facility]-he is not sure why but when asked what they did for him he stated-"changed some of my meds and did lots of teaching on breathing, PT and when at rest. Not real sure I was transferred to [place]. I have been home a little over a week and to see Dr Rodriguez later this week." When questioned how he was feeling his comment is "nothing has really changed-still have difficult times w my breathing need to rest freeeeeequently and use my inhalers. " 10/23 left message 10/25 answered phone in PT; states "I'm ok" MARIO SALINAS Oct 25, 2017 13:05
--- NOTE | 2017-10-30 13:13 | Transitional Care Management ---
Assessment Cardiac: WNL Respiratory: WNL Except Respiratory Comment: 09/18 He is on 7L O2, get SOB with activity, but is able to do what he needs around the house, taking frequent rest periods. He states that he recovers quickly. 10/15 O2 5L 24/7 Always SOB but "think I'm doing better" "I need freq rest periods. I Have inhalers that I can use and that helps most of the time" GI: Nutrition: WNL Wt Gain/Loss: WNL Weight Comment: 09/18 Taking lasix as ordered. 10/15 cont w Lasix as directed Constipation?: No : WNL Comment: 09/18 Frequency due to lasix. Musculoskeletal, Exercise: WNL Except Musculoskeletal, Excercise Com: 09/18 Gets SOB with activity. He limits his activity and allows rest as needed. 10/15 feeling very weak and is doing PT for strengthening . I guess I'm doing better-still need to limit activity and rest freq" Mobility/Falls: WNL Mobility Comment: 09/18 Uses a walker safely. 10/18 continues use of walker for stability and safety Integumentary: WNL Feeling of Well Being: WNL Socialization: WNL Socialization Comment: 09/18 Lives at home with his . Pain/Management: WNL Pain/Management Comment: 09/18 Chronic pain. 10/15 chronic px and I use the pain meds as directed Scheduled Follow-Up with Provi: Yes (09/18 Calling his senior credit officer today. Appt w Dr Rodriguez 10/17 ) Questions for Future PCP Visit: 09/18 Verify Advair schedule. Following Discharge Instructio: Yes TCM Discharge Criteria Medication Knowledge: 09/18 We reviewed his discharge medications. Transitional Care Comment: =09/03 pt uncomfortable at this time but agrees to program. Left him some information adn will visit w him in AM. 09/18 He is glad to be at home. On 7L O2, getting SOB with activity, but recovers quickly, we reviewed his home meds, and symptoms to notify a MD for, or return to the ER. He refused the home visit, "I am not really feeling up to having company." 09/21/to PVR post CODE Blue 09/25 No answer. 09/28 Unable to contact 10/15 Pt was sent to [facility] last of August and then was transferred to [facility]-he is not sure why but when asked what they did for him he stated-"changed some of my meds and did lots of teaching on breathing, PT and when at rest. Not real sure I was transferred to [place]. I have been home a little over a week and to see Dr Rodriguez later this week." When questioned how he was feeling his comment is "nothing has really changed-still have difficult times w my breathing need to rest freeeeeequently and use my inhalers. " 10/23 left message 10/25 answered phone in PT; states "I'm ok" 10/30 Left message. CARYN SALAZAR Oct 30, 2017 13:13
[2017-11-05] MEDS ORDERED: ALBU8.5H IH (15:55)
--- NOTE | 2017-11-06 14:17 | Transitional Care Management ---
Assessment Cardiac: WNL Respiratory: WNL Except Respiratory Comment: 09/18 He is on 7L O2, get SOB with activity, but is able to do what he needs around the house, taking frequent rest periods. He states that he recovers quickly. 10/15 O2 5L 24/7 Always SOB but "think I'm doing better" "I need freq rest periods. I Have inhalers that I can use and that helps most of the time" GI: Nutrition: WNL Wt Gain/Loss: WNL Weight Comment: 09/18 Taking lasix as ordered. 10/15 cont w Lasix as directed Constipation?: No : WNL Comment: 09/18 Frequency due to lasix. Musculoskeletal, Exercise: WNL Except Musculoskeletal, Excercise Com: 09/18 Gets SOB with activity. He limits his activity and allows rest as needed. 10/15 feeling very weak and is doing PT for strengthening . I guess I'm doing better-still need to limit activity and rest freq" Mobility/Falls: WNL Mobility Comment: 09/18 Uses a walker safely. 10/18 continues use of walker for stability and safety Integumentary: WNL Feeling of Well Being: WNL Socialization: WNL Socialization Comment: 09/18 Lives at home with his . Pain/Management: WNL Pain/Management Comment: 09/18 Chronic pain. 10/15 chronic px and I use the pain meds as directed Scheduled Follow-Up with Provi: Yes (09/18 Calling his crime scene technician today. Appt w Dr Rodriguez 10/17 ) Questions for Future PCP Visit: 09/18 Verify Advair schedule. Following Discharge Instructio: Yes TCM Discharge Criteria Medication Knowledge: 09/18 We reviewed his discharge medications. Transitional Care Comment: =09/03 pt uncomfortable at this time but agrees to program. Left him some information adn will visit w him in AM. 09/18 He is glad to be at home. On 7L O2, getting SOB with activity, but recovers quickly, we reviewed his home meds, and symptoms to notify a MD for, or return to the ER. He refused the home visit, "I am not really feeling up to having company." 09/21/to PVR post CODE Blue 09/25 No answer. 09/28 Unable to contact 10/15 Pt was sent to [facility] last of August and then was transferred to [facility]-he is not sure why but when asked what they did for him he stated-"changed some of my meds and did lots of teaching on breathing, PT and when at rest. Not real sure I was transferred to [place]. I have been home a little over a week and to see Dr Rodriguez later this week." When questioned how he was feeling his comment is "nothing has really changed-still have difficult times w my breathing need to rest freeeeeequently and use my inhalers. " 10/23 left message 10/25 answered phone in PT; states "I'm ok" 10/30 Left message. 11/02, 11/03 called left message requesting return call. 11/06 no return call; pt discharged MARIO SALINAS Nov 06, 2017 14:17
== END 2017-11-06 14:47 | disposition home or self-care (01) ==
LOC: TCM 16:09
PROVIDERS: ATTEND Nurse Practitioner
DX: Z02.9 Encounter for administrative examinations, unspecified (principal)

== ENCOUNTER 2017-09-18 14:41 | Emergency (ER) | payer MEDICARE, BC ==
[2017-09-18] MEDS ORDERED: LEVOPHED KIT (*) 1 IVSOL 1 KIT IV ONE (15:05)
[2017-09-18 15:19] LABS: PLATELET COUNT, AUTOMATED 578 K/uL (150-450)
[2017-09-18 15:27] LABS: INR 1.17
--- NOTE | 2017-09-18 15:45 | RADIOLOGY IMAGING REPORT ---
FACILITY: [facility] - [place] PATIENT NAME: Jaswinder Hall : 1945 MR: [id number] V: [id number] EXAM DATE: ORDERING PHYSICIAN: SANDI ZARATE TECHNOLOGIST: Location: [facility] [place] Patient: Jaswinder Hall : 1945 Visit/Account:[id number] Date of Sevice: 09/18/2017 CHEST SINGLE AP Additional pertinent History: , CODE BLUE COMPARISON STUDIES: none FINDINGS: Support lines and catheters: EKG wire leads Lungs and Pleura: Parenchymal opacity in the right lower lung partially obscuring the medial aspect of the right hemidiaphragm. Blunting of the right costophrenic angle Heart and vasculature: Heart is mildly enlarged. Yumi and Mediastinum: Negative. Bones and Chest wall: Negative. Upper Abdomen: Negative. IMPRESSION: 1. Parenchymal opacity in the right lower lung field. Infiltrate from aspiration possible. Developing pneumonic infiltrate not excluded. Blunting of the right costophrenic angle suggests effusion. Report Dictated By: Bjorn Clemens MD at 09/18/2017 3:38 PM Report E-Signed By: Bjorn Clemens MD at 09/18/2017 3:40 PM WSN:[id number]
[2017-09-18] MEDS ORDERED: NS 0.9% 25 ML BAG 50 ML ONE (15:50)
[2017-09-18] MEDS ORDERED: IOPAMIDOL 76% 75 ML INFUS BTL 75 ML ONE (15:50)
--- NOTE | 2017-09-18 15:54 | EKG ---
FACILITY: [facility] PATIENT NAME: STEPHANIE BURTONXVIII : [id number] MR: [id number] V: [id number] EXAM DATE: ORDERING PHYSICIAN: SANDI ZARATE TECHNOLOGIST: Test Reason : Blood Pressure : / mmHG Vent. Rate : 074 BPM Atrial Rate : 074 BPM P-R Int : 180 ms QRS Dur : 098 ms QT Int : 460 ms P-R-T Axes : 049 044 041 degrees QTc Int : 510 ms Sinus rhythm Nonspecific interventricular conduction delay Nonspecific ST-T findings Prolonged QT Abnormal ECG No previous ECGs available Confirmed by AURE MULLINS ([id number] on 09/18/2017 4:06:22 PM Referred By: Confirmed By:AURE MULLINS
--- NOTE | 2017-09-18 16:10 | ER Report ---
History and Physical Time Seen By : 16:08 ALEXYS/GOLDIE CHIEF COMPLAINT: Postcardiac arrest Jaswinder Hall : 1945 HISTORY OF PRESENT ILLNESS: Patient is a 72-year-old male here status post cardiac arrest while at home. Per patient's , the patient became acutely short of breath and subsequently became unresponsive while she was on the phone with EMS. Patient recently was admitted to the hospital and discharged approximately 2 days ago after being treated for COPD exacerbation. EMS performed 2 cycles of CPR with 2 doses of epinephrine with ROSC. Patient was in normal sinus rhythm at time of evaluation the emergency department. Patient arrived with a Irving tube in place and 2 intraosseous access devices in place. Fluids were administered via pressure bag, norepinephrine was administered. Patient family denies trauma, fevers, headache, AMS. REVIEW OF SYSTEMS: Unable to obtain due to mental status Constitutional Vital Sign - Last 24 Hours 09/18/17 09/18/17 09/18/17 09/18/17 14:41 14:42 14:43 14:45 B/P (MAP) 90/51 (64) 86/51 (63) 114/104 (107) 115/106 (109) 09/18/17 09/18/17 09/18/17 09/18/17 14:48 14:50 14:51 14:53 Pulse 64 Resp 21 B/P (MAP) 118/68 (85) 136/45 (75) 70/34 (46) Pulse Ox 100 09/18/17 09/18/17 09/18/17 09/18/17 14:56 14:57 14:59 15:00 Pulse 63 Resp 14 B/P (MAP) 73/48 (56) 76/43 (54) 81/45 (57) Pulse Ox 95 09/18/17 09/18/17 09/18/17 09/18/17 15:01 15:02 15:03 15:04 Pulse 61 Resp 13 B/P (MAP) 77/51 (60) 78/55 (63) 81/53 (62) Pulse Ox 95 09/18/17 09/18/17 09/18/17 09/18/17 15:05 15:07 15:08 15:10 B/P (MAP) 105/57 (73) 105/57 (73) 102/61 (75) 115/67 (83) 6/19/18 6/19/18 6/19/18 6/19/18 15:11 15:13 15:14 15:15 Pulse 72 115 118 Resp 25 B/P (MAP) 121/67 (85) 132/73 (92) 136/79 (98) 149/105 (120) 146/111 (123) Pulse Ox 96 6/19/18 6/19/18 6/19/18 6/19/18 15:16 15:17 15:19 15:20 Pulse 74 Resp 11 B/P (MAP) 141/80 (100) 143/77 (99) 146/79 (101) 144/77 (99) Pulse Ox 99 6/19/18 6/19/18 6/19/18 6/19/18 15:20 15:22 15:23 15:25 B/P (MAP) 141/77 (98) 144/73 (96) 144/76 (98) FiO2 100.0 6/19/18 6/19/18 6/19/18 6/19/18 15:26 15:28 15:29 15:31 Pulse 69 68 Resp 10 16 B/P (MAP) 138/74 (95) 139/72 (94) 137/73 (94) 136/73 (94) Pulse Ox 100 99 6/19/18 6/19/18 6/19/18 6/19/18 15:32 15:33 15:34 15:35 B/P (MAP) 139/75 (96) 144/77 (99) 140/76 (97) FiO2 80.0 6/19/18 6/19/18 6/19/18 6/19/18 15:36 15:37 15:39 15:40 Pulse 69 Resp 18 B/P (MAP) 139/74 (95) 142/72 (95) 143/71 (95) Pulse Ox 98 6/19/18 6/19/18 6/19/18 6/19/18 15:41 15:42 15:43 15:45 Pulse 65 Resp 15 B/P (MAP) 141/72 (95) 142/75 (97) 143/74 (97) Pulse Ox 97 6/19/18 6/19/18 6/19/18 6/19/18 15:46 15:48 15:49 15:51 Pulse 66 68 Resp 16 12 B/P (MAP) 141/75 (97) 143/75 (97) 145/75 (98) 146/75 (98) Pulse Ox 96 94 6/19/18 6/19/18 6/19/18 6/19/18 15:53 15:55 15:56 15:58 Pulse 66 Resp 10 B/P (MAP) 141/75 (97) 145/75 (98) 145/77 (99) 141/73 (95) Pulse Ox 94 6/19/18 6/19/18 6/19/18 6/19/18 16:00 16:01 16:03 16:08 Pulse 62 63 70 Resp 14 16 B/P (MAP) 149/77 (101) 148/76 (100) 125/67 (86) Pulse Ox 94 94 6/19/18 6/19/18 6/19/18 6/19/18 16:10 16:11 16:13 16:14 Pulse 70 Resp 7 B/P (MAP) 122/65 (84) 122/64 (83) 123/64 (83) 123/64 (83) Pulse Ox 94 6/19/18 6/19/18 6/19/18 6/19/18 16:16 16:17 16:18 16:19 Pulse 69 Resp 5 B/P (MAP) 125/66 (85) 125/66 (85) 127/66 (86) Pulse Ox 94 6/19/18 6/19/18 6/19/18 6/19/18 16:20 16:50 16:50 16:51 Pulse 79 79 Resp 25 25 B/P (MAP) 127/68 (87) 118/64 Pulse Ox 93 93 6/19/18 6/19/18 6/19/18 6/19/18 16:51 16:55 16:55 17:00 Pulse 74 74 70 Resp 10 10 15 B/P (MAP) 118/64 (82) 131/70 Pulse Ox 94 94 93 6/19/18 6/19/18 6/19/18 6/19/18 17:00 17:05 17:05 17:10 Pulse 70 66 66 66 Resp 15 15 15 14 B/P (MAP) 131/70 (90) Pulse Ox 93 93 93 94 6/19/18 6/19/18 6/19/18 6/19/18 17:15 17:15 17:20 17:20 Pulse 65 65 65 65 Resp 15 15 16 16 Pulse Ox 93 93 93 93 6/19/18 6/19/18 6/19/18 6/19/18 17:25 17:25 17:30 17:30 Pulse 62 62 56 56 Resp 14 14 15 15 B/P (MAP) 147/77 (100) 147/77 Pulse Ox 94 94 93 93 6/19/18 6/19/18 6/19/18 6/19/18 17:35 17:35 17:45 17:45 Pulse 62 62 62 62 Resp 15 15 13 13 Pulse Ox 93 93 94 94 6/19/18 6/19/18 6/19/18 6/19/18 17:50 17:50 17:55 17:55 Pulse 63 63 56 56 Resp 13 13 18 18 Pulse Ox 94 94 94 94 6/19/18 6/19/18 6/19/18 6/19/18 18:00 18:00 18:05 18:05 Pulse 107 107 Resp 28 28 17 17 B/P (MAP) 116/65 (82) 116/65 Pulse Ox 82 82 90 90 6/19/18 6/19/18 6/19/18 6/19/18 18:10 18:10 18:15 18:15 Pulse 105 105 101 101 Resp 6 6 15 15 Pulse Ox 94 94 94 94 6/19/18 6/19/18 6/19/18 6/19/18 18:20 18:20 18:25 18:25 Pulse 102 102 94 94 Resp 16 16 16 16 B/P (MAP) 160/87 Pulse Ox 93 93 94 94 6/19/18 18:30 Pulse 92 Resp 16 B/P (MAP) 160/87 (111) Pulse Ox 93 Physical Exam General Appearance: Intubated, no spontaneous movements Eyes: 3 mm sluggish ENT, Mouth: ETT in place, dried blood around lips Respiratory: There are no retractions, lungs are clear to auscultation. Cardiovascular: Regular rate and rhythm. Gastrointestinal: Abdomen is soft and non tender, no masses, bowel sounds normal. Neurological: No spontaneous movements Skin: Warm and dry, no rashes. Musculoskeletal: Neck is supple DIFFERENTIAL DIAGNOSIS: After history and physical exam differential diagnosis was considered for PE, cardiac arrest, hypovolemic shock, intracranial hemorrhage. Medical Decision Making Data Points Result Diagram: 09/18/17 1445 09/18/17 1445 Laboratory Hematology Test 09/18/17 14:45 09/18/17 15:18 Red Blood Count 3.10 M/uL (4.00-5.60) Mean Corpuscular Volume 90.1 fL (80.0-96.0) Mean Corpuscular Hemoglobin 27.4 pg (26.0-33.0) Mean Corpuscular Hemoglobin Concent 30.4 g/dL (32.0-36.0) Red Cell Distribution Width 17.9 % (11.5-14.5) Mean Platelet Volume 8.2 fL (7.2-11.1) Neutrophils (%) (Auto) 81.5 % (39.4-72.5) Lymphocytes (%) (Auto) 13.9 % (17.6-49.6) Monocytes (%) (Auto) 4.1 % (4.1-12.4) Eosinophils (%) (Auto) 0.1 % (0.4-6.7) Basophils (%) (Auto) 0.4 % (0.3-1.4) Nucleated RBC Relative Count (auto) 0.0 /100WBC Neutrophils # (Auto) 17.5 K/uL (2.0-7.4) Lymphocytes # (Auto) 3.0 K/uL (1.3-3.6) Monocytes # (Auto) 0.9 K/uL (0.3-1.0) Eosinophils # (Auto) 0.0 K/uL (0.0-0.5) Basophils # (Auto) 0.1 K/uL (0.0-0.1) Nucleated RBC Absolute Count (auto) 0.00 K/uL Peripheral Blood Smear Yes Y/N Prothrombin Time 15.0 seconds (12.0-14.4) Prothromb Time International Ratio 1.17 Activated Partial Thromboplast Time 28 seconds (23-35) D-Dimer Quantitative (PE/DVT) 7.36 ug/ml (0-0.50) Blood Gas Puncture Site Femoral Blood Gas Patient Temperature Unknown DEGREES Arterial Blood pH 7.43 (7.35-7.45) Arterial Blood Partial Pressure CO2 34 mmHg (32-37) Arterial Blood Partial Pressure O2 189 mmHg (60-80) Arterial Blood HCO3 23 mmol/L (20-26) Arterial Blood Oxygen Saturation 100 % (92-100) Arterial Blood Base Excess -1.0 mmol/L Rickey Test Nt avail Oxygen Liters/Minute Unknown Sodium Level 137 mmol/L (137-145) Potassium Level 4.7 mmol/L (3.5-5.0) Chloride Level 94 mmol/L (98-107) Carbon Dioxide Level 21 mmol/L (22-30) Blood Urea Nitrogen 22 mg/dl (9-21) Creatinine 1.20 mg/dl (0.66-1.25) Glomerular Filtration Rate Calc 59.9 Random Glucose 171 mg/dl (75-110) Lactate 11.2 mmol/L (0.7-2.1) Calcium Level 8.0 mg/dl (8.4-10.2) Total Bilirubin 0.3 mg/dl (0.2-1.3) Aspartate Amino Transf (AST/SGOT) 27 U/L (0-35) Alanine Aminotransferase (ALT/SGPT) 20 U/L (0-56) Alkaline Phosphatase 131 U/L (0-126) Ammonia < 9 UMOL/L (9-33) Troponin I < 0.012 ng/ml B-Type Natriuretic Peptide 402 pg/ml (0-100) Total Protein 5.9 g/dl (6.3-8.2) Albumin 2.6 g/dl (3.5-5.0) Amylase Level 32 U/L (0-110) Lipase 47 U/L (23-300) Serum Alcohol < 10 mg/dl Urine Color Yellow Urine Clarity Clear Urine pH 6.0 pH (4.8-9.5) Urine Specific Barnett 1.012 Urine Protein 30 mg/dL (NEGATIVE) Urine Glucose (UA) Negative mg/dL (NEGATIVE) Urine Ketones Trace mg/dL (NEGATIVE) Urine Blood Negative (NEGATIVE) Urine Nitrite Negative (NEGATIVE) Urine Bilirubin Negative (NEGATIVE) Urine Urobilinogen Negative mg/dL (0.2-1.9) Urine Leukocyte Esterase Negative (NEGATIVE) Urine RBC 10 /HPF (0-2/HPF) Urine WBC 4 /HPF (0-5/HPF) Urine Squamous Epithelial Cells None /LPF (NONE-FEW) Urine Bacteria Negative /HPF (NONE-FEW) Urine Hyaline Casts Few /LPF (NONE-FEW) Urine Mucus Few /HPF (NONE-FEW) Urine Opiates Screen Positive Urine Barbiturates Screen Negative Ur Tricyclic Antidepressants Screen Negative Urine Phencyclidine Screen Negative Urine Amphetamines Screen Negative Urine Benzodiazepines Screen Negative Urine Cocaine Screen Negative Urine Cannabinoids Screen Negative Chemistry Test 09/18/17 14:45 09/18/17 15:18 White Blood Count 21.4 k/uL (4.5-11.0) Red Blood Count 3.10 M/uL (4.00-5.60) Hemoglobin 8.5 g/dL (14.0-18.0) Hematocrit 28.0 % (42.0-52.0) Mean Corpuscular Volume 90.1 fL (80.0-96.0) Mean Corpuscular Hemoglobin 27.4 pg (26.0-33.0) Mean Corpuscular Hemoglobin Concent 30.4 g/dL (32.0-36.0) Red Cell Distribution Width 17.9 % (11.5-14.5) Platelet Count 578 K/uL (150-450) Mean Platelet Volume 8.2 fL (7.2-11.1) Neutrophils (%) (Auto) 81.5 % (39.4-72.5) Lymphocytes (%) (Auto) 13.9 % (17.6-49.6) Monocytes (%) (Auto) 4.1 % (4.1-12.4) Eosinophils (%) (Auto) 0.1 % (0.4-6.7) Basophils (%) (Auto) 0.4 % (0.3-1.4) Nucleated RBC Relative Count (auto) 0.0 /100WBC Neutrophils # (Auto) 17.5 K/uL (2.0-7.4) Lymphocytes # (Auto) 3.0 K/uL (1.3-3.6) Monocytes # (Auto) 0.9 K/uL (0.3-1.0) Eosinophils # (Auto) 0.0 K/uL (0.0-0.5) Basophils # (Auto) 0.1 K/uL (0.0-0.1) Nucleated RBC Absolute Count (auto) 0.00 K/uL Peripheral Blood Smear Yes Y/N Prothrombin Time 15.0 seconds (12.0-14.4) Prothromb Time International Ratio 1.17 Activated Partial Thromboplast Time 28 seconds (23-35) D-Dimer Quantitative (PE/DVT) 7.36 ug/ml (0-0.50) Blood Gas Puncture Site Femoral Blood Gas Patient Temperature Unknown DEGREES Arterial Blood pH 7.43 (7.35-7.45) Arterial Blood Partial Pressure CO2 34 mmHg (32-37) Arterial Blood Partial Pressure O2 189 mmHg (60-80) Arterial Blood HCO3 23 mmol/L (20-26) Arterial Blood Oxygen Saturation 100 % (92-100) Arterial Blood Base Excess -1.0 mmol/L Rickey Test Nt avail Oxygen Liters/Minute Unknown Glomerular Filtration Rate Calc 59.9 Lactate 11.2 mmol/L (0.7-2.1) Calcium Level 8.0 mg/dl (8.4-10.2) Total Bilirubin 0.3 mg/dl (0.2-1.3) Aspartate Amino Transf (AST/SGOT) 27 U/L (0-35) Alanine Aminotransferase (ALT/SGPT) 20 U/L (0-56) Alkaline Phosphatase 131 U/L (0-126) Ammonia < 9 UMOL/L (9-33) Troponin I < 0.012 ng/ml B-Type Natriuretic Peptide 402 pg/ml (0-100) Total Protein 5.9 g/dl (6.3-8.2) Albumin 2.6 g/dl (3.5-5.0) Amylase Level 32 U/L (0-110) Lipase 47 U/L (23-300) Serum Alcohol < 10 mg/dl Urine Color Yellow Urine Clarity Clear Urine pH 6.0 pH (4.8-9.5) Urine Specific Barnett 1.012 Urine Protein 30 mg/dL (NEGATIVE) Urine Glucose (UA) Negative mg/dL (NEGATIVE) Urine Ketones Trace mg/dL (NEGATIVE) Urine Blood Negative (NEGATIVE) Urine Nitrite Negative (NEGATIVE) Urine Bilirubin Negative (NEGATIVE) Urine Urobilinogen Negative mg/dL (0.2-1.9) Urine Leukocyte Esterase Negative (NEGATIVE) Urine RBC 10 /HPF (0-2/HPF) Urine WBC 4 /HPF (0-5/HPF) Urine Squamous Epithelial Cells None /LPF (NONE-FEW) Urine Bacteria Negative /HPF (NONE-FEW) Urine Hyaline Casts Few /LPF (NONE-FEW) Urine Mucus Few /HPF (NONE-FEW) Urine Opiates Screen Positive Urine Barbiturates Screen Negative Ur Tricyclic Antidepressants Screen Negative Urine Phencyclidine Screen Negative Urine Amphetamines Screen Negative Urine Benzodiazepines Screen Negative Urine Cocaine Screen Negative Urine Cannabinoids Screen Negative Coagulation Test 09/18/17 14:45 Prothrombin Time 15.0 seconds Prothromb Time International Ratio 1.17 Activated Partial Thromboplast Time 28 seconds D-Dimer Quantitative (PE/DVT) 7.36 ug/ml Toxicology Test 09/18/17 14:45 09/18/17 15:18 Serum Alcohol < 10 mg/dl Urine Opiates Screen Positive Urine Barbiturates Screen Negative Ur Tricyclic Antidepressants Screen Negative Urine Phencyclidine Screen Negative Urine Amphetamines Screen Negative Urine Benzodiazepines Screen Negative Urine Cocaine Screen Negative Urine Cannabinoids Screen Negative Urinalysis Test 09/18/17 15:18 Urine Color Yellow Urine Clarity Clear Urine pH 6.0 pH (4.8-9.5) Urine Specific Barnett 1.012 Urine Protein 30 mg/dL (NEGATIVE) Urine Glucose (UA) Negative mg/dL (NEGATIVE) Urine Ketones Trace mg/dL (NEGATIVE) Urine Blood Negative (NEGATIVE) Urine Nitrite Negative (NEGATIVE) Urine Bilirubin Negative (NEGATIVE) Urine Urobilinogen Negative mg/dL (0.2-1.9) Urine Leukocyte Esterase Negative (NEGATIVE) Urine RBC 10 /HPF (0-2/HPF) Urine WBC 4 /HPF (0-5/HPF) Urine Squamous Epithelial Cells None /LPF (NONE-FEW) Urine Bacteria Negative /HPF (NONE-FEW) Urine Hyaline Casts Few /LPF (NONE-FEW) Urine Mucus Few /HPF (NONE-FEW) EKG/Imaging EKG Interpretation Please see official report- NSR, no ischemic changes or ST elevations Imaging CTA CHEST WW/O CNTR (PULM ANG) HISTORY: post arrest ADDITIONAL HISTORY: None. TECHNIQUE: CTA chest with intravenous contrast. Axial imaging acquired following administration of IV contrast timed for maximum opacification of the pulmonary arterial vasculature. Slab 3-D MIP reconstructed images were also created for further evaluation and interpretation. Reconstruction of the source data set includes multiplanar 2-D in the sagittal and coronal planes and 3-D reconstructed coronal slab MIP series. 3-D images were created by the technologist. Dose Lowering Technique One of the following dose optimization techniques was utilized in the performance of this exam: Automated exposure control; adjustment of the mA and/ or kV according to the patient's size; or use of an iterative reconstruction technique. Specific details can be referenced in the facility's radiology CT exam operational policy. CONTRAST: 75 mL Isovue-370 COMPARISON: Single view chest performed today FINDINGS: Lungs/pleura: There is a moderate posterior layering right pleural effusion which is partially loculated in the major fissure. Also noted is a small posterior layering left pleural effusion. There is dense airspace consolidation in the dependent portion of both lower lobes consistent with atelectasis and or developing infiltrates.. There is severe narrowing/occlusion of the right lower lobe bronchus which is surrounded by abnormal soft tissue density material. Heart/vessels: There is no evidence of pulmonary emboli. There are coronary artery calcifications Mediastinum/lymph nodes: There enlarged mediastinal lymph nodes. A admitting representative right paratracheal lymph node measures 2 x 1.3 x 2.3 cm.. A admitting representative AP window lymph node measures 1.8 x 1 x 1.2 cm there suggestion of left hilar adenopathy as well. As mentioned above there is abnormal soft tissue density material the right hilum which surrounds and severely narrow/ occludes the right lower lobe bronchus Visualized upper abdomen: Calcified granulomas in the spleen Bones/soft tissues: Moderate spondylotic changes in the thoracic spine. The spinal stimulator is noted in the midthoracic spine Additional findings: None IMPRESSION: There is a moderate posterior layering right pleural effusion which is partially loculated in the major fissure. There is dense airspace consolidation in the right lower lobe consistent with infiltrate and/or atelectasis. There is abnormal soft tissue density material surrounding the right lower lobe bronchus producing severe narrowing/occlusion. There is a small posterior layering left pleural effusion with airspace consolidation in the dependent portion of the left lower lobe consistent with infiltrate and/or atelectasis Mediastinal and hilar adenopathy. These findings could be related to malignancy versus infectious/inflammatory process. Bronchoscopy may be helpful for further evaluation No evidence of pulmonary emboli EXAMINATION: CT Head Without Contrast 09/18/2017 3:22 PM HISTORY: post arrest TECHNIQUE: Contiguous axial images were obtained from the skull base to the vertex without intravenous contrast. One of the following dose optimization techniques was utilized in the performance of this exam: Automated exposure control; adjustment of the mA and/ or kV according to the patient's size; or use of an iterative reconstruction technique. Specific details can be referenced in the facility's radiology CT exam operational policy. COMPARISON STUDIES: Separate CTA chest today. FINDINGS: Ventricles / sulci / fissures: Mildly prominent, probably age-related. Masses / hemorrhage / midline shift: negative White matter: Mild chronic appearing deep white matter and periventricular hypodensities. No acute finding. Brock-white differentiation: negative Extra-axial spaces: negative Dural venous sinuses / arterial structures: Mild intracranial ICA atherosclerotic calcifications. Skull base / calvarium: negative Visualized mastoid air cells / paranasal sinuses: Partial opacification of some of the ethmoids. Mastoids are well-pneumatized. IMPRESSION: No acute intracranial abnormality. No mass, stroke, or hemorrhage. CHEST SINGLE AP Additional pertinent History: , CODE BLUE COMPARISON STUDIES: none FINDINGS: Support lines and catheters: EKG wire leads Lungs and Pleura: Parenchymal opacity in the right lower lung partially obscuring the medial aspect of the right hemidiaphragm. Blunting of the right costophrenic angle Heart and vasculature: Heart is mildly enlarged. Yumi and Mediastinum: Negative. Bones and Chest wall: Negative. Upper Abdomen: Negative. IMPRESSION: 1. Parenchymal opacity in the right lower lung field. Infiltrate from aspiration possible. Developing pneumonic infiltrate not excluded. Blunting of the right costophrenic angle suggests effusion. ED Course/Re-evaluation ED Course Patient is a 72-year-old male here status post cardiac arrest, status post 2 rounds of CPR and 2 doses of epinephrine with ROSC. Patient was recently admitted for COPD exacerbation and discharged approximately 2 days ago. Patient had been complaining of severe shortness of breath prior to becoming unresponsive per patient . Patient arrived with a Irving airway in place, to address his devices. A triple-lumen femoral central line was placed upon arrival , EKG showed no ischemic changes or ST elevations. Irving tube was exchanged for a 7.5 endotracheal tube VIA glydescope. Patient was found to have a lactate of 11, WBC 21. CTH showed no ICH or mass (see imaging report). CT PE showed no acute PE (please see report). Patient was placed on NE infusion for HD support and propofol for post intubation sedation. I discussed the patient with Dr. Clark (ophthalmic photographer) with [facility]/Cecelia Johnson who accepted the patient. Family was updated and agreed with plan. Decision to Disposition Date: Sep 18, 2017 Decision to Disposition Time: 18:35 Depart Departure Latest Vital Signs Vital Signs Date Time Temp Pulse Resp B/P (MAP) Pulse Ox O2 Delivery O2 Flow Rate FiO2 09/18/17 18:30 92 16 160/87 (111) 93 09/18/17 15:33 80.0 Impression: Primary Impression: Respiratory arrest Condition: Critical Disposition: XFER TO [facility] ([facility]- Dr. Clark accepted) TIFFANIE BASS DO Sep 18, 2017 16:10
--- NOTE | 2017-09-18 17:19 | RADIOLOGY IMAGING REPORT ---
FACILITY: [facility] [place] PATIENT NAME: Jaswinder Hall : 1945 MR: [id number] V: [id number] EXAM DATE: ORDERING PHYSICIAN: TIFFANIE BASS TECHNOLOGIST: Location: [facility] [place] Patient: Jaswinder Hall : 1945 Visit/Account:[id number] Date of Sevice: 09/18/2017 CTA CHEST WW/O CNTR (PULM ANG) HISTORY: post arrest ADDITIONAL HISTORY: None. TECHNIQUE: CTA chest with intravenous contrast. Axial imaging acquired following administration of IV contrast timed for maximum opacification of the pulmonary arterial vasculature. Slab 3-D MIP ricky nstructed images were also created for further evaluation and interpretation. Reconstruction of the [facility] data set includes multiplanar 2-D in the sagittal and coronal planes and 3-D reconstructed sandor nal slab MIP series. 3-D images were created by the technologist. Dose Lowering Technique One of the following dose optimization techniques was utilized in the performance of this exam: Autom ated exposure control; adjustment of the mA and/or kV according to the patient's size; or use of an i terative reconstruction technique. Specific details can be referenced in the facility's radiology C T exam operational policy. CONTRAST: 75 mL Isovue-370 COMPARISON: Single view chest performed today FINDINGS: Lungs/pleura: There is a moderate posterior layering right pleural effusion which is partially locul ated in the major fissure. Also noted is a small posterior layering left pleural effusion. There is dense airspace consolidation in the dependent portion of both lower lobes consistent with atelectasi s and or developing infiltrates.. There is severe narrowing/occlusion of the right lower lobe bronchus which is surrounded by abnormal soft tissue density material. Heart/vessels: There is no evidence of pulmonary emboli. There are coronary artery calcifications Mediastinum/lymph nodes: There enlarged mediastinal lymph nodes. A retail customer service representative right paratrachea l lymph node measures 2 x 1.3 x 2.3 cm.. A retail customer service representative AP window lymph node measures 1.8 x 1 x 1. 2 cm there suggestion of left hilar adenopathy as well. As mentioned above there is abnormal soft ti ssue density material the right hilum which surrounds and severely narrow/occludes the right lower lo be bronchus Visualized upper abdomen: Calcified granulomas in the spleen Bones/soft tissues: Moderate spondylotic changes in the thoracic spine. The spinal stimulator is no sherrie in the midthoracic spine Additional findings: None IMPRESSION: There is a moderate posterior layering right pleural effusion which is partially loculated in the sarthak or fissure. There is dense airspace consolidation in the right lower lobe consistent with infiltrate and/or atelectasis. There is abnormal soft tissue density material surrounding the right lower lobe bronchus producing severe narrowing/occlusion. There is a small posterior layering left pleural effusion with airspace consolidation in the dependen t portion of the left lower lobe consistent with infiltrate and/or atelectasis Mediastinal and hilar adenopathy. These findings could be related to malignancy versus infectious/in flammatory process. Bronchoscopy may be helpful for further evaluation No evidence of pulmonary emboli Report Dictated By: Perla Darby MD at 09/18/2017 5:02 PM Report E-Signed By: Perla Darby MD at 09/18/2017 5:15 PM ALISN:AMIDANDREVCarolyn
[2017-09-18] MEDS ORDERED: PROPOFOL EMUL 10MG/ML 20 ML VL IV ONE ×3 (17:25→20:20)
[2017-09-18] MEDS ORDERED: NOREPINE BITAR* 4 MG/4 ML AMP 4 MG in D5W(*) 250 ML BAG 246 ML IV PRN (17:25)
[2017-09-18] MEDS ORDERED: NS(*) 0.9% 1000 ML BAG 1,000 ML IV ONE ×2 (17:35→19:20)
--- NOTE | 2017-09-18 18:24 | RADIOLOGY IMAGING REPORT ---
FACILITY: [facility] PATIENT NAME: Jaswinder Hall : 1945 MR: [id number] V: [id number] EXAM DATE: ORDERING PHYSICIAN: TIFFANIE BASS TECHNOLOGIST: Location: [facility] - [place] Patient: Jaswinder Hall : 1945 Visit/Account:[id number] Date of Sevice: 09/18/2017 EXAMINATION: CT Head Without Contrast 09/18/2017 3:22 PM HISTORY: post arrest TECHNIQUE: Contiguous axial images were obtained from the skull base to the vertex without intraven ous contrast. One of the following dose optimization techniques was utilized in the performance of this exam: Autom ated exposure control; adjustment of the mA and/or kV according to the patient's size; or use of an i terative reconstruction technique. Specific details can be referenced in the facility's radiology C T exam operational policy. COMPARISON STUDIES: Separate CTA chest today. FINDINGS: Ventricles / sulci / fissures: Mildly prominent, probably age-related. Masses / hemorrhage / midline shift: negative White matter: Mild chronic appearing deep white matter and periventricular hypodensities. No acute fi nding. Brock-white differentiation: negative Extra-axial spaces: negative Dural venous sinuses / arterial structures: Mild intracranial ICA atherosclerotic calcifications. Skull base / calvarium: negative Visualized mastoid air cells / paranasal sinuses: Partial opacification of some of the ethmoids. Mast oids are well-pneumatized. IMPRESSION: No acute intracranial abnormality. No mass, stroke, or hemorrhage. Report Dictated By: Anthony Fragoso MD at 09/18/2017 5:20 PM Report E-Signed By: Anthony Fragoso MD at 09/18/2017 6:21 PM WSN:[id number]
[2017-09-18] MEDS ORDERED: ROCURONIUM BROM 10 MG/ML 10 ML IVP PRN (19:15)
[2017-09-18] MEDS ORDERED: fentaNYL CITR 100 MCG/2 ML AMP IVP ONE (20:00)
[2017-09-18] MEDS: PROPOFOL(*)1000 MG/100 ML VIAL 100 ML ONE ×2 (21:22→21:23)
[2017-09-18 21:23] VITALS: BP 116/68
== END 2017-09-18 21:45 | disposition short-term general hospital (02) ==
LOC: EDBD 14:43 → MERGE 14:43 → ER 14:43
DX: R09.2 Respiratory arrest (principal); R06.02 Shortness of breath; R94.31 Abnormal electrocardiogram [ECG] [EKG]; J90 Pleural effusion, not elsewhere classified; R40.20 Unspecified coma
CPT/HCPCS: 31500; 36416; 36556; 70450; 71045; 71275; 80305; 81001; 82140; 82150; 82803; 82948; 83605; 83690; 83880; 84484; 85025; 85379; 85610; 85730; 93005; 94002; 94770; 96365; 96366; 96368; 96375; 99285; C1758; G0480; J2704; J3010; J7030; J7060; Q9967; 80320; 82040; 82247; 82310; 82374; 82435; 82565; 82947; 84075; 84132; 84155; 84295; 84450; 84460; 84520

== ENCOUNTER → 2017-09-18 | Outpatient (CLI) | payer MEDICARE, BC ==
[2017-09-03 10:07] VITALS: BMI 28.9
[~2017-09-18] MED LIST changes: +CEF300 PO; +DOCU-202 PO; +FURO40TA35 PO; +POTA20TA10 PO; +TRAZ-163 PO; -TRAZ100T31 PO; +[UNRECOGNIZED DRUG - CODE] IV; +[UNRECOGNIZED DRUG - CODE] PO
== END ==
LOC: AMB 14:11
PROVIDERS: ATTEND Nurse Practitioner
DX: I46.9 Cardiac arrest, cause unspecified (principal)
CPT/HCPCS: A0425; A0433

== ENCOUNTER → 2017-10-18 | Outpatient (CLI) | payer MEDICARE, BC ==
[~2017-10-18] MED LIST changes: -TRAZ-163 PO; +TRAZ100T31 PO
[2017-10-18 14:04] LABS: PLATELET COUNT, AUTOMATED 376 K/uL (150-450)
== END ==
LOC: LAB 13:33
PROVIDERS: ATTEND Internal Medicine
DX: J44.9 Chronic obstructive pulmonary disease, unspecified (principal); J18.9 Pneumonia, unspecified organism; J96.90 Respiratory failure, unspecified, unspecified whether with hypoxia or hypercapnia
CPT/HCPCS: 36415; 82040; 82247; 82310; 82374; 82435; 82565; 82947; 84075; 84132; 84155; 84295; 84443; 84450; 84460; 84520; 85025

== ENCOUNTER → 2017-10-23 | Outpatient (CLI) | payer MEDICARE, BC ==
--- NOTE | 2017-10-23 15:02 | RADIOLOGY IMAGING REPORT ---
FACILITY: [facility] PATIENT NAME: Jaswinder Hall : 1945 MR: [id number] V: [id number] EXAM DATE: ORDERING PHYSICIAN: LEANNE DOWNING TECHNOLOGIST: Location: [facility] [place] Patient: Jaswinder Hall : 1945 Visit/Account:[id number] Date of Sevice: 10/23/2017 Exam type: CHEST PA AND LAT History: Right-sided pleural effusion, COPD Comparison: September 18, 2017 and September 05, 2017. Findings: Blunting the left costophrenic angle remains stable. Small right pleural effusion is slightly decrea sed in size. There has been partial improvement of the bibasilar airspace consolidation. No evidenc e of overt pulmonary edema. The cardiac silhouette is stable. Spinal stimulator projects over the t horacic spine. IMPRESSION: 1. Blunted left costophrenic angle relatively unchanged Small right pleural effusion slightly decreased. Partial improvement of the bibasilar airspace conso lidation Report Dictated By: Perla Darby MD at 10/23/2017 2:53 PM Report E-Signed By: Perla Darby MD at 10/23/2017 2:57 PM WSN:[email or web address]
== END ==
LOC: RAD 14:22
PROVIDERS: ATTEND Internal Medicine
DX: J90 Pleural effusion, not elsewhere classified (principal); J44.9 Chronic obstructive pulmonary disease, unspecified
CPT/HCPCS: 71046

== ENCOUNTER → 2017-12-05 | Outpatient (CLI) | payer MEDICARE, BC ==
[~2017-12-05] MED LIST changes: +CYAN100088 PO; +FOLI-68 PO
[2017-12-05 09:31] LABS: PLATELET COUNT, AUTOMATED 382 K/uL (150-450)
== END ==
LOC: LAB 09:03
PROVIDERS: ATTEND Internal Medicine
DX: J44.9 Chronic obstructive pulmonary disease, unspecified (principal); I27.20 Pulmonary hypertension, unspecified; I25.10 Atherosclerotic heart disease of native coronary artery without angina pectoris; G89.29 Other chronic pain; D64.9 Anemia, unspecified
CPT/HCPCS: 36415; 82040; 82247; 82310; 82374; 82435; 82565; 82607; 82728; 82746; 82947; 83540; 83550; 84075; 84132; 84155; 84295; 84443; 84450; 84460; 84520; 85025

== ENCOUNTER 2017-12-18 11:05 | Outpatient (RCR) | payer MEDICARE, BC ==
--- NOTE | 2017-10-24 07:36 | PT INITIAL EVALUATION ---
MEDICAL DIAGNOSIS: Weakness, Decreased Balance and Gait, Left ankle Fracture TREATMENT DIAGNOSIS: Generalized Weakness, Decreased Balance and Gait, Left ankle Fracture DATE OF ONSET: 10/22/17 SUBJECTIVE: Jaswinder Hall (Fred) is a 72 year old male presenting to physical therapy following recent prolonged hospitalization with respiratory arrest complicated by GI bleed with anemia, sinus bradycardia and PE. Over the duration pt spent a total of 1 month in the hospital followed by inpatient rehabilitation. Currently pt complains of weakness and dyspnea on exertion. Pt reports that he feels unsteady with walking and that sometimes his oxygen levels don't keep up. Pt has a history of L ankle fracture as well with complication which he was previously receiving PT for. Since his ankle is doing better without pain, but seems stiff. REHAB PROBLEM LIST: Increased Pain Decreased Strength Impaired Transfers Decreased Endurance Decreased Balance Decreased Function Decreased ADL's Decreased Mobility Decreased Gait PREVIOUS MEDICAL HISTORY: See EMR OBJECTIVE: Pt presents on 5 L of oxygen with portable concentrator. BP: 93/60 increasing to ( 115/63 with mobility), O2 sat: 97% (dropping to 80% with mobility) Posture: Pt has significant forward trunk lean with increased thoracic and lumbar kyphosis and forward head ROM: LE ROM WFL Strength: LE MMT: Hip: flexion: L 4-/5, R 4/5, Ext: L 4-/5, R 4/5, abd: B 4+/5, add: B 4/5, Knee: ext: L 4-/5, R 4/5, flex: B 4/5, Ankle: DF: L 4/5, R 4-/5, PF : B 4-/5. Mobility: Pt is able to perform transfers from seated to standing with B UE support. Gait: Pt ambulates with forward trunk lean using a SPC for stability. Pt has decreased foot clearance B with decreased stance phase on the L compared to the R. Pt has decreased hip ext B L>R. Gait is unsteady with a wide NATALIE and frequent deviations laterally. Other Objective Findings: Lower Extremity Functional Scale (LEFS): ASSESSMENT: Pt presents with generalized weakness and instability as outlined by the above listed deficits. Physical therpay is indicated for this patient to improved functional stability with ambulation and transfers as well as improve strength to increase function with ADL's. Pt referring PCP was contacted by PT concerning low BP as a concern to progress with exercise. Short Term Goals In 3 weeks pt will be able to perform 10 sit<>stand transfers without use of UE for improved ability to perform transfers with ADL's. In 3 weeks pt will improve LEFS score to 32/50 for increased function with ADL' s. In 6 weeks pt will improve B LE strength as tested by MMT to 4/5 or greater for increased performance with ADL's. In 6 weeks pt will improve LEFS score to 40/80 for increased function with ADL' s. Patient's Goals Increase strength and function. PLAN: Patient to be seen for Manual Therapy/STM/MET Strengthening/condition Ice/Heat Range of Motion Spinal Stabilization Ultrasound Stretching Iontophoresis Neuromuscular Re-ed Closed Chain Program Electrical Stim Posture/Body mechanics Gait Trg/Balance Trg Home Exercise Program Mech./Manual Traction Therapeutic Activities 2-3x/Week for 6 Weeks If you have any questions, comments, or concerns about this report or plan, please contact me at . Thank you, Hannah Prakash, PT, DPT, CLT MTDD
--- NOTE | 2017-11-29 08:30 | PT PLAN OF CARE ---
Physician: Tyler Kraus MD Patient is being seen: 2-3x/Week Therapist: Hannah Prakash, PT, DPT, CLT Medical Diagnosis: Weakness, Decreased Balance and Gait, Left ankle Fracture Treatment Diagnosis: Generalized Weakness, Decreased Balance and Gait, Left ankle Fracture Date of Onset: 10/22/17 Date of Initial Evaluation: 10/23/17 Date patient was last seen: 11/27/17 Number of treatments: 10 Number of cancellations/No shows: 1 INTERVENTIONS: Manual Therapy/STM/MET Strengthening/condition Ice/Heat Range of Motion Spinal Stabilization Ultrasound Stretching Iontophoresis Neuromuscular Re-ed Closed Chain Program Electrical Stim Posture/Body mechanics Gait Trg/Balance Trg Home Exercise Program Mech./Manual Traction Therapeutic Activities GOALS: In 3 weeks pt will be able to perform 10 sit<>stand transfers without use of UE for improved ability to perform transfers with ADL's. MET In 3 weeks pt will improve LEFS score to 32/50 for increased function with ADL's. MET In 6 weeks pt will improve B LE strength as tested by MMT to 4/5 or greater for increased performance with ADL's. In 6 weeks pt will improve LEFS score to 40/80 for increased function with ADL's. MET PATIENT'S GOAL: Increase strength and function. Status of Patient's Goals: 2/4 MET, 2/4 In Progress Patient Compliance: Good Prognosis: Good Reasons for continuing therapy: Pt shows improved progress with strength and endurance with functional mobility. Pt oxygen levels remain low with constant monitoring with physical exercise, but pt is becoming more aware of low oxygen status and management. Transfers from seated to standing show improvement as does gait mechanics though impairments remain with posture. Further PT to continue with strength gains as well as functional mobility and balance to decrease risk of falls and improve function with ADL's. Posture: Pt has significant forward trunk lean with increased thoracic and lumbar kyphosis and forward head ROM: LE ROM WFL Strength: LE MMT: Hip: flexion: L 4-/5, R 4/5, Ext: L 4-/5, R 4/5, abd: B 4+/5, add: B 4/5, Knee: ext: L 4-/5, R 4/5, flex: B 4/5, Ankle: DF: L 4/5, R 4-/5, PF: B 4-/5. Special Tests: LEFS: 45/80 Mobility: Pt is able to perform transfers from seated to standing with B UE support. If you have any questions, please feel free to contact me at [phone]. Thank you, Hannah Prakash, PT, DPT, CLT MTDD
[~2017-12-18 11:05] MED LIST changes: -LOSA100T67 PO; +LOSA100T69 PO
--- NOTE | 2018-01-11 09:20 | PT PLAN OF CARE ---
Physician: Tyler Kraus MD Patient is being seen: 2-3x/Week Therapist: Hannah Prakash, PT, DPT, CLT Medical Diagnosis: Weakness, Decreased Balance and Gait, Left ankle Fracture Treatment Diagnosis: Generalized Weakness, Decreased Balance and Gait, Left ankle Fracture Date of Onset: 10/22/17 Date of Initial Evaluation: 10/23/17 Date patient was last seen: 12/25/17 Number of treatments: 13 Number of cancellations/No shows: 5 INTERVENTIONS: Manual Therapy/STM/MET Strengthening/condition Ice/Heat Range of Motion Spinal Stabilization Ultrasound Stretching Iontophoresis Neuromuscular Re-ed Closed Chain Program Electrical Stim Posture/Body mechanics Gait Trg/Balance Trg Home Exercise Program Mech./Manual Traction Therapeutic Activities GOALS: In 3 weeks pt will be able to perform 10 sit<>stand transfers without use of UE for improved ability to perform transfers with ADL's. MET In 3 weeks pt will improve LEFS score to 32/50 for increased function with ADL's. MET In 6 weeks pt will improve B LE strength as tested by MMT to 4/5 or greater for increased performance with ADL's. In 6 weeks pt will improve LEFS score to 40/80 for increased function with ADL's. MET PATIENT'S GOAL: Increase strength and function. Status of Patient's Goals: 2/4 MET, 2/4 In Progress Patient Compliance: Good Prognosis: Good Reasons for discharge from therapy: Rocky is to discharge from physical therapy at this time secondary to frequent cancellations. At the time of discharge pt showed improved progress with strength and endurance with functional mobility. Pt continued to show fatigue with any increase in activity as well as lingering postural deformities which were increased with fatigue. Upon discharge pt is to continue with HEP and independent strengthening and seek further PT if he is later able to continue progress towards goals of strength and mobility. Posture: Pt has significant forward trunk lean with increased thoracic and lumbar kyphosis and forward head ROM: LE ROM WFL Strength: LE MMT: Hip: flexion: L 4-/5, R 4/5, Ext: L 4-/5, R 4/5, abd: B 4+/5, add: B 4/5, Knee: ext: L 4-/5, R 4/5, flex: B 4/5, Ankle: DF: L 4/5, R 4-/5, PF: B 4-/5. Special Tests: LEFS: 45/80 Mobility: Pt is able to perform transfers from seated to standing with B UE support. If you have any questions, please feel free to contact me at [phone]. Thank you, Hannah Prakash, PT, DPT, CLT MTDD
== END 2017-12-18 18:00 | disposition home or self-care (01) ==
LOC: PT 11:05
PROVIDERS: ATTEND Internal Medicine
DX: R53.1 Weakness (principal); R26.89 Other abnormalities of gait and mobility; R06.00 Dyspnea, unspecified; Z99.81 Dependence on supplemental oxygen
CPT/HCPCS: 97162

== ENCOUNTER → 2017-12-28 | Outpatient (CLI) | payer MEDICARE, BC ==
--- NOTE | 2018-01-03 07:51 | RADIOLOGY IMAGING REPORT ---
FACILITY: [facility] [place] PATIENT NAME: Jaswinder Hall : 1945 MR: [id number] V: [id number] EXAM DATE: ORDERING PHYSICIAN: BANDAR MATTHEW TECHNOLOGIST: Location: [facility] Patient: Jaswinder Hall : 1945 Visit/Account:[id number] Date of Sevice: 12/28/2017 CHEST W/O CONTRAST History: Follow-up adenopathy and no pleural effusions. Patient has COPD. TECHNIQUE: Contiguous axial images were performed through the chest to the level of the adrenal gla nds. No IV contrast was administered. Coronal and sagittal reformatting was also performed. One of t he following dose optimization techniques was utilized in the performance of this exam: Automated exp osure control; adjustment of the mA and/or kV according to the patient's size; or use of an iterative reconstruction technique. Specific details can be referenced in the facility's radiology CT exam o perational policy. COMPARISON STUDIES: Comparison chest CT dated 09/18/2017 Lungs / Pleura: Emphysematous changes are seen in the lungs with a small bulla in the upper lung zo snehal. There is a persistent patchy interstitial opacities in the right middle and right lower lobes wh ich are slightly improved and an area of tressa segmental consolidation left lower lobe which is also slightly improved. A previous right-sided pleural effusion has nearly completely resolved. A small le ft pleural effusion is stable. Contrast was not administered. There is mild pleural thickening seen a round both effusions which raises the possibility of infection. Mediastinum/nodes: Again seen is mediastinal adenopathy although slightly improved from the prior st udy. For example, a paratracheal node previously measuring 1.9 cm longest dimension now measures 1.7 cm longest dimension. Subcarinal lymph node previously measuring 2.1 cm longest dimension now measure s 1.5 cm longest dimension. Heart and vessels: negative. Musculoskeletal / Body wall: There is intraspinal neurostimulator in place with lead tips in the mi d thorax. Upper abdomen: Visualized abdominal viscera negative. IMPRESSION: Persistent although improving patchy right basilar airspace consolidation and segmental consolidation left lung base. Right pleural effusion has nearly completely resolved. Stable small left pleural effusion. Both pleur al effusions demonstrated pleural thickening raising the possibility of empyema or chronic inflammato ry change. Continued mediastinal adenopathy although slightly improved. Centrilobular emphysema Positive albeit limited improvement favors an inflammatory/infectious process over malignancy. Fili r, patient is at high risk with underlying emphysema and continued CT surveillance recommended. I gabe pool suggest noncontrasted follow-up CT in 2-3 months. Report Dictated By: Magnus Avina MD at 01/03/2018 7:36 AM Report E-Signed By: Magnus Avina MD at 01/03/2018 7:46 AM WSN:[id number]
== END ==
LOC: CT 03:52
PROVIDERS: ATTEND Internal Medicine
DX: J90 Pleural effusion, not elsewhere classified (principal); J43.2 Centrilobular emphysema; R91.8 Other nonspecific abnormal finding of lung field
CPT/HCPCS: 71250

== ENCOUNTER → 2018-01-28 | Outpatient (CLI) | payer MEDICARE, BC | LOC: LAB 08:40 | PROVIDERS: ATTEND Internal Medicine | DX: J43.2 Centrilobular emphysema (principal) | CPT/HCPCS: 87116; 87252 ==

== ENCOUNTER 2018-05-13 12:04 | Inpatient (IN) | payer MEDICARE, BC ==
[2017-09-03 10:07] VITALS: Wt 77.1 kg
[~2018-05-13 12:04] MED LIST changes: -LOSA100T69 PO; +LOSA100T75 PO
[2018-05-13] MEDS ORDERED: ALBUTEROL 2.5 MG/0.5ML ER ONLY NEB ONE (12:20)
[2018-05-13 12:32] LABS: PLATELET COUNT, AUTOMATED 401 K/uL (150-450)
--- NOTE | 2018-05-13 12:32 | ER Report ---
History and Physical Time Seen By MD: 12:01 Hx. of Stated Complaint: Pt comes from home with saturation of 75% on 8LPM per NC. HPI/ROS CHIEF COMPLAINT: Increased work of breathing HISTORY OF PRESENT ILLNESS: Patient is a 72 Male who presents emergency Department with increasing work of breathing and shortness of breath. Patient does have a history of COPD and does per chronic oxygen at home but noted to have low oxygen saturations at about 75% despite increasing oxygen use at 8 L/m. Patient denies any fevers or chills. He does report a mild cough. Denies body aches. No known ill contacts at home. Patient usually wears approximate 6 L and nasal cannula at home however was found to have low O2 sats by EMS. 75% on 8 L by face mask. REVIEW OF SYSTEMS: Constitutional: No fever, no chills. Eyes: No discharge. ENT: No sore throat. Cardiovascular: No chest pain, no palpitations. Respiratory: Dry cough, dyspnea Gastrointestinal: No abdominal pain, no vomiting. Genitourinary: No hematuria. Musculoskeletal: No back pain. Skin: No rashes. Neurological: No headache. Allergies: Coded Allergies: cyclobenzaprine (Verified Adverse Reaction, Intermediate, felt very sleepy and confused. , 05/13/18) Home Meds Active Scripts Oxycodone Hcl/Acetaminophen (OXYCODONE-ACETAMINOPHEN 10-325) 1 Each Tablet, 1 EACH PO TID PRN for pain, #75 TAB Prov:LEANNE DOWNING MD 05/10/18 Morphine Sulfate (MORPHINE SULFATE ER) 60 Mg Tablet.er, 60 MG PO BID, #60 TAB Prov:LEANNE DOWNING MD 05/10/18 Gabapentin (GABAPENTIN) 300 Mg Capsule, 300 MG PO QID, #120 CAPSULE 6 Refills Prov:LEANNE DOWNING MD 04/30/18 Tamsulosin Hcl (TAMSULOSIN HCL) 0.4 Mg Cap.er.24h, 2 CAP PO DAILY, #180 CAP 1 Refill Prov:LEANNE DOWNING MD 04/01/18 Trazodone Hcl (TRAZODONE HCL) 100 Mg Tablet, 100 MG PO QHS PRN for insomnia, #90 TAB 1 Refill Prov:LEANNE DOWNING MD 03/06/18 Pantoprazole Sodium (PANTOPRAZOLE SODIUM) 40 Mg Tablet.dr, 40 MG PO BID, #180 TAB.SR 3 Refills Prov:LEANNE DOWNING MD 03/06/18 Bupropion Hcl (BUPROPION HCL SR) 150 Mg Tablet.er, 1 TAB PO QDAY, #90 TAB 1 Refill Prov:LEANNE DOWNING MD 01/30/18 Duloxetine HCl (Duloxetine HCl) 60 Mg Capsule.dr, 1 TAB PO BID, #180 TAB 2 Refills Prov:LEANNE DOWNING MD 01/18/18 Simvastatin (SIMVASTATIN) 20 Mg Tablet, 1 TAB PO HS, #90 TAB 4 Refills Prov:LEANNE DOWNING MD 12/07/17 Albuterol Sulfate 90 Mcg/Act (PROAIR HFA 90 MCG/ACT) 8.5 Gm Hfa.aer.ad, 2 PUFF IH Q4-6H PRN for SHORTNESS OF BREATH, #1 INHALER 3 Refills Prov:LEANNE DOWNING MD 11/05/17 Docusate Sodium (DOCUSATE SODIUM) 100 Mg Capsule, 100 MG PO BID for 14 Days, #30 CAPSULE Prov:SERA VUONG MD 09/15/17 Allopurinol (ALLOPURINOL) 100 Mg Tablet, 1 TAB PO QDAY, #90 TAB 4 Refills TAKE 1 TABLET BY MOUTH EVERY DAY Prov:LEANNE DOWNING MD 08/22/17 Oxygen (OXYGEN) Inha, 4-5 L INH q daily, #4 L Oxygen at 4-5L continuous and may increase to 6L with activity Prov:AURE MULLINS MD 12/29/15 Reported Medications Folic Acid (FOLIC ACID) 1 Mg Tablet, 1 MG PO QDAY, TAB 12/06/17 Cyanocobalamin (Vitamin B-12) (B-12) 1,000 Mcg Tablet.er, 1000 MCG PO QDAY, TAB 12/06/17 Fluticasone/Salmeterol (ADVAIR HFA 115-21 MCG INHALER) 12 Gm Hfa.aer.ad, 2 PUFF IH BID 04/09/17 Aspirin (ASPIR 81) 81 Mg Tablet.dr, 81 MG PO QDAY, TAB 03/15/17 Tiotropium [place] (SPIRIVA) 18 Mcg/Cap Inh, 18 MCG INH DAILY, INH 12/28/15 Multivitamin (MULTI VITAMIN DAILY) 1 Each Tablet, 1 EACH PO DAILY 07/17/14 Past Medical/Surgical History Past medical history significant for coronary artery disease status post stent placement 2 in 2007. Hyperlipidemia, hypertension, COPD on chronic oxygen during the day in the evening. History of Vasquez's esophagitis. History of chronic renal failure with a creatinine of 1.5 as a baseline. History of chronic back pain history of gout history of alcoholism history of depression. History of sciatica. Hx Smoking: Yes (SMOKED 1 PPD FOR 30 YEARS, QUIT 2002) Smoking Status: Former Smoker Exposure to Second Hand Smoke?: No Hx Substance Use Disorder: No Hx Alcohol Use: Yes Constitutional Vital Sign - Last 24 Hours 05/13/18 05/13/18 05/13/18 05/13/18 12:23 12:29 12:36 12:36 Temp 98.3 Pulse 90 91 Resp 18 18 B/P (MAP) 119/78 Pulse Ox 95 91 O2 Delivery Nasal Cannula Nasal Cannula O2 Flow Rate 6.0 4.0 05/13/18 05/13/18 05/13/18 05/13/18 12:50 12:50 13:12 13:12 Pulse 89 91 Resp 18 18 Pulse Ox 98 89 O2 Delivery Nasal Cannula Nasal Cannula O2 Flow Rate 4.0 4.0 Physical Exam General/Constitutional: Patient is awake, alert, nontoxic least work of breathing, sensory muscle use. Head: Normocephalic/atraumatic. Eyes: Conjunctival clear, Pupils are equal and reactive to light. Extraocular muscles are intact and symmetrical. Sclera are clear and anicteric. Ears:External canals are clear. Tympanic membranes are clear with normal landmar ks and light reflex. Nares: No rhinorrhea or bleeding. Turbinates are pink and moist. Oropharyngeal: Mucous membranes are moist. There is no pharyngeal erythema or exudate. There are no palatal petechiae. Uvula is midline and symmetrical. Neck: Supple, no adenopathy. Cardiovascular: Heart is regular rate and rhythm without audible murmurs, rubs or gallops. Pulmonary: Lungs are clear to auscultation bilaterally. No audible wheezes or rhonchi. Increased rate. Abdomen: Soft, nontender, no guarding or peritoneal signs. Extremities: No gross deformities, No peripheral cyanosis. Able to move all 4 extremities. Neuro: Alert and oriented X3, Skin: No rashes, skin is warm dry and well perfused. Medical Decision Making Data Points Result Diagram: 05/13/18 1228 05/13/18 1228 Laboratory Hematology Test 05/13/18 12:19 05/13/18 12:28 05/13/18 13:23 Blood Gas Puncture Site Right radial Blood Gas Patient Temperature 98.3 DEGREES Arterial Blood pH 7.43 (7.35-7.45) Arterial Blood Partial Pressure CO2 42 mmHg (32-37) Arterial Blood Partial Pressure O2 94 mmHg (60-80) Arterial Blood HCO3 28 mmol/L (20-26) Arterial Blood Oxygen Saturation 98 % (92-100) Arterial Blood Base Excess 4.0 mmol/L Rickey Test Acceptable Oxygen Liters/Minute 40 Red Blood Count 3.72 M/uL (4.00-5.60) Mean Corpuscular Volume 85.4 fL (80.0-96.0) Mean Corpuscular Hemoglobin 26.8 pg (26.0-33.0) Mean Corpuscular Hemoglobin Concent 31.4 g/dL (32.0-36.0) Red Cell Distribution Width 17.2 % (11.5-14.5) Mean Platelet Volume 7.0 fL (7.2-11.1) Neutrophils (%) (Auto) 77.1 % (39.4-72.5) Lymphocytes (%) (Auto) 12.8 % (17.6-49.6) Monocytes (%) (Auto) 7.3 % (4.1-12.4) Eosinophils (%) (Auto) 2.2 % (0.4-6.7) Basophils (%) (Auto) 0.6 % (0.3-1.4) Nucleated RBC Relative Count (auto) 0.0 /100WBC Neutrophils # (Auto) 8.3 K/uL (2.0-7.4) Lymphocytes # (Auto) 1.4 K/uL (1.3-3.6) Monocytes # (Auto) 0.8 K/uL (0.3-1.0) Eosinophils # (Auto) 0.2 K/uL (0.0-0.5) Basophils # (Auto) 0.1 K/uL (0.0-0.1) Nucleated RBC Absolute Count (auto) 0.00 K/uL Prothrombin Time 13.9 seconds (12.0-14.4) Prothromb Time International Ratio 1.07 Activated Partial Thromboplast Time 36 seconds (23-35) Sodium Level 139 mmol/L (137-145) Potassium Level 4.7 mmol/L (3.5-5.0) Chloride Level 103 mmol/L (98-107) Carbon Dioxide Level 32 mmol/L (22-30) Blood Urea Nitrogen 14 mg/dl (9-21) Creatinine 0.80 mg/dl (0.66-1.25) Glomerular Filtration Rate Calc > 60.0 Random Glucose 103 mg/dl (75-110) Calcium Level 8.6 mg/dl (8.4-10.2) Total Bilirubin 0.5 mg/dl (0.2-1.3) Aspartate Amino Transf (AST/SGOT) 10 U/L (0-35) Alanine Aminotransferase (ALT/SGPT) 13 U/L (0-56) Alkaline Phosphatase 117 U/L (0-126) Troponin I 0.015 ng/ml B-Type Natriuretic Peptide 156 pg/ml (0-100) Total Protein 7.4 g/dl (6.3-8.2) Albumin 3.4 g/dl (3.5-5.0) Chemistry Test 05/13/18 12:19 05/13/18 12:28 05/13/18 13:23 Blood Gas Puncture Site Right radial Blood Gas Patient Temperature 98.3 DEGREES Arterial Blood pH 7.43 (7.35-7.45) Arterial Blood Partial Pressure CO2 42 mmHg (32-37) Arterial Blood Partial Pressure O2 94 mmHg (60-80) Arterial Blood HCO3 28 mmol/L (20-26) Arterial Blood Oxygen Saturation 98 % (92-100) Arterial Blood Base Excess 4.0 mmol/L Rickey Test Acceptable Oxygen Liters/Minute 40 White Blood Count 10.7 k/uL (4.5-11.0) Red Blood Count 3.72 M/uL (4.00-5.60) Hemoglobin 10.0 g/dL (14.0-18.0) Hematocrit 31.7 % (42.0-52.0) Mean Corpuscular Volume 85.4 fL (80.0-96.0) Mean Corpuscular Hemoglobin 26.8 pg (26.0-33.0) Mean Corpuscular Hemoglobin Concent 31.4 g/dL (32.0-36.0) Red Cell Distribution Width 17.2 % (11.5-14.5) Platelet Count 401 K/uL (150-450) Mean Platelet Volume 7.0 fL (7.2-11.1) Neutrophils (%) (Auto) 77.1 % (39.4-72.5) Lymphocytes (%) (Auto) 12.8 % (17.6-49.6) Monocytes (%) (Auto) 7.3 % (4.1-12.4) Eosinophils (%) (Auto) 2.2 % (0.4-6.7) Basophils (%) (Auto) 0.6 % (0.3-1.4) Nucleated RBC Relative Count (auto) 0.0 /100WBC Neutrophils # (Auto) 8.3 K/uL (2.0-7.4) Lymphocytes # (Auto) 1.4 K/uL (1.3-3.6) Monocytes # (Auto) 0.8 K/uL (0.3-1.0) Eosinophils # (Auto) 0.2 K/uL (0.0-0.5) Basophils # (Auto) 0.1 K/uL (0.0-0.1) Nucleated RBC Absolute Count (auto) 0.00 K/uL Prothrombin Time 13.9 seconds (12.0-14.4) Prothromb Time International Ratio 1.07 Activated Partial Thromboplast Time 36 seconds (23-35) Glomerular Filtration Rate Calc > 60.0 Calcium Level 8.6 mg/dl (8.4-10.2) Total Bilirubin 0.5 mg/dl (0.2-1.3) Aspartate Amino Transf (AST/SGOT) 10 U/L (0-35) Alanine Aminotransferase (ALT/SGPT) 13 U/L (0-56) Alkaline Phosphatase 117 U/L (0-126) Troponin I 0.015 ng/ml B-Type Natriuretic Peptide 156 pg/ml (0-100) Total Protein 7.4 g/dl (6.3-8.2) Albumin 3.4 g/dl (3.5-5.0) Coagulation Test 05/13/18 12:28 Prothrombin Time 13.9 seconds Prothromb Time International Ratio 1.07 Activated Partial Thromboplast Time 36 seconds EKG/Imaging EKG Interpretation EKG shows normal sinus rhythm with no significant ST segment or T-wave abnormalities. Monitor Interpretation: Normal Sinus Rhythm Imaging FACILITY: [facility] - [place] PATIENT NAME: Jaswinder Hall : 1945 MR: [id number] V: [id number] EXAM DATE: ORDERING PHYSICIAN: LEVI SAMANIEGO TECHNOLOGIST: Location: [facility] - [place] Patient: Jaswinder Hall : 1945 Visit/Account:[id number] Date of Sevice: 05/13/2018 EXAMINATION: Chest radiograph HISTORY: Short of breath COMPARISON: October 23, 2017 FINDINGS: Frontal view obtained. Lines/tubes: Spinal stimulator leads project over the thoracic spine as before. Cardiomediastinal silhouette: Normal. Lungs/pleura: Unchanged left costophrenic angle blunting. Mild bilateral mid to lower lung central groundglass opacification is new. Small new patchy opacity in the right lateral upper lung. Resolution of previously seen right costophrenic angle blunting. Bony structures/chest wall: No significant abnormality. IMPRESSION: 1. Small new nonspecific right lateral upper lung patchy opacity which may represent a developing pneumonia. Recommend 2-4 week chest radiograph follow-up to ensure resolution. 2. Nonspecific mild bilateral mid to lower lung central opacification which may represent mild pulmonary edema or a viral pneumonia. 3. Trace to small unchanged left pleural effusion. Report Dictated By: Samuel Gonzales MD at 05/13/2018 1:43 PM Report E-Signed By: Samuel Gonzales MD at 05/13/2018 1:46 PM WSN:[email or web address] ED Course/Re-evaluation Clinical Indication for ER IV: IV Access ED Course Plan at this time will be on albuterol treatment. We'll check him plenty screen along with chest x-ray. We'll check CBC CMP. Check troponin and brain naturetic peptide. 05/13/2018 2:09:43 pm with right upper lobe pneumonia. We'll treat with Rocephin and Zithromax. Patient will be admitted to the hospitalist service. Decision to Disposition Date: May 13, 2018 Decision to Disposition Time: 14:01 Depart Departure Latest Vital Signs Vital Signs Date Time Temp Pulse Resp B/P (MAP) Pulse Ox O2 Delivery O2 Flow Rate FiO2 05/13/18 13:12 91 18 05/13/18 13:12 89 Nasal Cannula 4.0 05/13/18 12:23 98.3 119/78 Impression: Primary Impression: Pneumonia Condition: Improved Disposition: Admitted from ER (to DR Thomas) Referrals: LEANNE DOWNING MD (PCP) Problem Qualifiers Primary Impression: Pneumonia Pneumonia type: due to unspecified organism Laterality: right Lung location: upper lobe of lung Qualified Codes: J18.1 - Lobar pneumonia, unspecified organism LEVI SAMANIEGO MD May 13, 2018 12:32
[2018-05-13 12:35] LABS: INR 1.07
--- NOTE | 2018-05-13 12:56 | EKG ---
FACILITY: [facility] - [place] PATIENT NAME: YVES HERRING : [id number] MR: [id number] V: [id number] EXAM DATE: ORDERING PHYSICIAN: LEVI SAMANIEGO TECHNOLOGIST: LORI Schulz Reason : SOB Blood Pressure : / mmHG Vent. Rate : 083 BPM Atrial Rate : 083 BPM P-R Int : 158 ms QRS Dur : 094 ms QT Int : 394 ms P-R-T Axes : 053 049 028 degrees QTc Int : 462 ms Normal sinus rhythm Incomplete right bundle branch block When compared with ECG of 02-SEP-2017 15:55, Nonspecific T wave abnormality no longer evident in Anterior leads Confirmed by ISACC MARMOLEJO ([id number]) on 05/13/2018 10:10:06 PM Referred By: ADEN Confirmed By:ISACC MARMOLEJO
[2018-05-13] MEDS ORDERED: MORPHINE 4 MG/ML SDV IVP ONE (13:40)
--- NOTE | 2018-05-13 13:49 | RADIOLOGY IMAGING REPORT ---
FACILITY: [facility] [place] PATIENT NAME: Jaswinder Hall : 1945 MR: [id number] V: [id number] EXAM DATE: ORDERING PHYSICIAN: LEVI SAMANIEGO TECHNOLOGIST: Location: [facility] [place] Patient: Jaswinder Hall : 1945 Visit/Account:[id number] Date of Sevice: 05/13/2018 EXAMINATION: Chest radiograph HISTORY: Short of breath COMPARISON: October 23, 2017 FINDINGS: Frontal view obtained. Lines/tubes: Spinal stimulator leads project over the thoracic spine as before. Cardiomediastinal silhouette: Normal. Lungs/pleura: Unchanged left costophrenic angle blunting. Mild bilateral mid to lower lung central groundglass opacification is new. Small new patchy opacity in the right lateral upper lung. Resolut ion of previously seen right costophrenic angle blunting. Bony structures/chest wall: No significant abnormality. IMPRESSION: 1. Small new nonspecific right lateral upper lung patchy opacity which may represent a developing pn eumonia. Recommend 2-4 week chest radiograph follow-up to ensure resolution. 2. Nonspecific mild bilateral mid to lower lung central opacification which may represent mild pulmo nary edema or a viral pneumonia. 3. Trace to small unchanged left pleural effusion. Report Dictated By: Samuel Gonzales MD at 05/13/2018 1:43 PM Report E-Signed By: Samuel Gonzales MD at 05/13/2018 1:46 PM WSN:[email or web address]
[2018-05-13] MEDS ORDERED: AZITHROMYCIN(*) 500 MG 500 MG in NS(*) 0.9% 250 ML BAG 250 ML IVPB ONE (14:05)
[2018-05-13] MEDS ORDERED: cefTRIAXone 1 GM VIAL IVP ONE (14:05)
[2018-05-13] MEDS ORDERED: GABA-549 PO (14:52)
[2018-05-13] MEDS ORDERED: CAR3.125 PO (14:52)
[2018-05-13] MEDS ORDERED: BUDE10.2 INH (14:52)
[2018-05-13] MEDS ORDERED: PER PO (14:52)
[2018-05-13] MEDS ORDERED: DULO60CA7 PO (14:52)
[2018-05-13 15:10] VITALS: BP 125/68
[2018-05-13] MEDS ORDERED: ALBUTEROL 2.5 MG/3 ML NEB NEB PRN (16:10)
[2018-05-13] MEDS ORDERED: methylPREDNIS SUCC 125 MG/2ML IVP ONE (16:10)
[2018-05-13] MEDS ORDERED: traZODone HCL 50 MG TAB PO PRN (16:10)
--- NOTE | 2018-05-13 16:22 | History & Physical ---
History of Present Illness Chief Complaint Shortness of breath History of Present Illness This patient presented to the emergency room complaining of increased shortness of breath. He reports having increased difficulty over the past few weeks. He has not been on any recent antibiotics and has not been on prednisone recently. History Problems: (1) Pulmonary hypertension Status: Chronic (2) Gout, unspecified Status: Chronic (3) COPD (chronic obstructive pulmonary disease) Status: Chronic (4) Mixed hyperlipidemia Onset Date: 02/13/2014 Status: Chronic (5) Depression Status: Chronic (6) Coronary artery disease Status: Chronic (7) Hypertension, benign Onset Date: 02/13/2014 Status: Chronic (8) BPH (benign prostatic hyperplasia) Status: Chronic (9) History of lumbosacral spine surgery Status: Resolved (10) S/P cholecystectomy Status: Resolved Home Meds Active Scripts Morphine Sulfate (MORPHINE SULFATE ER) 60 Mg Tablet.er, 60 MG PO BID, #60 TAB Prov:LEANNE DOWNING MD 05/10/18 Tamsulosin Hcl (TAMSULOSIN HCL) 0.4 Mg Cap.er.24h, 2 CAP PO DAILY, #180 CAP 1 Refill Prov:LEANNE DOWNING MD 04/01/18 Trazodone Hcl (TRAZODONE HCL) 100 Mg Tablet, 100 MG PO QHS PRN for insomnia, #90 TAB 1 Refill Prov:LEANNE DOWNING MD 03/06/18 Pantoprazole Sodium (PANTOPRAZOLE SODIUM) 40 Mg Tablet.dr, 40 MG PO BID, #180 TAB.SR 3 Refills Prov:LEANNE DOWNING MD 03/06/18 Bupropion Hcl (BUPROPION HCL SR) 150 Mg Tablet.er, 1 TAB PO QDAY, #90 TAB 1 Refill Prov:LEANNE DOWNING MD 01/30/18 Simvastatin (SIMVASTATIN) 20 Mg Tablet, 1 TAB PO HS, #90 TAB 4 Refills Prov:LEANNE DOWNING MD 12/07/17 Albuterol Sulfate 90 Mcg/Act (PROAIR HFA 90 MCG/ACT) 8.5 Gm Hfa.aer.ad, 2 PUFF IH Q4-6H PRN for SHORTNESS OF BREATH, #1 INHALER 3 Refills Prov:LEANNE DOWNING MD 11/05/17 Docusate Sodium (DOCUSATE SODIUM) 100 Mg Capsule, 100 MG PO BID for 14 Days, #30 CAPSULE Prov:SERA VUONG MD 09/15/17 Allopurinol (ALLOPURINOL) 100 Mg Tablet, 1 TAB PO QDAY, #90 TAB 4 Refills TAKE 1 TABLET BY MOUTH EVERY DAY Prov:LEANNE DOWNING MD 08/22/17 Oxygen (OXYGEN) Inha, 4-5 L INH q daily, #4 L Oxygen at 4-5L continuous and may increase to 6L with activity Prov:AURE MULLINS MD 12/29/15 Reported Medications Budesonide/Formoterol Fumarate (SYMBICORT 160-4.5 MCG INHALER) 10.2 Gm Inh, 10.2 GM INH BID, INH 05/13/18 Duloxetine HCl (Duloxetine HCl) 60 Mg Capsule.dr, 30 MG PO BID 05/13/18 Oxycodone/Acetaminophen (OXYCODONE/ACETAMINOPHEN 5MG/325 MG) 5 Mg/325 Mg Tab, 10 MG PO BID 05/13/18 Carvedilol (CARVEDILOL) 3.125 Mg Tab, 3.125 MG PO BID, TAB 05/13/18 Gabapentin (GABAPENTIN) 300 Mg Capsule, 300 MG PO TID, CAPSULE 05/13/18 Aspirin (ASPIR 81) 81 Mg Tablet.dr, 81 MG PO QDAY, TAB 03/15/17 Tiotropium [place] (SPIRIVA) 18 Mcg/Cap Inh, 18 MCG INH DAILY, INH 12/28/15 Multivitamin (MULTI VITAMIN DAILY) 1 Each Tablet, 1 EACH PO DAILY 07/17/14 Discontinued Reported Medications Folic Acid (FOLIC ACID) 1 Mg Tablet, 1 MG PO QDAY, TAB 12/06/17 Cyanocobalamin (Vitamin B-12) (B-12) 1,000 Mcg Tablet.er, 1000 MCG PO QDAY, TAB 12/06/17 Fluticasone/Salmeterol (ADVAIR HFA 115-21 MCG INHALER) 12 Gm Hfa.aer.ad, 2 PUFF IH BID 04/09/17 Discontinued Scripts Oxycodone Hcl/Acetaminophen (OXYCODONE-ACETAMINOPHEN 10-325) 1 Each Tablet, 1 EACH PO TID PRN for pain, #75 TAB Prov:LEANNE DOWNING MD 05/10/18 Gabapentin (GABAPENTIN) 300 Mg Capsule, 300 MG PO QID, #120 CAPSULE 6 Refills Prov:LEANNE DOWNING MD 04/30/18 Duloxetine HCl (Duloxetine HCl) 60 Mg Capsule.dr, 1 TAB PO BID, #180 TAB 2 Refills Prov:LEANNE DOWNING MD 01/18/18 Allergies: Coded Allergies: cyclobenzaprine (Verified Adverse Reaction, Intermediate, felt very sleepy and confused. , 05/13/18) Patient History: FH: [place] (myocardial infarction) MOTHER BROTHER OR SISTER FH: blindness FATHER FH: stroke MOTHER FHx: heart disease MOTHER Rectal cancer BROTHER OR SISTER Hx Smoking: Yes (SMOKED 1 PPD FOR 30 YEARS, QUIT 2002) Smoking Status: Former Smoker Exposure to Second Hand Smoke?: No Caffeine Intake: Coffee, Tea Caffeine/Cups Per Day: 3 CUPS COFFEE, 2 GLASSES TEA PER DAY Hx Alcohol Use: Yes Hx Substance Use Disorder: No Social Drug Use: Never Review of Systems All Systems Reviewed/Normal: Yes, Except as Noted Respiratory: Shortness of Breath Exam Vital Signs Vital Signs Date Time Temp Pulse Resp B/P (MAP) Pulse Ox O2 Delivery O2 Flow Rate FiO2 05/13/18 15:10 98.2 86 16 125/68 (87) 94 Nasal Cannula 6.0 Neuro: No Gross deficits Eyes: PERRLA Cardiovascular: Regular Rate and Rhythm Respiratory: Other (Bilateral crackles and wheezes.) GI: Abd Soft and Non-Tender Extremities: No Edema Integumentary: No Cyanosis Medical Decision Making Data Points Result Diagram: 05/13/18 1228 05/13/18 1228 Assessment and Plan Problems: (1) COPD exacerbation Assessment & Plan: He did present with increased shortness of breath over the last few weeks. He has been started on treatment with nebulizers and corticosteroids. (2) Bacterial pneumonia Assessment & Plan: His chest x-ray did show a possible infiltrate, but it is difficult to determine with all of his scarring. He is afebrile and his WBC is normal. He received a dose of ceftriaxone and azithromycin in the emergency department. We will placed him on oral cefdinir and azithromycin. (3) Gout, unspecified Status: Chronic Assessment & Plan: He is on chronic treatment with allopurinol. (4) Depression Status: Chronic Assessment & Plan: He is on chronic treatment with bupropion, duloxetine, and trazodone. (5) Coronary artery disease Status: Chronic Assessment & Plan: He is on chronic treatment with aspirin and carvedilol. (6) Chronic back pain Status: Chronic Assessment & Plan: He is on chronic treatment with MS Contin and Percocet. Copies to: LEANNE DOWNING MD ; Venous Thromboembolism Antithrombotics Is Pt On Any Antithrombotics?: No Exam Sepsis Risk: No Definite Risk ISACC MARMOLEJO DO May 13, 2018 16:22
[2018-05-13] MEDS: NS(*) 0.9% 1000 ML BAG 1,000 ML IV PRN (16:53)
[2018-05-13] MEDS: ALBUTEROL 2.5 MG/3 ML NEB NEB SCH ×2 (17:00→22:41)
[2018-05-13] MEDS: BUDESO/FORMOT 160/4.5 MCG 6 GM INH SCH (17:01)
[2018-05-13 18:41] VITALS: BP 131/98
[2018-05-13] MEDS: DOCUSATE SODIUM 100 MG CAP PO SCH (20:49)
[2018-05-13] MEDS: GABAPENTIN 300 MG CAP PO SCH (20:49)
[2018-05-13] MEDS: MORPHINE 60 MG PO SCH (20:49)
[2018-05-13] MEDS: DULoxetine HCL 30 MG CAPCR PO SCH (20:49)
[2018-05-13] MEDS: CARVEDILOL 3.125 MG TAB PO SCH (20:49)
[2018-05-13 23:12] VITALS: BP 140/75
--- NOTE | 2018-05-13 23:23 | RADIOLOGY IMAGING REPORT ---
FACILITY: [facility] - [place] PATIENT NAME: Jaswinder Hall : 1945 MR: [id number] V: [id number] EXAM DATE: ORDERING PHYSICIAN: ISACC MARMOLEJO TECHNOLOGIST: Location: [facility] [place] Patient: Jaswinder Hall : 1945 Visit/Account:[id number] Date of Sevice: 05/13/2018 KNEE 3 VIEW LEFT HISTORY: Fall with pain and swelling. COMPARISON: None. TECHNIQUE: AP, oblique, and lateral views of the left knee. FINDINGS: There is no fracture or dislocation. There is mild medial tibiofemoral joint compartment na rrowing. There is spurring of the lateral tibial spine. There is chondrocalcinosis, medially greater than laterally. There are mild to moderate vascular calcifications. IMPRESSION: 1. Degenerative changes, but no acute osseous abnormality of the knee. 2. Chondrocalcinosis, which can be seen in CPPD. 3. Mild to moderate vascular calcifications. Report Dictated By: Akua Navarro at 05/13/2018 11:18 PM Report E-Signed By: Akua Navarro at 05/13/2018 11:19 PM WSN:[id number]
[2018-05-14 02:27] VITALS: BP 118/72
[2018-05-14] MEDS: BUDESO/FORMOT 160/4.5 MCG 6 GM INH SCH (05:26)
[2018-05-14] MEDS: ALBUTEROL 2.5 MG/3 ML NEB NEB SCH ×2 (05:26→11:32)
[2018-05-14] MEDS ORDERED: TIOTROPIUM BROM INH 18 MCG/CAP INH SCH (06:00)
[2018-05-14 06:21] LABS: PLATELET COUNT, AUTOMATED 348 K/uL (150-450)
[2018-05-14] MEDS: NS(*) 0.9% 1000 ML BAG 1,000 ML IV PRN (06:23)
[2018-05-14 08:20] VITALS: BP 129/65
--- NOTE | 2018-05-14 08:30 | Antimicrobial Stewardship ---
Antimicrobial Stewardship Empiricly appropriate: Yes (CAP) Significant PMH: Yes (COPD) Support empiric regimen: Yes (Azithromycin, Omnicef) Approriate Cultures done: Yes (Blood Cx x 2 pending) IV to PO Opportunity: Yes (On oral antibiotics) Determine cumulative duration: Day 2 Determine standard duration: 5 days Comment 72 yo M with a PMH of COPD who presented with SOB. WBC wnl Afebrile Chest xray: possible infiltrate, possibly viral Blood Cx: NGTD Plan: On oral onmicef and azithromycin, tolerating oral treatment, complete 5 day course of antibiotics for CAP. Rubia Gonzalez, PharmD, BCOP RUBIA GONZALEZ May 14, 2018 08:29
[2018-05-14] MEDS ORDERED: buPROPion SR 150 MG TABCR PO SCH (09:00)
[2018-05-14] MEDS ORDERED: ENOXAPARIN 40 MG/0.4ML SYR SC SCH (09:00)
[2018-05-14] MEDS ORDERED: TAMSULOSIN HCL 0.4 MG CAP PO SCH (09:00)
[2018-05-14] MEDS ORDERED: AZITHROMYCIN 250 MG TAB PO SCH (09:00)
[2018-05-14] MEDS ORDERED: CEFDINIR 300 MG CAP PO SCH (09:00)
[2018-05-14] MEDS ORDERED: predniSONE 20 MG TAB PO SCH (09:00)
[2018-05-14] MEDS ORDERED: ALLOPURINOL 100 MG TAB PO SCH (09:00)
[2018-05-14] MEDS ORDERED: ASPIRIN 81 MG ENTERIC COATED PO SCH (09:00)
[2018-05-14] MEDS: MORPHINE 60 MG PO SCH (09:24)
[2018-05-14] MEDS: DULoxetine HCL 30 MG CAPCR PO SCH (09:24)
[2018-05-14] MEDS: CARVEDILOL 3.125 MG TAB PO SCH (09:25)
[2018-05-14] MEDS: DOCUSATE SODIUM 100 MG CAP PO SCH (09:25)
[2018-05-14] MEDS: GABAPENTIN 300 MG CAP PO SCH (09:25)
[2018-05-14] MEDS ORDERED: AZIT-18 PO (11:50)
[2018-05-14] MEDS ORDERED: PRED20TA6 PO (11:50)
[2018-05-14] MEDS ORDERED: CEF300 PO (11:50)
--- NOTE | 2018-05-14 11:56 | Hospitalist Depart ---
Discharge Summary Reason for Hosp/Final Diag: (1) COPD exacerbation Hospital Course & Plan: He did present with increased shortness of breath over the last few weeks. He has been started on treatment with nebulizers and corticosteroids. Continue steroid course until gone. He does have very significant symptoms at baseline and per patient was feeling about like he does normally at home. Will increase O2 to baseline 5-6L and 7L with activity. (2) Bacterial pneumonia Hospital Course & Plan: His chest x-ray did show a possible infiltrate, but it is difficult to determine with all of his scarring. He is afebrile and his WBC is normal. He received a dose of ceftriaxone and azithromycin in the emergency department. We will placed him on oral cefdinir and azithromycin to complete 5 days therapy. (3) Gout, unspecified Status: Chronic Hospital Course & Plan: He is on chronic treatment with allopurinol. (4) Depression Status: Chronic Hospital Course & Plan: He is on chronic treatment with bupropion, duloxetine, and trazodone. (5) Coronary artery disease Status: Chronic Hospital Course & Plan: He is on chronic treatment with aspirin and carvedilol. (6) Chronic back pain Status: Chronic Hospital Course & Plan: He is on chronic treatment with MS Contin and Percocet. Departure Weight (Pounds): 170 Weight (Ounces): 8.0 Result Diagram: 05/14/1853905/14/18539 Condition: Improved Discharge: Home Discharge Instructions Home Meds Active Scripts Prednisone (PREDNISONE) 20 Mg Tablet, 40 MG PO QDAY for 8 Days, #11 TAB Prov:CAMDEN HENRY DO 05/14/18 Cefdinir 300 Mg Cap (OMNICEF 300 MG CAP (OR EQUIV)) 300 Mg Cap, 300 MG PO BID for 3 Days, #7 CAP Prov:CAMDEN HENRY DO 05/14/18 Azithromycin 250 Mg Tab (AZITHROMYCIN 250 MG TAB) 250 Mg Tablet, 250 MG PO QDAY for 3 Days, #3 TAB Prov:CAMDEN HENRY DO 05/14/18 Morphine Sulfate (MORPHINE SULFATE ER) 60 Mg Tablet.er, 60 MG PO BID, #60 TAB Prov:LEANNE DOWNING MD 05/10/18 Tamsulosin Hcl (TAMSULOSIN HCL) 0.4 Mg Cap.er.24h, 2 CAP PO DAILY, #180 CAP 1 Refill Prov:LEANNE DOWNING MD 04/01/18 Trazodone Hcl (TRAZODONE HCL) 100 Mg Tablet, 100 MG PO QHS PRN for insomnia, #90 TAB 1 Refill Prov:LEANNE DOWNING MD 03/06/18 Pantoprazole Sodium (PANTOPRAZOLE SODIUM) 40 Mg Tablet.dr, 40 MG PO BID, #180 TAB.SR 3 Refills Prov:LEANNE DOWNING MD 03/06/18 Bupropion Hcl (BUPROPION HCL SR) 150 Mg Tablet.er, 1 TAB PO QDAY, #90 TAB 1 Refill Prov:LEANNE DOWNING MD 01/30/18 Simvastatin (SIMVASTATIN) 20 Mg Tablet, 1 TAB PO HS, #90 TAB 4 Refills Prov:LEANNE DOWNING MD 12/07/17 Albuterol Sulfate 90 Mcg/Act (PROAIR HFA 90 MCG/ACT) 8.5 Gm Hfa.aer.ad, 2 PUFF IH Q4-6H PRN for SHORTNESS OF BREATH, #1 INHALER 3 Refills Prov:LEANNE DOWNING MD 11/05/17 Docusate Sodium (DOCUSATE SODIUM) 100 Mg Capsule, 100 MG PO BID for 14 Days, #30 CAPSULE Prov:SERA VUONG MD 09/15/17 Allopurinol (ALLOPURINOL) 100 Mg Tablet, 1 TAB PO QDAY, #90 TAB 4 Refills TAKE 1 TABLET BY MOUTH EVERY DAY Prov:LEANNE DOWNING MD 08/22/17 Oxygen (OXYGEN) Inha, 4-5 L INH q daily, #4 L Oxygen at 4-5L continuous and may increase to 6L with activity Prov:AURE MULLINS MD 12/29/15 Reported Medications Budesonide/Formoterol Fumarate (SYMBICORT 160-4.5 MCG INHALER) 10.2 Gm Inh, 10.2 GM INH BID, INH 05/13/18 Duloxetine HCl (Duloxetine HCl) 60 Mg Capsule.dr, 30 MG PO BID 05/13/18 Oxycodone/Acetaminophen (OXYCODONE/ACETAMINOPHEN 5MG/325 MG) 5 Mg/325 Mg Tab, 10 MG PO BID 05/13/18 Carvedilol (CARVEDILOL) 3.125 Mg Tab, 3.125 MG PO BID, TAB 05/13/18 Gabapentin (GABAPENTIN) 300 Mg Capsule, 300 MG PO TID, CAPSULE 05/13/18 Aspirin (ASPIR 81) 81 Mg Tablet.dr, 81 MG PO QDAY, TAB 03/15/17 Tiotropium Dubberly (SPIRIVA) 18 Mcg/Cap Inh, 18 MCG INH DAILY, INH 12/28/15 Multivitamin (MULTI VITAMIN DAILY) 1 Each Tablet, 1 EACH PO DAILY 07/17/14 Discontinued Reported Medications Folic Acid (FOLIC ACID) 1 Mg Tablet, 1 MG PO QDAY, TAB 12/06/17 Cyanocobalamin (Vitamin B-12) (B-12) 1,000 Mcg Tablet.er, 1000 MCG PO QDAY, TAB 12/06/17 Fluticasone/Salmeterol (ADVAIR HFA 115-21 MCG INHALER) 12 Gm Hfa.aer.ad, 2 PUFF IH BID 04/09/17 Discontinued Scripts Oxycodone Hcl/Acetaminophen (OXYCODONE-ACETAMINOPHEN 10-325) 1 Each Tablet, 1 EACH PO TID PRN for pain, #75 TAB Prov:LEANNE DOWNING MD 05/10/18 Gabapentin (GABAPENTIN) 300 Mg Capsule, 300 MG PO QID, #120 CAPSULE 6 Refills Prov:LEANNE DOWNING MD 04/30/18 Duloxetine HCl (Duloxetine HCl) 60 Mg Capsule.dr, 1 TAB PO BID, #180 TAB 2 Refills Prov:LEANNE DOWNING MD 01/18/18 Diet: Regular Activity: As Tolerated Special Instructions: Increase your home O2 setting to 5-6L at rest and 7L with activity. Use your albuterol inhaler regularly. Copies to: LEANNE DOWNING MD ; Venous Thromboembolism Antithrombotics Is Pt On Any Antithrombotics?: No CAMDEN HENRY DO May 14, 2018 11:56
--- NOTE | 2018-05-14 14:19 | Transitional Care Management ---
Assessment Visit Type: Telephone Visit TCM Discharge Criteria Transitional Care Comment: =09/03 pt uncomfortable at this time but agrees to program. Left him some information adn will visit w him in AM. 09/18 He is glad to be at home. On 7L O2, getting SOB with activity, but recovers quickly, we reviewed his home meds, and symptoms to notify a MD for, or return to the ER. He refused the home visit, "I am not really feeling up to having company." 05/14/18 I spoke with Jaswinder briefly, but he was very tired, and asked for a call tomorrow. CARYN SALAZAR May 14, 2018 14:19
[2018-05-15] MEDS ORDERED: INFLUENZA VIRUS VAC 0.5ML SYR IM ONLY ONE (16:10)
== END 2018-05-14 12:40 | disposition home or self-care (01) | DRG 190 ==
LOC: ER 12:22 → MED 14:27
PROVIDERS: ADMIT Family Medicine; ATTEND Family Medicine
DX: J44.0 Chronic obstructive pulmonary disease with (acute) lower respiratory infection (principal); J15.9 Unspecified bacterial pneumonia; J44.1 Chronic obstructive pulmonary disease with (acute) exacerbation; I25.10 Atherosclerotic heart disease of native coronary artery without angina pectoris; G89.29 Other chronic pain; F32.9 Major depressive disorder, single episode, unspecified; M1A.9XX0 Chronic gout, unspecified, without tophus (tophi); K22.70 Barrett's esophagus without dysplasia; I12.9 Hypertensive chronic kidney disease with stage 1 through stage 4 chronic kidney disease, or unspecified chronic kidney disease; N18.9 Chronic kidney disease, unspecified; F10.21 Alcohol dependence, in remission; I27.20 Pulmonary hypertension, unspecified; E78.2 Mixed hyperlipidemia; N40.0 Benign prostatic hyperplasia without lower urinary tract symptoms; Z90.49 Acquired absence of other specified parts of digestive tract; Z87.891 Personal history of nicotine dependence; Z88.8 Allergy status to other drugs, medicaments and biological substances; Z95.5 Presence of coronary angioplasty implant and graft
CPT/HCPCS: 36415; 36600; 71045; 82040; 82247; 82310; 82374; 82435; 82565; 82803; 82947; 83880; 84075; 84132; 84155; 84295; 84450; 84460; 84484; 84520; 85025; 85610; 85730; 87040; 87502; 93005; 94640; 94644; 96365; 96375; 99285; J0456; J0696; J1650; J2270; J2930; J3535; J7030; J7050; J7512; J7611; J7613

== ENCOUNTER 2018-06-21 00:48 | Day surgery (SDC) | payer MEDICARE, BC ==
[2017-09-03 10:07] VITALS: Ht 175.3 cm; Wt 73.0 kg
[~2018-06-21] VITALS: Ht 175.3 cm; Wt 73.0 kg
[~2018-06-21 00:48] MED LIST changes: +AZIT-18 PO; +BUDE10.2 INH
[2018-06-21] MEDS ORDERED: LIDOCAINE MPF 1% 5 ML VIAL ONE (07:16)
[2018-06-21] MEDS ORDERED: PROPOFOL EMUL(*) 10MG/ML 20 ML 40 ML ONE (07:16)
[2018-06-21 08:20] VITALS: BP 127/67
[2018-06-21] MEDS ORDERED: LIDOCAINE/SOD BICARB 8.4% SYR ID ONE (08:30)
[2018-06-21] MEDS ORDERED: NORMOSOL R SOLN(*) 1000 ML BAG 1,000 ML IV PRN (08:30)
[2018-06-21] MEDS ORDERED: KETAMINE HCL-NS 50 MG/5 ML SYR ONE (10:18)
[2018-06-21] MEDS ORDERED: MIDAZOLAM 2 MG/2 ML VIAL ONE (10:18)
[2018-06-21 10:38] VITALS: BP 115/65
[2018-06-21] MEDS ORDERED: ONDANSETRON 4 MG/2 ML VIAL ONE (10:43)
--- NOTE | 2018-06-21 10:50 | Short(Outpt) Discharge Summary ---
Discharge Summary Reason for Hosp/Final Diag: (1) Dysphagia Status: Chronic Hospital Course & Plan: pt presented for egd. no complications. path pending. he will be discharged home when criteria met. Departure Discharge to: Home Discharge Instructions Home Meds Active Scripts Oxycodone Hcl/Acetaminophen (OXYCODONE-ACETAMINOPHEN 10-325) 1 Each Tablet, 1 EACH PO BID PRN for pain, #60 TAB Prov:LEANNE DOWNING MD 06/11/18 Morphine Sulfate (MORPHINE SULFATE ER) 60 Mg Tablet.er, 60 MG PO BID, #60 TAB Prov:LEANNE DOWNING MD 06/11/18 Trazodone Hcl (TRAZODONE HCL) 100 Mg Tablet, 100 MG PO QHS PRN for insomnia, #90 TAB 1 Refill Prov:LEANNE DOWNING MD 03/06/18 Pantoprazole Sodium (PANTOPRAZOLE SODIUM) 40 Mg Tablet.dr, 40 MG PO BID, #180 TAB.SR 3 Refills Prov:LEANNE DOWNING MD 03/06/18 Bupropion Hcl (BUPROPION HCL SR) 150 Mg Tablet.er, 1 TAB PO QDAY, #90 TAB 1 Refill Prov:LEANNE DOWNING MD 01/30/18 Simvastatin (SIMVASTATIN) 20 Mg Tablet, 1 TAB PO HS, #90 TAB 4 Refills Prov:LEANNE DOWNING MD 12/07/17 Albuterol Sulfate 90 Mcg/Act (PROAIR HFA 90 MCG/ACT) 8.5 Gm Hfa.aer.ad, 2 PUFF IH Q4-6H PRN for SHORTNESS OF BREATH, #1 INHALER 3 Refills Prov:LEANNE DOWNING MD 11/05/17 Allopurinol (ALLOPURINOL) 100 Mg Tablet, 1 TAB PO QDAY, #90 TAB 4 Refills TAKE 1 TABLET BY MOUTH EVERY DAY Prov:LEANNE DOWNING MD 08/22/17 Oxygen (OXYGEN) Inha, 4-5 L INH q daily, #4 L Oxygen at 4-5L continuous and may increase to 6L with activity Prov:AURE MULLINS MD 12/29/15 Reported Medications Budesonide/Formoterol Fumarate (SYMBICORT 160-4.5 MCG INHALER) 10.2 Gm Inh, 10.2 GM INH BID, INH 05/13/18 Duloxetine HCl (Duloxetine HCl) 60 Mg Capsule.dr, 30 MG PO BID 05/13/18 Gabapentin (GABAPENTIN) 300 Mg Capsule, 300 MG PO QID, CAPSULE 05/13/18 Aspirin (ASPIR 81) 81 Mg Tablet.dr, 81 MG PO QDAY, TAB 03/15/17 Tiotropium Meally (SPIRIVA) 18 Mcg/Cap Inh, 18 MCG INH DAILY, INH 12/28/15 Multivitamin (MULTI VITAMIN DAILY) 1 Each Tablet, 1 EACH PO DAILY 07/17/14 Discontinued Reported Medications Carvedilol (CARVEDILOL) 3.125 Mg Tab, 3.125 MG PO BID, TAB 05/13/18 Discontinued Scripts Nystatin (Nystatin) 100,000 Unit/Ml Oral.susp, 5 ML PO QID for 10 Days, #200 ML 0 Refills Prov:GIUSEPPE JAUREGUI DNP, [employer] OPERATOR-BC 05/24/18 Prednisone (PREDNISONE) 20 Mg Tablet, 40 MG PO QDAY for 8 Days, #11 TAB Prov:CAMDEN HENRY DO 05/14/18 Cefdinir 300 Mg Cap (OMNICEF 300 MG CAP (OR EQUIV)) 300 Mg Cap, 300 MG PO BID for 3 Days, #7 CAP Prov:CAMDEN HENRY DO 05/14/18 Azithromycin 250 Mg Tab (AZITHROMYCIN 250 MG TAB) 250 Mg Tablet, 250 MG PO QDAY for 3 Days, #3 TAB Prov:CAMDEN HENRY DO 05/14/18 Tamsulosin Hcl (TAMSULOSIN HCL) 0.4 Mg Cap.er.24h, 2 CAP PO DAILY, #180 CAP 1 Refill Prov:LEANNE DOWNING MD 04/01/18 Docusate Sodium (DOCUSATE SODIUM) 100 Mg Capsule, 100 MG PO BID for 14 Days, #30 CAPSULE Prov:SERA VUONG MD 09/15/17 Diet: Regular Activity: As Tolerated Special Instructions: we will call you in 10 days with biopsy results. SHEFALI VITAL Jun 21, 2018 10:50
[2018-06-21 11:00] VITALS: BP 116/73
--- NOTE | 2018-06-21 11:00 | NUR ---
Patient requesting water, no longer complaining of nausea, this RN gave patient water, advised to drink slowly, patient took small sip and then immediately began coughing, patient was raised to 90 degrees and was able to cough thick schmitz secretions. patinet allowed to rest, oxygen saturation did not degrease, continued oxy mask for 5 more minutes and then attempted PO intake. No further signs of coughing or aspiration, patient placed on nasal cannula with baseline oxygen of 5L.
[2018-06-21 11:33] VITALS: BP 118/67
[2018-06-21 11:34] VITALS: BP 98/58
--- NOTE | 2018-06-21 12:00 | NUR ---
1133 PATIENT BEGAN DOING ORTHOSTATICS. HE DENIES ANY DIZZINESS OR LIGHTHEADEDNESS 1134 PATIENT WAS STABLE ON HER FEET 1135 IV WAS SALINE LOCKED 1136 PATIENT BEGAN GETTING DRESSED 1142 IV WAS DC'D WITH CATH INTACT 1200 PATIENT WAS TAKEN OUT VIA WHEELCHAIR. LUNGS ARE DIMINISHED THROUGHOUT. HE REMAINS ON 5 LITERS NASAL CANNULA. BOWEL SOUNDS ARE HYPERACTIVE. HE STATES HE HAS A SLIGHT SORE THROAT. PAIN IN HIS BACK REMAINS AT 5/10. DISCHARGE INSTRUCTIONS WITH GIVEN TO HIM AND HIS . THEY VERBALIZED UNDERSTANDING. SEE DISCHARGE ASSESSMENT.
== END 2018-06-21 12:00 | disposition home or self-care (01) ==
LOC: OR 00:48
PROVIDERS: ATTEND Surgery
DX: K44.9 Diaphragmatic hernia without obstruction or gangrene (principal); K20.9 Esophagitis, unspecified
CPT/HCPCS: 43239; 88305; 88313; J2001; J2250; J2405; J2704; J3490

== ENCOUNTER 2018-07-13 01:08 | Emergency (ER) | payer SELFPAY ==
[2018-07-13] MEDS ORDERED: NS(*) 0.9% 1000 ML BAG 1,000 ML IV ONE (01:16)
[2018-07-13] MEDS ORDERED: methylPREDNIS SUCC 125 MG/2ML IVP ONE (01:20)
[2018-07-13] MEDS ORDERED: LEVOPHED KIT (*) 1 IVSOL 0 KIT IV ONE (01:24)
[2018-07-13 01:53] LABS: PLATELET COUNT, AUTOMATED 517 K/uL (150-450)
--- NOTE | 2018-07-13 01:56 | ER Report ---
History and Physical Time Seen By MD: 01:10 ALEXYS/GOLDIE CHIEF COMPLAINT: Cardiac arrest HISTORY OF PRESENT ILLNESS: 73-year-old male with a history of COPD brought in by EMS. EMS responded to a 73-year-old male with shortness of breath. He came in full code. EMS administered 2 rounds of epinephrine with intraosseous is in both lower extremity. He was intubated by EMS with an ET tube #7.0 at 2 9 cm at the teeth. Patient had intact breath sounds bilaterally. CPR was continued on his arrival with a Shantanu. He was placed on a monitor. After another 2 rounds of epi. He did have a rhythm on the monitor. Subsequent. He developed a pulse. He however cannot maintain his pressure in his rhythm would rapidly deteriorated into asystole without further boluses of epi. REVIEW OF SYSTEMS: Unobtainable secondary to cardiac arrest Allergies: Coded Allergies: cyclobenzaprine (Verified Adverse Reaction, Intermediate, confusion/sleepiness, 07/13/18) Constitutional Vital Sign - Last 24 Hours 07/13/18 07/13/18 07/13/18 07/13/18 01:09 01:09 01:11 01:12 Temp 95.7 Pulse 0 83 Resp 20 37 B/P (MAP) 191/28 (82) O2 Delivery Ambu-Bag O2 Flow Rate 15.0 07/13/18 07/13/18 07/13/18 07/13/18 01:14 01:15 01:16 01:18 Pulse ??? 122 ??? Resp 101 10 23 B/P (MAP) 135/61 (85) 142/68 (92) Pulse Ox 73 07/13/18 07/13/18 07/13/18 07/13/18 01:20 01:22 01:23 01:24 Pulse 76 72 65 Resp 14 11 16 B/P (MAP) 77/45 (56) 41/29 (33) Pulse Ox 86 77 93 07/13/18 07/13/18 07/13/18 07/13/18 01:25 01:26 01:28 01:30 Pulse 103 72 77 Resp 100 13 B/P (MAP) 53/--- (40) 102/47 (65) 74/37 (49) Pulse Ox 88 73 07/13/18 07/13/18 07/13/18 07/13/18 01:32 01:33 01:34 01:36 Pulse 58 ??? 70 Resp 18 101 18 B/P (MAP) 37/27 (30) 104/59 (74) 103/49 (67) Pulse Ox 73 80 42 07/13/18 07/13/18 07/13/18 07/13/18 01:37 01:38 01:40 01:42 Pulse ??? 30 101 Resp 6 58 102 B/P (MAP) 86/32 (50) 134/67 (89) 123/99 (107) Pulse Ox 63 18 07/13/18 07/13/18 07/13/18 01:44 01:46 03:09 Pulse ? Resp 0 0 20 B/P (MAP) ???/??? (5195) Physical Exam General Appearance: Patient is comatose being ventilated. Shantanu performing CPR Respiratory: Breath sounds are equal bilaterally. Cardiac: Heart sounds are absent. DIFFERENTIAL DIAGNOSIS: After history and physical exam differential diagnosis was considered for cardiac arrest including myocardial infarction, arrhythmia, pulmonary embolus and severe electrolyte abnormality Medical Decision Making Data Points Result Diagram: 07/13/18 0116 07/13/18 0116 Laboratory Hematology Test 07/13/18 01:16 07/13/18 01:26 Red Blood Count 2.78 M/uL (4.00-5.60) Mean Corpuscular Volume 91.8 fL (80.0-96.0) Mean Corpuscular Hemoglobin 25.8 pg (26.0-33.0) Mean Corpuscular Hemoglobin Concent 28.1 g/dL (32.0-36.0) Red Cell Distribution Width 17.7 % (11.5-14.5) Mean Platelet Volume 7.7 fL (7.2-11.1) Neutrophils (%) (Auto) % (39.4-72.5) Lymphocytes (%) (Auto) % (17.6-49.6) Monocytes (%) (Auto) % (4.1-12.4) Eosinophils (%) (Auto) % (0.4-6.7) Basophils (%) (Auto) % (0.3-1.4) Nucleated RBC Relative Count (auto) /100WBC Neutrophils # (Auto) K/uL (2.0-7.4) Lymphocytes # (Auto) K/uL (1.3-3.6) Monocytes # (Auto) K/uL (0.3-1.0) Eosinophils # (Auto) K/uL (0.0-0.5) Basophils # (Auto) K/uL (0.0-0.1) Nucleated RBC Absolute Count (auto) K/uL Neutrophils % (Manual) 50 % (39.4-72.5) Band Neutrophils % 21 % Lymphocytes % (Manual) 23 % (17.6-49.6) Monocytes % (Manual) 4 % (4.1-12.4) Eosinophils % (Manual) 0 % (0.4-6.7) Basophils % (Manual) 1 % (0.3-1.4) Metamyelocytes % 1 % Platelet Estimate High Peripheral Blood Smear Yes Y/N Prothrombin Time 15.5 seconds (12.0-14.4) Prothromb Time International Ratio 1.23 Activated Partial Thromboplast Time 42 seconds (23-35) Blood Gas Puncture Site Right radial Blood Gas Patient Temperature 35.2 DEGREES Arterial Blood pH 6.99 (7.35-7.45) Arterial Blood Partial Pressure CO2 65 mmHg (32-37) Arterial Blood Partial Pressure O2 92 mmHg (60-80) Arterial Blood HCO3 16 mmol/L (20-26) Arterial Blood Oxygen Saturation 92 % (92-100) Arterial Blood Base Excess -16.0 mmol/L Rickey Test Nt avail Oxygen Liters/Minute 100% Sodium Level 136 mmol/L (137-145) Potassium Level 4.9 mmol/L (3.5-5.0) Chloride Level 98 mmol/L (98-107) Carbon Dioxide Level 19 mmol/L (22-30) Blood Urea Nitrogen 15 mg/dl (9-21) Creatinine 1.10 mg/dl (0.66-1.25) Glomerular Filtration Rate Calc > 60.0 Random Glucose 213 mg/dl (75-110) Lactate 13.0 mmol/L (0.7-2.1) Calcium Level 8.2 mg/dl (8.4-10.2) Total Bilirubin < 0.1 mg/dl (0.2-1.3) Aspartate Amino Transf (AST/SGOT) 14 U/L (0-35) Alanine Aminotransferase (ALT/SGPT) 18 U/L (0-56) Alkaline Phosphatase 118 U/L (0-126) Troponin I 0.029 ng/ml B-Type Natriuretic Peptide 791 pg/ml (0-100) Total Protein 5.5 g/dl (6.3-8.2) Albumin 2.4 g/dl (3.5-5.0) Urine Color Yellow Urine Clarity Slightly-cloudy Urine pH 5.0 pH (4.8-9.5) Urine Specific [place] 1.027 Urine Protein 30 mg/dL (NEGATIVE) Urine Glucose (UA) Negative mg/dL (NEGATIVE) Urine Ketones Negative mg/dL (NEGATIVE) Urine Blood Negative (NEGATIVE) Urine Nitrite Negative (NEGATIVE) Urine Bilirubin Small (NEGATIVE) Urine Urobilinogen 0.2 mg/dL (0.2-1.9) Urine Leukocyte Esterase Small (NEGATIVE) Urine RBC 1 /HPF (0-2/HPF) Urine WBC 27 /HPF (0-5/HPF) Urine WBC Clumps Few /HPF Urine Squamous Epithelial Cells Few /LPF (NONE-FEW) Urine Transitional Epithelial Cells Few /LPF (NONE-FEW) Urine Bacteria Negative /HPF (NONE-FEW) Urine Hyaline Casts Many /LPF (NONE-FEW) Urine Mucus None /HPF (NONE-FEW) Chemistry Test 07/13/18 01:16 07/13/18 01:26 White Blood Count 20.8 k/uL (4.5-11.0) Red Blood Count 2.78 M/uL (4.00-5.60) Hemoglobin 7.2 g/dL (14.0-18.0) Hematocrit 25.5 % (42.0-52.0) Mean Corpuscular Volume 91.8 fL (80.0-96.0) Mean Corpuscular Hemoglobin 25.8 pg (26.0-33.0) Mean Corpuscular Hemoglobin Concent 28.1 g/dL (32.0-36.0) Red Cell Distribution Width 17.7 % (11.5-14.5) Platelet Count 517 K/uL (150-450) Mean Platelet Volume 7.7 fL (7.2-11.1) Neutrophils (%) (Auto) % (39.4-72.5) Lymphocytes (%) (Auto) % (17.6-49.6) Monocytes (%) (Auto) % (4.1-12.4) Eosinophils (%) (Auto) % (0.4-6.7) Basophils (%) (Auto) % (0.3-1.4) Nucleated RBC Relative Count (auto) /100WBC Neutrophils # (Auto) K/uL (2.0-7.4) Lymphocytes # (Auto) K/uL (1.3-3.6) Monocytes # (Auto) K/uL (0.3-1.0) Eosinophils # (Auto) K/uL (0.0-0.5) Basophils # (Auto) K/uL (0.0-0.1) Nucleated RBC Absolute Count (auto) K/uL Neutrophils % (Manual) 50 % (39.4-72.5) Band Neutrophils % 21 % Lymphocytes % (Manual) 23 % (17.6-49.6) Monocytes % (Manual) 4 % (4.1-12.4) Eosinophils % (Manual) 0 % (0.4-6.7) Basophils % (Manual) 1 % (0.3-1.4) Metamyelocytes % 1 % Platelet Estimate High Peripheral Blood Smear Yes Y/N Prothrombin Time 15.5 seconds (12.0-14.4) Prothromb Time International Ratio 1.23 Activated Partial Thromboplast Time 42 seconds (23-35) Blood Gas Puncture Site Right radial Blood Gas Patient Temperature 35.2 DEGREES Arterial Blood pH 6.99 (7.35-7.45) Arterial Blood Partial Pressure CO2 65 mmHg (32-37) Arterial Blood Partial Pressure O2 92 mmHg (60-80) Arterial Blood HCO3 16 mmol/L (20-26) Arterial Blood Oxygen Saturation 92 % (92-100) Arterial Blood Base Excess -16.0 mmol/L Rickey Test Nt avail Oxygen Liters/Minute 100% Glomerular Filtration Rate Calc > 60.0 Lactate 13.0 mmol/L (0.7-2.1) Calcium Level 8.2 mg/dl (8.4-10.2) Total Bilirubin < 0.1 mg/dl (0.2-1.3) Aspartate Amino Transf (AST/SGOT) 14 U/L (0-35) Alanine Aminotransferase (ALT/SGPT) 18 U/L (0-56) Alkaline Phosphatase 118 U/L (0-126) Troponin I 0.029 ng/ml B-Type Natriuretic Peptide 791 pg/ml (0-100) Total Protein 5.5 g/dl (6.3-8.2) Albumin 2.4 g/dl (3.5-5.0) Urine Color Yellow Urine Clarity Slightly-cloudy Urine pH 5.0 pH (4.8-9.5) Urine Specific [place] 1.027 Urine Protein 30 mg/dL (NEGATIVE) Urine Glucose (UA) Negative mg/dL (NEGATIVE) Urine Ketones Negative mg/dL (NEGATIVE) Urine Blood Negative (NEGATIVE) Urine Nitrite Negative (NEGATIVE) Urine Bilirubin Small (NEGATIVE) Urine Urobilinogen 0.2 mg/dL (0.2-1.9) Urine Leukocyte Esterase Small (NEGATIVE) Urine RBC 1 /HPF (0-2/HPF) Urine WBC 27 /HPF (0-5/HPF) Urine WBC Clumps Few /HPF Urine Squamous Epithelial Cells Few /LPF (NONE-FEW) Urine Transitional Epithelial Cells Few /LPF (NONE-FEW) Urine Bacteria Negative /HPF (NONE-FEW) Urine Hyaline Casts Many /LPF (NONE-FEW) Urine Mucus None /HPF (NONE-FEW) Coagulation Test 07/13/18 01:16 Prothrombin Time 15.5 seconds Prothromb Time International Ratio 1.23 Activated Partial Thromboplast Time 42 seconds Urinalysis Test 07/13/18 01:26 Urine Color Yellow Urine Clarity Slightly-cloudy Urine pH 5.0 pH (4.8-9.5) Urine Specific [place] 1.027 Urine Protein 30 mg/dL (NEGATIVE) Urine Glucose (UA) Negative mg/dL (NEGATIVE) Urine Ketones Negative mg/dL (NEGATIVE) Urine Blood Negative (NEGATIVE) Urine Nitrite Negative (NEGATIVE) Urine Bilirubin Small (NEGATIVE) Urine Urobilinogen 0.2 mg/dL (0.2-1.9) Urine Leukocyte Esterase Small (NEGATIVE) Urine RBC 1 /HPF (0-2/HPF) Urine WBC 27 /HPF (0-5/HPF) Urine WBC Clumps Few /HPF Urine Squamous Epithelial Cells Few /LPF (NONE-FEW) Urine Transitional Epithelial Cells Few /LPF (NONE-FEW) Urine Bacteria Negative /HPF (NONE-FEW) Urine Hyaline Casts Many /LPF (NONE-FEW) Urine Mucus None /HPF (NONE-FEW) ED Course/Re-evaluation Clinical Indication for ER IV: Hydration, IV Access ED Course Patient was admitted to bed 5. A cardiac resuscitation was continued. There was started by EMS in the field. After 2 rounds of epi here in the emergency department and continued CPR patient. Obtained a pulse and rhythm. His pressure was 134/70. The Shantanu was discontinued. Patient's rhythm rapidly deteriorated and no pulses were palpable and we had resumed CPR with Shantanu. Patient had fluids pushed when his pressure returned well. He received multiple more rounds of epi, has noted per the code sheet. Each time his rhythm returned with a strong pulse but would rapidly deteriorate. He was started on Levaquin for drip and received illness. 2 L of fluid resuscitation, but continued to deteriorate. On his last rhythm check. He was in asystole. At this point, I decided to discontinue the resuscitation. After approximately 50 minutes of resuscitation, he could not maintain a stable rhythm, even with pressure support and Levaphed. He was pronounced . And that are resuscitation was unsuccessful. Decision to Disposition Date: Jul 13, 2018 Decision to Disposition Time: 01:47 Depart Departure Latest Vital Signs Vital Signs Date Time Temp Pulse Resp B/P (MAP) Pulse Ox O2 Delivery O2 Flow Rate FiO2 07/13/18 03:09 20 07/13/18 01:46 ??? 07/13/18 01:44 ???/??? (1665) 07/13/18 01:42 18 07/13/18 01:09 15.0 07/13/18 01:09 95.7 Ambu-Bag Impression: Primary Impression: Cardiac arrest Additional Impression: Hypotension Condition: Disposition: Problem Qualifiers Additional Impression: Hypotension Hypotension type: unspecified hypotension type Qualified Codes: I95.9 - Hypotension, unspecified LUBNA ARTEAGA DO Jul 13, 2018 01:56
--- NOTE | 2018-07-13 02:10 | RADIOLOGY IMAGING REPORT ---
FACILITY: PATIENT NAME: Jaswinder Hall : 1945 MR: [id number] V: [id number] EXAM DATE: ORDERING PHYSICIAN: LUBNA ARTEAGA TECHNOLOGIST: [place] [facility] [place]: Jaswinder Hall : 1945 Visit/Account:[id number] Date of Sevice: 07/13/2018 CHEST SINGLE AP Additional pertinent History: Code respiratory distress COMPARISON STUDIES: none FINDINGS: Support lines and catheters: ET tube well-positioned 4.5 cm from the jaskaran. Lungs and Pleura: Bilateral interstitial alveolar infiltrative changes throughout both lung asencio c entrally and a somewhat "bat wing" appearance. Blunting of both costophrenic angles left greater than right compatible small effusions Heart and vasculature: Arch mildly enlarged. Yumi and Mediastinum: Negative. Bones and Chest wall: No acute bony pathology Upper Abdomen: Negative. IMPRESSION: 1. Bilateral parenchymal opacities. Differential includes pulmonary edema/ARDS, infection or hemorrha ge. Report Dictated By: Bjorn Clemens MD at 07/13/2018 1:58 AM Report E-Signed By: Bjorn Clemens MD at 07/13/2018 2:05 AM WSN:[id number]
[2018-07-13 02:13] LABS: INR 1.23
[2018-07-13] MEDS ORDERED: D5W ONE (04:54)
== END 2018-07-13 01:47 | disposition expired ==
LOC: ER 01:44 → MERGE 01:44 → ER 01:47
DX: I46.9 Cardiac arrest, cause unspecified (principal); I95.9 Hypotension, unspecified
CPT/HCPCS: 36600; 71045; 81001; 82803; 83605; 83880; 84484; 85025; 85610; 85730; 99285; C1758; 82040; 82247; 82310; 82374; 82435; 82565; 82947; 84075; 84132; 84155; 84295; 84450; 84460; 84520; J0171

== ENCOUNTER → 2018-07-13 | Outpatient (CLI) | payer MEDICARE, BC ==
[~2018-07-13] MED LIST changes: +GABA-533 PO
== END ==
LOC: AMB 00:50
PROVIDERS: ATTEND Nurse Practitioner
DX: R40.20 Unspecified coma (principal)
CPT/HCPCS: A0425; A0433